=== PATIENT | female | born 1990 | race African-American/Black ===

== ENCOUNTER 2021-06-25 17:37 | Emergency (ER) | payer SELFPAY ==
[2021-06-25 17:58] VITALS: BP 95/64; PULSE 79; RESP 18; TEMP 36.8; O2SAT 100; BMI 24.7
[2021-06-25 19:24] LABS: Basophils # 0.1 10^3/uL (0.0-0.1); Basophils % 0.5 %; Eosinophils # 0.4 10^3/uL (0.0-0.8); Eosinophils % 3.4 %; Hematocrit 43.4 % (37.0-47.0); Hemoglobin 15.2 g/dL (11.5-15.3); Lymphocytes # 1.6 10^3/uL (0.8-4.8); Lymphocytes % 13.2 %; Mean Corpuscular Hemoglobin 30.2 pg (28.0-34.0); Mean Corpuscular Volume 86.3 fl (81-99); Mean Platelet Volume 10.8 fL (7.4-10.4); Monocytes # 0.5 10^3/uL (0.2-0.9); Monocytes % 4.4 %; Neutrophils # 9.16 10^3/uL (1.8-7.7); Neutrophils % 78.2 %; Nucleated Red Blood Cells % 0 %; Platelet Count 274 10^3/cmm (130-400); Red Blood Count 5.03 10^6/uL (4.1-5.3); Red Cell Distribution Width 11.8 % (12.1-15.1); White Blood Count 11.7 10^3/uL (4.0-10.0)
[2021-06-25 19:38] LABS: HCG, Serum Qual Positive (Negative)
[2021-06-25 19:43] LABS: Alanine Aminotransferase 35 U/L (0-33); Albumin Level 4.3 g/dL (3.5-5.2); Alkaline Phosphatase 67 IU/L (35-105); Anion Gap 14.8 (5-19); Aspartate Amino Transferase 18 U/L (0-32); Blood Urea Nitrogen 6 mg/dL (6-20); Calcium 8.9 mg/dL (8.5-10.5); Carbon Dioxide 25 mmol/L (22-29); Chloride 96 mmol/L (98-107); Globulin 3.1 g/dL (1.3-4.6); Glomerular Filtration Rate 177.8 mL/min (90-130); Glucose 79 mg/dL (65-115); Osmolality Calculated 269 mOsm/kg (285-295); Potassium 4.8 mmol/L (3.5-5.1); Sodium 131 mmol/L (136-145); Total Bilirubin 0.5 mg/dL (0.15-1.2); Total Protein 7.4 g/dL (6.6-8.7)
[2021-06-25 19:53] VITALS: BP 106/77; PULSE 81; RESP 18; O2SAT 100
[2021-06-25 20:23] LABS: Add Urine Microscopic? NO; Charge for UA Resulting for Rev
[2021-06-25 20:29] LABS: Bilirubin Urine Neg (Negative); Blood Urine Neg (Negative); Glucose Urine UA Norm (Normal); Ketones Urine 2+ (Negative); Leukocyte Esterase Urine Negative (Negative); Nitrate Urine Negative (Negative); Protein Urine Neg (Negative); Urine Appearance Clear (CLEAR); Urine Color Dark Yellow (Yellow); Urobilinogen Urine 1 mg/dL (Negative); pH Urine 6 (5-7)
[2021-06-25 20:37] LABS: Lipase 49 U/L (13-60)
--- NOTE | 2021-06-25 20:43 | W.ED.ABDPA2 ---
HPI - Abdominal Pain General: Chief Complaint: Abdominal Pain Stated Complaint: VOMITING BLOOD Time Seen by Provider: 06/25/21 20:30 Source: patient Mode of arrival: ambulatory Limitations: no limitations History of Present Illness: HPI narrative: 30-year-old female who is currently she states she is unsure when her last menstruation was but she believes it was just 8 weeks ago states that tonight she has been having nausea vomiting with epigastric pain states been on for 3 days been taking [id number] medicine with no improvement states she had slight vomiting of blood. States she is abdominal pain in the epigastric region that is cramping in nature she rates a 2 out of 10 denies any vaginal bleeding denies any worsening proving factors denies any fevers. Associated Symptoms: Reports nausea and vomiting; Denies chills, dysuria and fever(s) Review of Systems Const: Denies: fever(s), chills, body aches or change in appetite Eyes: Denies: blurry vision or eye discomfort ENMT: Denies: throat pain or dental pain Card: Denies: chest pain Resp: Denies: dyspnea GI: Reports: abdominal pain, nausea and vomiting : Denies: dysuria Musc: Denies: neck pain or back pain Skin/Breast: Denies: rash Neuro: Denies: headache(s) Psych: Denies: depression Kartik/Lymph: Denies: easy bruising All/Imm: Denies: urticaria Physical Exam Const: COMMON NORMALS: no acute distress, patient oriented x3 and healthy appearing HENMT: COMMON NORMALS: normocephalic and atraumatic HEAD & SCALP: normocephalic and atraumatic Eye: COMMON NORMALS: Equal, round and reactive pupils present and EOMs intact bilaterally PUPIL: Yes Equal, round and reactive pupils present Neck/C-Spine: COMMON NORMALS: full ROM and supple Chest: COMMONS NORMALS: normal inspection of the chest and normal palpation of entire chest wall Resp: COMMON NORMALS: normal respiratory effort, No retractions, No use of accessory muscles and clear to auscultation bilaterally AUSCULTATION: clear to auscultation bilaterally Cardio: COMMON NORMALS: regular rate, regular rhythm and No murmurs present (Cardio) RATE: regular rate RHYTHM: regular rhythm GI: COMMON NORMALS: Normal to inspection, nondistended, normoactive bowel sounds present, Soft to palpation, non-tender and no masses PALPATION: Yes Soft to palpation Extremity: COMMON NORMALS: normal to inspection and full ROM Neuro: COMMON NORMALS: patient oriented x3, moves all extremities and no focal motor deficits Psych: COMMON NORMALS: mental status grossly normal, Normal thought process present and cooperative THOUGHT PROCESS: Normal thought process present Skin: COMMON NORMALS: no rashes or lesions noted and no wounds GENERAL SKIN EXAM: no rashes or lesions noted Course Vital Signs: Vital signs: Vital Signs Temperature 98.2 F 06/25/21 17:58 Pulse Rate 81 06/25/21 19:53 Respiratory Rate 18 06/25/21 19:53 Blood Pressure 106/77 06/25/21 19:53 Pulse Oximetry 100 06/25/21 19:53 MDM - Abdominal Pain MDM Narrative: Medical decision making narrative: Patient presents here with vomiting in she feels much improved here after Reglan abdominal exam at discharge benign she has no tenderness on exam no signs of cholecystitis I did a bedside ultrasound showed IUP roughly 7 to 8 weeks heart rate 146. Will prescribe her Reglan get her follow-up with OB she is return if worsening her and her understand agree to plan. Lab Data: Labs: Lab Results 06/25/21 06/25/21 06/25/21 18:07 19:14 19:14 WBC 11.7 10^3/uL H 10 ^3/uL (4.0-10.0) RBC 5.03 10^6/uL 10^6 /uL (4.1-5.3) Hgb 15.2 g/dL g/dL (11.5-15.3) Hct 43.4 % % (37.0-47.0) MCV 86.3 fl fl (81-99) MCH 30.2 pg pg (28.0-34.0) MCHC 35.0 g/dL g/dL (30.0-36.0) RDW 11.8 % L % (12.1-15.1) Plt Count 274 10^3/cmm 10^3 /cmm (130-400) MPV 10.8 fL H fL (7.4-10.4) Neut % (Auto) 78.2 % % Lymph % (Auto) 13.2 % % [place] % (Auto) 4.4 % % Eos % (Auto) 3.4 % % Baso % (Auto) 0.5 % % Neut # (Auto) 9.16 10^3/uL H 10 ^3/uL (1.8-7.7) Lymph # (Auto) 1.6 10^3/uL 10^3/ uL (0.8-4.8) [place] # (Auto) 0.5 10^3/uL 10^3/ uL (0.2-0.9) Eos # (Auto) 0.4 10^3/uL 10^3/ uL (0.0-0.8) Baso # (Auto) 0.1 10^3/uL 10^3/ uL (0.0-0.1) Nucleated RBC % (a uto) 0 % % Nucleated RBCs # 0.0 /100WBC /100W BC Sodium 131 mmol/L L mmol /L (136-145) Potassium 4.8 mmol/L mmol/L (3.5-5.1) Chloride 96 mmol/L L mmol/ L (98-107) Carbon Dioxide 25 mmol/L mmol/L (22-29) Anion Gap 14.8 (5-19) BUN 6 mg/dL mg/dL (6-20) Creatinine 0.5 mg/dL mg/dL (0.5-0.9) GFR Calculation 177.8 mL/min H mL /min (90-130) Glucose 79 mg/dL mg/dL (65-115) Calculated Osmolal ity 269 mOsm/kg L mOs m/kg (285-295) Calcium 8.9 mg/dL mg/dL (8.5-10.5) Total Bilirubin 0.5 mg/dL mg/dL (0.15-1.2) AST 18 U/L U/L (0-32) ALT 35 U/L H U/L (0-33) Alkaline Phosphata se 67 IU/L IU/L (35-105) Total Protein 7.4 g/dL g/dL (6.6-8.7) Albumin 4.3 g/dL g/dL (3.5-5.2) Globulin 3.1 g/dL g/dL (1.3-4.6) Lipase 49 U/L U/L (13-60) HCG, Qual Urine Color Dark yellow (Yellow) Urine Appearance Clear (CLEAR) Urine pH 6 (5-7) Ur Specific Gravit y 1.020 (1.005-1.030) Urine Protein Neg (Negative) Urine Glucose (UA) Norm (Normal) Urine Ketones 2+ H (Negative) Urine Blood Neg (Negative) Urine Nitrate Negative (Negative) Urine Bilirubin Neg (Negative) Urine Urobilinogen 1 mg/dL H mg/dL (Negative) Ur Leukocyte Daisha ase Negative (Negative) Blood Type Rho(D) Type 06/25/21 06/25/21 19:14 21:08 WBC RBC Hgb Hct MCV MCH MCHC RDW Plt Count MPV Neut % (Auto) Lymph % (Auto) [place] % (Auto) Eos % (Auto) Baso % (Auto) Neut # (Auto) Lymph # (Auto) [place] # (Auto) Eos # (Auto) Baso # (Auto) Nucleated RBC % (a uto) Nucleated RBCs # Sodium Potassium Chloride Carbon Dioxide Anion Gap BUN Creatinine GFR Calculation Glucose Calculated Osmolal ity Calcium Total Bilirubin AST ALT Alkaline Phosphata se Total Protein Albumin Globulin Lipase HCG, Qual Positive H (Negative) Urine Color Urine Appearance Urine pH Ur Specific Gravit y Urine Protein Urine Glucose (UA) Urine Ketones Urine Blood Urine Nitrate Urine Bilirubin Urine Urobilinogen Ur Leukocyte Daisha ase Blood Type B Positive Rho(D) Type Positive Discharge Plan Discharge Patient Disposition: Home Clinical Impression: Vomiting affecting Condition: Stable Prescriptions: New Reglan 10 mg tablet 10 mg PO Q6H PRN (Reason: nausea and vomiting) Qty: 20 RF: 0 Discharge Orders: Discharge ED (Routine); Ordered 06/25/21 Ordered By: Sandra Li Referrals: Yony Delarosa MD [Physician] - 1-3 days Discharge Diet: Advance as tolerated Discharge Activity: Resume usual activity Patient Instructions: Hyperemesis Gravidarum (ED) Coding Level of Care Code ED Knitting Demonstrator for Chg Fwd Exam Comprehensive
[2021-06-25] MEDS: diphenhydrAMINE 50 mg/mL SDV 1mL IVP (20:57)
[2021-06-25] MEDS: metoclopramide 5 mg/mL SDV 2 mL 10 MG IVP (20:57)
[2021-06-25] MEDS: sodium chloride 0.9% 1,000 ML 999 ML IV (21:11)
[2021-06-25 22:05] VITALS: BP 111/72; PULSE 80; RESP 16; O2SAT 94
--- NOTE | 2021-06-26 08:34 | DCPLANNER ---
Addendum entered by Rachael Zheng 07/27/21 06:05: hair salon manager called [facility], spoke with Eran to confirm that an appointment had been scheduled for patient. hair salon manager was told that clinic has tried multiple times to reach patient, and has not been able to speak with patient about an appointment. Clinic will send patient a letter asking patient to call clinic to schedule an appointment. Original Note: hair salon manager had message to schedule a follow up appointment for patient with [facility]. hair salon manager called [facility], spoke with Eran, gave clinic patients information. hair salon manager was told that patients information will be printed and reviewed. Clinic will call patient with appointment information.
--- NOTE | 2021-07-10 12:40 | DCPLANNER ---
business affairs manager called [facility] to confirm that a follow up appointment had been scheduled. business affairs manager was told that clinic has tried to call patient, does not have a voicemail set up. business affairs manager was told that a letter was sent to patient, to call clinic to schedule a follow up appointment.
== END 2021-06-25 22:06 | disposition home or self-care (01) ==
PROVIDERS: Nurse Practitioner Family; Emergency Provider Emergency Medicine
DX: O21.9 Vomiting of pregnancy, unspecified (principal); Z3A.08 8 weeks gestation of pregnancy
CPT/HCPCS: 80053; 81003; 83690; 84703; 85025; 86850; 86900; 96361; 96374; 96375; 99283; J1200; J2765; J7030

== ENCOUNTER 2021-06-27 22:47 | Emergency (ER) | payer SELFPAY ==
[2021-06-27 22:50] VITALS: BP 134/85; PULSE 111; RESP 18; TEMP 37.3; O2SAT 100; BMI 23.3
[2021-06-27 23:01] LABS: Basophils # 0.1 10^3/uL (0.0-0.1); Basophils % 0.4 %; Eosinophils # 0.3 10^3/uL (0.0-0.8); Eosinophils % 2.2 %; Hematocrit 42.7 % (37.0-47.0); Hemoglobin 15.5 g/dL (11.5-15.3); Lymphocytes # 2.8 10^3/uL (0.8-4.8); Lymphocytes % 20.3 %; Mean Corpuscular HGB Conc 36.3 g/dL (30.0-36.0); Mean Corpuscular Volume 82.8 fl (81-99); Mean Platelet Volume 10.8 fL (7.4-10.4); Monocytes # 0.7 10^3/uL (0.2-0.9); Monocytes % 5.3 %; Neutrophils # 9.87 10^3/uL (1.8-7.7); Neutrophils % 71.4 %; Nucleated Red Blood Cells % 0 %; Platelet Count 301 10^3/cmm (130-400); Red Blood Count 5.16 10^6/uL (4.1-5.3); Red Cell Distribution Width 11.6 % (12.1-15.1); White Blood Count 13.8 10^3/uL (4.0-10.0)
[2021-06-27] MEDS: benztropine 1 mg/mL SDV 2 mL IM (23:05)
[2021-06-27] MEDS: sodium chloride 0.9% 1,000 ML 999 ML IV (23:05)
[2021-06-27] MEDS: diphenhydrAMINE 50 mg/mL SDV 1mL IVP (23:06)
[2021-06-27 23:26] LABS: Alanine Aminotransferase 28 U/L (0-33); Albumin Level 4.6 g/dL (3.5-5.2); Alkaline Phosphatase 69 IU/L (35-105); Aspartate Amino Transferase 19 U/L (0-32); Blood Urea Nitrogen 6 mg/dL (6-20); Calcium 9.7 mg/dL (8.5-10.5); Carbon Dioxide 17 mmol/L (22-29); Chloride 95 mmol/L (98-107); Globulin 3.1 g/dL (1.3-4.6); Glomerular Filtration Rate 177.8 mL/min (90-130); Glucose 92 mg/dL (65-115); Osmolality Calculated 273 mOsm/kg (285-295); Sodium 133 mmol/L (136-145); Total Bilirubin 0.6 mg/dL (0.15-1.2); Total Protein 7.7 g/dL (6.6-8.7)
[2021-06-27 23:39] VITALS: BP 112/73; PULSE 85; RESP 16; O2SAT 97
--- NOTE | 2021-06-28 00:18 | W.ED.HA ---
HPI - Headache General: Chief Complaint: Headache Stated Complaint: PAIN BEHIND THE EYES Time Seen by Provider: 06/27/21 22:49 Source: patient and EMS Mode of arrival: EMS History of Present Illness: HPI Narrative: 30-year-old female who is here from home by EMS. Patient's currently 8 weeks seen by me yesterday for vomiting in . Patient was given IV Reglan states she took a pill at home to states that today she is just felt very off. She states she has abnormal movements feels like she is just shaking of her body having neck twitches. She denies any actual headache to me. Denies any fever denies any vomiting today denies abdominal pain or vaginal bleeding. Associated symptoms: Deny chest pain, fever(s), nausea, rash or vomiting Review of Systems Const: Denies: fever(s), chills, body aches or change in appetite Eyes: Denies: blurry vision or eye discomfort ENMT: Denies: throat pain or dental pain Card: Denies: chest pain Resp: Denies: dyspnea GI: Denies: abdominal pain, nausea, vomiting or diarrhea : Denies: dysuria Musc: Denies: neck pain or back pain Skin/Breast: Denies: rash Neuro: Denies: headache(s) Psych: Reports: anxiety Kartik/Lymph: Denies: easy bruising All/Imm: Denies: urticaria Physical Exam Const: COMMON NORMALS: patient oriented x3 and healthy appearing GENERAL APPEARANCE: anxious HENMT: COMMON NORMALS: normocephalic and atraumatic HEAD & SCALP: normocephalic and atraumatic Eye: COMMON NORMALS: Equal, round and reactive pupils present and EOMs intact bilaterally PUPIL: Yes Equal, round and reactive pupils present Neck/C-Spine: COMMON NORMALS: full ROM and supple Chest: COMMONS NORMALS: normal inspection of the chest and normal palpation of entire chest wall Resp: COMMON NORMALS: normal respiratory effort, No retractions, No use of accessory muscles and clear to auscultation bilaterally AUSCULTATION: clear to auscultation bilaterally Cardio: COMMON NORMALS: regular rate, regular rhythm and No murmurs present (Cardio) RATE: regular rate RHYTHM: regular rhythm GI: COMMON NORMALS: Normal to inspection, nondistended, normoactive bowel sounds present, Soft to palpation, non-tender and no masses PALPATION: Yes Soft to palpation Extremity: COMMON NORMALS: normal to inspection and full ROM Neuro: COMMON NORMALS: patient oriented x3, moves all extremities and no focal motor deficits Psych: COMMON NORMALS: mental status grossly normal, Normal thought process present and cooperative THOUGHT PROCESS: Normal thought process present Skin: COMMON NORMALS: no rashes or lesions noted and no wounds GENERAL SKIN EXAM: no rashes or lesions noted Course Vital Signs: Vital signs: Vital Signs Temperature 99.2 F 06/27/21 22:50 Pulse Rate 85 06/27/21 23:39 Respiratory Rate 16 06/27/21 23:39 Blood Pressure 112/73 06/27/21 23:39 Pulse Oximetry 97 06/27/21 23:39 MDM - Headache MDM Narrative: Medical decision making narrative: Patient presents here with I believe likely extrapyrimidial symptoms with akathisia is here from IV Reglan and p.o. Reglan. Patient here had symptoms consistent with EPS and felt much improved after Benadryl and Cogentin will have her stop the Reglan flipped over to Zofran. She has no headache here and had no headache at home no more vomiting no abdominal pain or vaginal bleeding she is to follow-up with OB and return if worsening. Lab Data: Labs: Lab Results 06/27/21 06/27/21 22:40 22:40 WBC 13.8 10^3/uL H 10 ^3/uL (4.0-10.0) RBC 5.16 10^6/uL 10^6 /uL (4.1-5.3) Hgb 15.5 g/dL H g/dL (11.5-15.3) Hct 42.7 % % (37.0-47.0) MCV 82.8 fl fl (81-99) MCH 30.0 pg pg (28.0-34.0) MCHC 36.3 g/dL H g/dL (30.0-36.0) RDW 11.6 % L % (12.1-15.1) Plt Count 301 10^3/cmm 10^3 /cmm (130-400) MPV 10.8 fL H fL (7.4-10.4) Neut % (Auto) 71.4 % % Lymph % (Auto) 20.3 % % [place] % (Auto) 5.3 % % Eos % (Auto) 2.2 % % Baso % (Auto) 0.4 % % Neut # (Auto) 9.87 10^3/uL H 10 ^3/uL (1.8-7.7) Lymph # (Auto) 2.8 10^3/uL 10^3/ uL (0.8-4.8) [place] # (Auto) 0.7 10^3/uL 10^3/ uL (0.2-0.9) Eos # (Auto) 0.3 10^3/uL 10^3/ uL (0.0-0.8) Baso # (Auto) 0.1 10^3/uL 10^3/ uL (0.0-0.1) Nucleated RBC % (a uto) 0 % % Nucleated RBCs # 0.0 /100WBC /100W BC Sodium 133 mmol/L L mmol /L (136-145) Potassium 3.0 mmol/L L mmol /L (3.5-5.1) Chloride 95 mmol/L L mmol/ L (98-107) Carbon Dioxide 17 mmol/L L mmol/ L (22-29) Anion Gap 24.0 H (5-19) BUN 6 mg/dL mg/dL (6-20) Creatinine 0.5 mg/dL mg/dL (0.5-0.9) GFR Calculation 177.8 mL/min H mL /min (90-130) Glucose 92 mg/dL mg/dL (65-115) Calculated Osmolal ity 273 mOsm/kg L mOs m/kg (285-295) Calcium 9.7 mg/dL mg/dL (8.5-10.5) Total Bilirubin 0.6 mg/dL mg/dL (0.15-1.2) AST 19 U/L U/L (0-32) ALT 28 U/L U/L (0-33) Alkaline Phosphata se 69 IU/L IU/L (35-105) Total Protein 7.7 g/dL g/dL (6.6-8.7) Albumin 4.6 g/dL g/dL (3.5-5.2) Globulin 3.1 g/dL g/dL (1.3-4.6) Discharge Plan Discharge Patient Disposition: Home Clinical Impression: Acathisia Condition: Stable Prescriptions: New ondansetron 4 mg tablet,disintegrating 4 mg PO Q6H PRN (Reason: nausea and vomiting) Qty: 14 RF: 0 Discontinued metoclopramide HCl [Reglan] 10 mg tablet 10 mg PO Q6H PRN (Reason: nausea and vomiting) Qty: 20 RF: 0 Discharge Orders: Discharge ED (Routine); Ordered 06/28/21 Ordered By: Sandra Li Discharge Diet: Advance as tolerated Discharge Activity: Resume usual activity Patient Instructions: Extrapyramidal Symptoms (ED) Coding Level of Care Code ED Master Scheduler for Nelson Dave
[2021-06-28 00:41] VITALS: BP 112/73; PULSE 85; RESP 16; O2SAT 97
== END 2021-06-28 00:51 | disposition home or self-care (01) ==
PROVIDERS: Emergency Provider Emergency Medicine
DX: O26.891 Other specified pregnancy related conditions, first trimester (principal); Z3A.08 8 weeks gestation of pregnancy; G25.71 Drug induced akathisia; T45.0X5A Adverse effect of antiallergic and antiemetic drugs, initial encounter
CPT/HCPCS: 80053; 85025; 96361; 96372; 96374; 99283; J0515; J1200; J7030

== ENCOUNTER 2021-07-12 15:06 | Observation (INO) | payer SELFPAY ==
[2021-07-12 16:10] VITALS: BP 115/74; PULSE 101; RESP 16; TEMP 36.9; O2SAT 98
--- NOTE | 2021-07-12 16:13 | ED_ITS ---
Documented by User: Katrin Choi PA-C 07/12/21 16:15 HPI - Nausea/Vomiting/Diarrhea General: Chief complaint: Nausea/Vomiting/Diarrhea Stated complaint: THROWING UP/FATIGUE Time Seen by Provider: 07/12/21 20:19 Source: family Mode of arrival: ambulatory Limitations: language barrier History of Present Illness: HPI Narrative: 30-year-old female presents to the ER today with her significant other for nausea and vomiting in . Significant other does most of the speaking due to a language barrier. He reports patient is approximately 9 weeks . She has had nausea and vomiting throughout so far. Patient did see her LABOR AND DELIVERY REGISTERED NURSE about 4 days ago. At that time she was given a shot and 2 pills for vomiting. Significant other reports that helped but when she ran out of the pills the nausea and vomiting started again. Patient reports she has unable to eat or drink due to throwing it right back up. Denies any vaginal bleeding or abdominal cramping. Denies any urinary symptoms. Patient denies headache, fever, chills, chest pain, shortness of breath. Denies any recent sick contacts. MD elicited complaint: nausea and vomiting Pertinent past history: other () Course Vital Signs: Vital signs: Vital Signs Temperature 98.4 F 07/12/21 16:10 Pulse Rate 101 H 07/12/21 16:10 Respiratory Rate 21 H 07/12/21 23:37 Blood Pressure 136/85 07/12/21 23:37 Pulse Oximetry 98 07/12/21 16:10 MDM - Nausea/Vomiting/Diarrhea Lab Data: Labs: Lab Results 07/12/21 07/12/21 07/12/21 18:46 18:46 18:46 WBC 13.0 10^3/uL H 10 ^3/uL (4.0-10.0) RBC 5.10 10^6/uL 10^6 /uL (4.1-5.3) Hgb 15.2 g/dL g/dL (11.5-15.3) Hct 43.1 % % (37.0-47.0) MCV 84.5 fl fl (81-99) MCH 29.8 pg pg (28.0-34.0) MCHC 35.3 g/dL g/dL (30.0-36.0) RDW 11.6 % L % (12.1-15.1) Plt Count 346 10^3/cmm 10^3 /cmm (130-400) MPV 10.2 fL fL (7.4-10.4) Neut % (Auto) 77.1 % % Lymph % (Auto) 12.9 % % [place] % (Auto) 4.9 % % Eos % (Auto) 4.2 % % Baso % (Auto) 0.5 % % Neut # (Auto) 10.01 10^3/uL H 1 0^3/uL (1.8-7.7) Lymph # (Auto) 1.7 10^3/uL 10^3/ uL (0.8-4.8) [place] # (Auto) 0.6 10^3/uL 10^3/ uL (0.2-0.9) Eos # (Auto) 0.5 10^3/uL 10^3/ uL (0.0-0.8) Baso # (Auto) 0.1 10^3/uL 10^3/ uL (0.0-0.1) Nucleated RBC % (a uto) 0 % % Nucleated RBCs # 0.0 /100WBC /100W BC Sodium 133 mmol/L L mmol /L (136-145) Potassium 4.0 mmol/L mmol/L (3.5-5.1) Chloride 95 mmol/L L mmol/ L (98-107) Carbon Dioxide 22 mmol/L mmol/L (22-29) Anion Gap 20.0 H (5-19) BUN 7 mg/dL mg/dL (6-20) Creatinine 0.4 mg/dL L mg/dL (0.5-0.9) GFR Calculation 230.0 mL/min H mL /min (90-130) Glucose 83 mg/dL mg/dL (65-115) Calculated Osmolal ity 273 mOsm/kg L mOs m/kg (285-295) Calcium 9.3 mg/dL mg/dL (8.5-10.5) Magnesium Total Bilirubin 0.6 mg/dL mg/dL (0.15-1.2) AST 54 U/L H U/L (0-32) ALT 129 U/L H U/L (0-33) Alkaline Phosphata se 116 IU/L H IU/L (35-105) Total Protein 7.6 g/dL g/dL (6.6-8.7) Albumin 4.3 g/dL g/dL (3.5-5.2) Globulin 3.3 g/dL g/dL (1.3-4.6) Lipase 57 U/L U/L (13-60) HCG, Qual Positive H (Negative) Ser , Vonnie i-Qnt Urine Color Urine Appearance Urine pH Ur Specific Gravit y Urine Protein Urine Glucose (UA) Urine Ketones Urine Blood Urine Nitrate Urine Bilirubin Urine Urobilinogen Ur Leukocyte Daisha ase Urine RBC Urine WBC Ur Squamous Epith Cells Amorphous Sediment Urine Bacteria Coronavirus 229E ( PCR) SARS-CoV-2 (PCR) 07/12/21 07/12/21 07/12/21 18:46 21:05 23:06 WBC RBC Hgb Hct MCV MCH MCHC RDW Plt Count MPV Neut % (Auto) Lymph % (Auto) [place] % (Auto) Eos % (Auto) Baso % (Auto) Neut # (Auto) Lymph # (Auto) [place] # (Auto) Eos # (Auto) Baso # (Auto) Nucleated RBC % (a uto) Nucleated RBCs # Sodium Potassium Chloride Carbon Dioxide Anion Gap BUN Creatinine GFR Calculation Glucose Calculated Osmolal ity Calcium Magnesium 1.9 mg/dL mg/dL (1.7-2.3) Total Bilirubin AST ALT Alkaline Phosphata se Total Protein Albumin Globulin Lipase HCG, Qual Ser , Vonnie i-Qnt 043498.00 mIU/mL mIU/mL Urine Color Yellow (Yellow) Urine Appearance Clear (CLEAR) Urine pH 6 (5-7) Ur Specific Gravit y 1.015 (1.005-1.030) Urine Protein Neg (Negative) Urine Glucose (UA) Norm (Normal) Urine Ketones 2+ H (Negative) Urine Blood Neg (Negative) Urine Nitrate Negative (Negative) Urine Bilirubin Neg (Negative) Urine Urobilinogen Neg mg/dL mg/dL (Negative) Ur Leukocyte Daisha ase 2+ H (Negative) Urine RBC 0-4 /hpf H /hpf (0-2) Urine WBC 10-15 /hpf H /hpf (0-5) Ur Squamous Epith Cells 10-15 /hpf H /hpf (0-5) Amorphous Sediment Not Reportable Urine Bacteria Trace /hpf /hpf (NONE) Coronavirus 229E ( PCR) Not detected (NOT DETECT) SARS-CoV-2 (PCR) Not detected (NOT DETECT) Discharge Plan Discharge Patient Disposition: Admitted As Inpatient Clinical Impression: Nausea and vomiting, , Cholecystitis Condition: Stable Discharge Diet: Advance as tolerated Discharge Activity: Resume usual activity Coding Level of Care Code ED Contract Law Specialist for Chg Fwd Exam Comprehensive Documented by User: Sandra Li MD 07/13/21 00:35 HPI - Nausea/Vomiting/Diarrhea General: Chief complaint: Nausea/Vomiting/Diarrhea Stated complaint: THROWING UP/FATIGUE Time Seen by Provider: 07/12/21 20:19 Physical Exam Const: COMMON NORMALS: no acute distress, patient oriented x3 and healthy appearing HENMT: COMMON NORMALS: normocephalic and atraumatic HEAD & SCALP: normocephalic and atraumatic Eye: COMMON NORMALS: Equal, round and reactive pupils present and EOMs intact bilaterally PUPIL: Yes Equal, round and reactive pupils present Neck/C-Spine: COMMON NORMALS: full ROM and supple Chest: COMMONS NORMALS: normal inspection of the chest and normal palpation of entire chest wall Resp: COMMON NORMALS: normal respiratory effort, No retractions, No use of accessory muscles and clear to auscultation bilaterally AUSCULTATION: clear to auscultation bilaterally Cardio: COMMON NORMALS: regular rate, regular rhythm and No murmurs present (Cardio) RATE: regular rate RHYTHM: regular rhythm GI: COMMON NORMALS: Normal to inspection, nondistended, normoactive bowel sounds present, Soft to palpation, non-tender and no masses PALPATION: Yes Soft to palpation and Yes Tenderness to palpation present (GI) Details: RUQ Extremity: COMMON NORMALS: normal to inspection and full ROM Neuro: COMMON NORMALS: patient oriented x3, moves all extremities and no focal motor deficits Psych: COMMON NORMALS: mental status grossly normal, Normal thought process present and cooperative THOUGHT PROCESS: Normal thought process present Skin: COMMON NORMALS: no rashes or lesions noted and no wounds GENERAL SKIN EXAM: no rashes or lesions noted Course Vital Signs: Vital signs: Vital Signs Temperature 98.4 F 07/12/21 16:10 Pulse Rate 101 H 07/12/21 16:10 Respiratory Rate 21 H 07/12/21 23:37 Blood Pressure 136/85 07/12/21 23:37 Pulse Oximetry 98 07/12/21 16:10 MDM - Nausea/Vomiting/Diarrhea MDM Narrative: Medical decision making narrative: Patient presents with a bdominal pain and ultrasound did show possible cholecystitis her white count here is mildly elevated as well she continues to have pain I did speak to surgery along with LABOR AND DELIVERY REGISTERED NURSE will admit patient for cholecystitis start her on antibiotics ultrasound of lower abdomen did show an IUP no related complaints no bleeding Lab Data: Labs: Lab Results 07/12/21 07/12/21 07/12/21 18:46 18:46 18:46 WBC 13.0 10^3/uL H 10 ^3/uL (4.0-10.0) RBC 5.10 10^6/uL 10^6 /uL (4.1-5.3) Hgb 15.2 g/dL g/dL (11.5-15.3) Hct 43.1 % % (37.0-47.0) MCV 84.5 fl fl (81-99) MCH 29.8 pg pg (28.0-34.0) MCHC 35.3 g/dL g/dL (30.0-36.0) RDW 11.6 % L % (12.1-15.1) Plt Count 346 10^3/cmm 10^3 /cmm (130-400) MPV 10.2 fL fL (7.4-10.4) Neut % (Auto) 77.1 % % Lymph % (Auto) 12.9 % % [place] % (Auto) 4.9 % % Eos % (Auto) 4.2 % % Baso % (Auto) 0.5 % % Neut # (Auto) 10.01 10^3/uL H 1 0^3/uL (1.8-7.7) Lymph # (Auto) 1.7 10^3/uL 10^3/ uL (0.8-4.8) [place] # (Auto) 0.6 10^3/uL 10^3/ uL (0.2-0.9) Eos # (Auto) 0.5 10^3/uL 10^3/ uL (0.0-0.8) Baso # (Auto) 0.1 10^3/uL 10^3/ uL (0.0-0.1) Nucleated RBC % (a uto) 0 % % Nucleated RBCs # 0.0 /100WBC /100W BC Sodium 133 mmol/L L mmol /L (136-145) Potassium 4.0 mmol/L mmol/L (3.5-5.1) Chloride 95 mmol/L L mmol/ L (98-107) Carbon Dioxide 22 mmol/L mmol/L (22-29) Anion Gap 20.0 H (5-19) BUN 7 mg/dL mg/dL (6-20) Creatinine 0.4 mg/dL L mg/dL (0.5-0.9) GFR Calculation 230.0 mL/min H mL /min (90-130) Glucose 83 mg/dL mg/dL (65-115) Calculated Osmolal ity 273 mOsm/kg L mOs m/kg (285-295) Calcium 9.3 mg/dL mg/dL (8.5-10.5) Magnesium Total Bilirubin 0.6 mg/dL mg/dL (0.15-1.2) AST 54 U/L H U/L (0-32) ALT 129 U/L H U/L (0-33) Alkaline Phosphata se 116 IU/L H IU/L (35-105) Total Protein 7.6 g/dL g/dL (6.6-8.7) Albumin 4.3 g/dL g/dL (3.5-5.2) Globulin 3.3 g/dL g/dL (1.3-4.6) Lipase 57 U/L U/L (13-60) HCG, Qual Positive H (Negative) Ser , Vonnie i-Qnt Urine Color Urine Appearance Urine pH Ur Specific Gravit y Urine Protein Urine Glucose (UA) Urine Ketones Urine Blood Urine Nitrate Urine Bilirubin Urine Urobilinogen Ur Leukocyte Daisha ase Urine RBC Urine WBC Ur Squamous Epith Cells Amorphous Sediment Urine Bacteria Coronavirus 229E ( PCR) SARS-CoV-2 (PCR) 07/12/21 07/12/21 07/12/21 18:46 21:05 23:06 WBC RBC Hgb Hct MCV MCH MCHC RDW Plt Count MPV Neut % (Auto) Lymph % (Auto) [place] % (Auto) Eos % (Auto) Baso % (Auto) Neut # (Auto) Lymph # (Auto) [place] # (Auto) Eos # (Auto) Baso # (Auto) Nucleated RBC % (a uto) Nucleated RBCs # Sodium Potassium Chloride Carbon Dioxide Anion Gap BUN Creatinine GFR Calculation Glucose Calculated Osmolal ity Calcium Magnesium 1.9 mg/dL mg/dL (1.7-2.3) Total Bilirubin AST ALT Alkaline Phosphata se Total Protein Albumin Globulin Lipase HCG, Qual Ser , Vonnie i-Qnt 425133.00 mIU/mL mIU/mL Urine Color Yellow (Yellow) Urine Appearance Clear (CLEAR) Urine pH 6 (5-7) Ur Specific Gravit y 1.015 (1.005-1.030) Urine Protein Neg (Negative) Urine Glucose (UA) Norm (Normal) Urine Ketones 2+ H (Negative) Urine Blood Neg (Negative) Urine Nitrate Negative (Negative) Urine Bilirubin Neg (Negative) Urine Urobilinogen Neg mg/dL mg/dL (Negative) Ur Leukocyte Daisha ase 2+ H (Negative) Urine RBC 0-4 /hpf H /hpf (0-2) Urine WBC 10-15 /hpf H /hpf (0-5) Ur Squamous Epith Cells 10-15 /hpf H /hpf (0-5) Amorphous Sediment Not Reportable Urine Bacteria Trace /hpf /hpf (NONE) Coronavirus 229E ( PCR) Not detected (NOT DETECT) SARS-CoV-2 (PCR) Not detected (NOT DETECT) Imaging Data^: US: Attestation: I personally reviewed and interpreted this imaging study as follows: Radiologist's impression: [address] [address] Ultrasound Report Signed Patient: Laura Thomas Unit #: [id number] : 1990 Age/Sex: 30 / F ADM Date: 07/12/21 Loc: ER Room/Bed: Attending Dr: Ordering Provider/Ordering MD: Corinna Tillman MD Date of Service: 07/12/21 Procedure(s): US gall bladder [id number] Accession Number(s): [id number] Report Number: [id number] PROCEDURE INFORMATION: Exam: US Abdomen; Limited Exam date and time: 07/12/2021 9:02 PM Age: 30 years old Clinical indication: Nausea and vomiting and other: 9w5d ; Other: Epigastric pain which radiates to the back x 20 days; Patient HX: Was seen in this er on the 22 of June for the same symptoms. Nausea and vomiting with epigastric pain while in early 1st trimester. ; Additional info: Ruq abd pain TECHNIQUE: Imaging protocol: US abdomen. Real time ultrasound with image documentation. Limited exam focused on the region of clinical interest. COMPARISON: US OB <=14 wk fetus w transvag 07/12/2021 9:24 PM FINDINGS: Liver: The liver is unremarkable. Gallbladder: Sonographic Rees sign is positive. There is echogenic debris without shadowing in the gallbladder lumen. The gallbladder wall is mildly diffusely thickened. There is no pericholecystic fluid. Gallbladder lumen is mildly distended. Common bile duct: The common bile duct is nondilated measuring 5 mm Pancreas: The visible portion of the pancreas is unremarkable. The distal body and tail is obscured. Right kidney: The right kidney is unremarkable. Appendix: The key ringer reports the presence of a normal appendix. 2 images are provided which suggest but do not confirm this finding. Aorta: The abdominal aorta is unremarkable. Portal venous: Portal vein is patent. Hepatopetal flow is demonstrated. Inferior vena cava: The IVC is unremarkable. Intraperitoneal space: No pelvic free fluid. Uterus: Intrauterine noted. US/US gall bladder [id number] IMPRESSION: Suggestive findings of acute cholecystitis including gallbladder sludge, wall thickening, and positive sonographic Rees sign. Dictated By: Remi Alvarenga MD Signed By: Remi Alvarenga MD Signed Date/Time: 07/12/212312 DD/ 01 Discharge Plan Discharge Patient Disposition: Admitted As Inpatient Clinical Impression: Nausea and vomiting, , Cholecystitis Condition: Stable Discharge Diet: Advance as tolerated Discharge Activity: Resume usual activity Coding Level of Care Code ED Contract Law Specialist for Chg Fwd Exam Comprehensive
[2021-07-12 19:06] LABS: Basophils # 0.1 10^3/uL (0.0-0.1); Basophils % 0.5 %; Eosinophils # 0.5 10^3/uL (0.0-0.8); Eosinophils % 4.2 %; Hematocrit 43.1 % (37.0-47.0); Hemoglobin 15.2 g/dL (11.5-15.3); Lymphocytes # 1.7 10^3/uL (0.8-4.8); Lymphocytes % 12.9 %; Mean Corpuscular HGB Conc 35.3 g/dL (30.0-36.0); Mean Corpuscular Hemoglobin 29.8 pg (28.0-34.0); Mean Corpuscular Volume 84.5 fl (81-99); Mean Platelet Volume 10.2 fL (7.4-10.4); Monocytes # 0.6 10^3/uL (0.2-0.9); Monocytes % 4.9 %; Neutrophils # 10.01 10^3/uL (1.8-7.7); Neutrophils % 77.1 %; Nucleated Red Blood Cells % 0 %; Platelet Count 346 10^3/cmm (130-400); Red Cell Distribution Width 11.6 % (12.1-15.1)
[2021-07-12 19:16] LABS: HCG, Serum Qual Positive (Negative)
[2021-07-12 19:24] LABS: Alanine Aminotransferase 129 U/L (0-33); Albumin Level 4.3 g/dL (3.5-5.2); Alkaline Phosphatase 116 IU/L (35-105); Aspartate Amino Transferase 54 U/L (0-32); Blood Urea Nitrogen 7 mg/dL (6-20); Calcium 9.3 mg/dL (8.5-10.5); Carbon Dioxide 22 mmol/L (22-29); Chloride 95 mmol/L (98-107); Globulin 3.3 g/dL (1.3-4.6); Glucose 83 mg/dL (65-115); Lipase 57 U/L (13-60); Osmolality Calculated 273 mOsm/kg (285-295); Sodium 133 mmol/L (136-145); Total Bilirubin 0.6 mg/dL (0.15-1.2); Total Protein 7.6 g/dL (6.6-8.7)
--- NOTE | 2021-07-12 20:19 | USR_ITS ---
PROCEDURE INFORMATION: Exam: US First Trimester, Transabdominal and US Duplex Artery or Vein, Ovaries, Limited Exam date and time: 07/12/2021 8:19 PM Age: 30 years old Clinical indication: Lmp or gestational age (in weeks): Nausea and vomiting x 20 days with epigastric pain, radiating to the back. No vaginal bleeding. ; complicated by abdominal or pelvic pain; Gestational age or lmp: 9w 4d by lmp; ; Additional info: Eval preg TECHNIQUE: Imaging protocol: Real-time transabdominal obstetrical ultrasound of the maternal pelvis and a first trimester , less than 14 weeks 0 days, with image documentation. Real-time duplex ultrasound scan of the arterial or venous flow of the ovaries with B-mode, color Doppler flow and spectral waveform analysis, limited Duplex. COMPARISON: US OB <= 14 weeks fetus [id number] 06/27/2021 11:24 AM FINDINGS: Gestation: Single live intrauterine gestation. Morphologically normal gestational sac. presentation: Variable presentation. Embryonic/ heart rate: 160 bpm Extra-embryonic membranes/Placenta: No subchorionic hematoma. Amniotic fluid: Amniotic fluid/chorionic fluid is normal for gestational age. BIOMETRY: Gestational age (AUA): 9 weeks 5 days by crown-rump length Estimated due date (AUA): 02/09/2022 by ultrasound (compares with 02/10/2022 by LMP) MATERNAL: Uterus: Uterine contours are normal. Cervix: The cervix is unremarkable. Right ovary/adnexa: The right ovary is morphologically normal. There is normal blood flow in the right ovary. The right ovary measures 4.2 x 4.0 x 1.8 cm. Left ovary/adnexa: Left ovarian corpus luteum noted. The left ovary is morphologically normal. There is normal blood flow in the left ovary. The left ovary measures 3.9 x 2.9 x 2.4 cm. Intraperitoneal space: No intraperitoneal free fluid. US/US OB <=14 wk fetus w transvag IMPRESSION: Single live intrauterine . No apparent complications.
[2021-07-12 20:52] LABS: Magnesium 1.9 mg/dL (1.7-2.3)
[2021-07-12] MEDS: sodium chloride 0.9% 1,000 ML 999 ML IV (21:02)
--- NOTE | 2021-07-12 21:02 | USR_ITS ---
PROCEDURE INFORMATION: Exam: US Abdomen; Limited Exam date and time: 07/12/2021 9:02 PM Age: 30 years old Clinical indication: Nausea and vomiting and other: 9w5d ; Other: Epigastric pain which radiates to the back x 20 days; Patient HX: Was seen in this er on the 22 of June for the same symptoms. Nausea and vomiting with epigastric pain while in early 1st trimester. ; Additional info: Ruq abd pain TECHNIQUE: Imaging protocol: US abdomen. Real time ultrasound with image documentation. Limited exam focused on the region of clinical interest. COMPARISON: US OB <=14 wk fetus w transvag 07/12/2021 9:24 PM FINDINGS: Liver: The liver is unremarkable. Gallbladder: Sonographic Rees sign is positive. There is echogenic debris without shadowing in the gallbladder lumen. The gallbladder wall is mildly diffusely thickened. There is no pericholecystic fluid. Gallbladder lumen is mildly distended. Common bile duct: The common bile duct is nondilated measuring 5 mm Pancreas: The visible portion of the pancreas is unremarkable. The distal body and tail is obscured. Right kidney: The right kidney is unremarkable. Appendix: The yarding supervisor reports the presence of a normal appendix. 2 images are provided which suggest but do not confirm this finding. Aorta: The abdominal aorta is unremarkable. Portal venous: Portal vein is patent. Hepatopetal flow is demonstrated. Inferior vena cava: The IVC is unremarkable. Intraperitoneal space: No pelvic free fluid. Uterus: Intrauterine noted. US/US gall bladder [id number] IMPRESSION: Suggestive findings of acute cholecystitis including gallbladder sludge, wall thickening, and positive sonographic Rees sign.
[2021-07-12] MEDS: famotidine 20 mg/2 mL INJ IVP (21:11)
--- NOTE | 2021-07-12 21:17 | ED_ITS ---
HPI - General Adult General: Chief complaint: Nausea/Vomiting/Diarrhea Stated complaint: THROWING UP/FATIGUE Time Seen by Provider: 07/12/21 20:19 Source: family Mode of arrival: ambulatory Limitations: language barrier History of Present Illness: HPI narrative: Patient is a G2, P1 at 9 weeks 4 days presenting to the emergency room for complaints of diffuse abdominal pain, decreased p.o. intake, nausea and vomiting x 3 weeks. Patient tells me that she was seen on 06/27/2021. Patient was prescribed Zofran for similar symptoms nausea and vomiting. Since then, patient continues to persist decreased p.o. intake of nausea and vomiting. In additoin, patient has complaints of upper abdominal pain. Patient has any cough, runny nose, sore throat, diarrhea, melena hematochezia. Patient has no urinary symptoms. Onset: 3 weeks ago Duration:3 weeks Location:home Severity:moderate Review of Systems Narrative: Constitutional: No fever, no chills. HEENT: No vision changes CV: No chest pain, no palpitations PULM: no cough, no dyspnea. GI: +Upper abdominal pain, +N/+V/-D. : No dysuria MSKEL: No muscle pain SKIN: No new rashes, no lesions. NEURO: No headache, no focal weakness. HEME: No visible bruises PSYCH: Normal mood PFSH ED PFSH: Surgical History (Updated 07/13/21 @ 09:10 by Pedro Luis Fierro MD) Status post laparoscopic cholecystectomy (07/13/21) Physical Exam Narrative: EXAM NARRATIVE: Head: Atraumatic Eyes: PERRL, conjunctiva without injection ENT: Mucous membrane moist NECK: Supple, ROM intact LUNGS: LCTAB, no crackles/rhonchi CV: RRR ABDOMEN: Soft, +mild epigastric and upper abdominal TTP. NO guarding rebound, guarding, rigidity. No CVA tenderness to percussion. Neg Rees/Neg McBurney's point tenderness, no suprabupic tenderness to palpation. EXTREMITY: Normal ROM SKIN: No rash or erythema NEURO: Awake and alert, no focal motor deficits PSYCH: Normal mood and affect Course Vital Signs: Vital signs: Vital Signs Temperature 98.5 F 07/14/21 15:29 Pulse Rate 95 07/14/21 15:29 Respiratory Rate 24 H 07/14/21 15:29 Blood Pressure 103/69 07/14/21 15:29 Pulse Oximetry 96 07/14/21 15:29 MDM - General Adult MDM Narrative: Medical decision making narrative: Patient is a 30-year-old female at 9 weeks and 4 days presenting to emergency room for evaluation of persistent nausea/vomiting and right upper quadrant abdominal pain x3 weeks. On exam, patient is afebrile with mild tenderness palpation the abdomen. No Rees sign. Patient is noted to have white count of 13.0 similar to prior presentation on 06/27. Patient sodium of 133, potassium of 4. Present time, for ultrasound confirmed IUP. Right upper quadrant ultrasound did not show any signs of gallbladder pathology. Patient received Zofran in the emergency room has been to tolerate p.o. without any difficulty. At the present time, given symptoms x3 weeks and similar leukocytosis, this is unlikely to be acute intra-abdominal pathology. No suspicion for other acute intra-abdominal pathology including SBO, biliary pathology, diverticulitis, or other emergent condition requiring surgery. Considered appendicitis however unlikely at this time given lack of signs and sx's to suggest appendicitis as etiology. Pt counseled that appendicitis may later develop and given appendicitis precautions and instructed to return if any development of RLQ tenderness, worsening or continued abdominal pain, or any fevers, chills, nausea, vomiting, or any other concerning signs or symptoms. Rx yeni, Diclegis, Zofran, as needed nausea & vomiting, tylenol PRN pain I have given patient follow up with our supervisor case loading to be seen by our outpatient OB for close followup for nausea/vomiting. Patient aware of a call from our supervisor case loading to schedule for appointment(s) and verbalizes und erstanding of the importance of following up. Disposition: Discharge. Patient counseled regarding diagnostic impression, treatment plan. Patient given ED strict return precautions to return for cont inuation, worsening, or development of new symptoms. Instructed to f/u w/ OB provider regarding symptoms today. Patient verbalized understanding. Lab Data: Labs: Lab Results 07/12/21 07/12/21 07/12/21 18:46 18:46 18:46 WBC 13.0 10^3/uL H 10 ^3/uL (4.0-10.0) RBC 5.10 10^6/uL 10^6 /uL (4.1-5.3) Hgb 15.2 g/dL g/dL (11.5-15.3) Hct 43.1 % % (37.0-47.0) MCV 84.5 fl fl (81-99) MCH 29.8 pg pg (28.0-34.0) MCHC 35.3 g/dL g/dL (30.0-36.0) RDW 11.6 % L % (12.1-15.1) Plt Count 346 10^3/cmm 10^3 /cmm (130-400) MPV 10.2 fL fL (7.4-10.4) Neut % (Auto) 77.1 % % Lymph % (Auto) 12.9 % % [place] % (Auto) 4.9 % % Eos % (Auto) 4.2 % % Baso % (Auto) 0.5 % % Neut # (Auto) 10.01 10^3/uL H 1 0^3/uL (1.8-7.7) Lymph # (Auto) 1.7 10^3/uL 10^3/ uL (0.8-4.8) [place] # (Auto) 0.6 10^3/uL 10^3/ uL (0.2-0.9) Eos # (Auto) 0.5 10^3/uL 10^3/ uL (0.0-0.8) Baso # (Auto) 0.1 10^3/uL 10^3/ uL (0.0-0.1) Nucleated RBC % (a uto) 0 % % Nucleated RBCs # 0.0 /100WBC /100W BC Sodium 133 mmol/L L mmol /L (136-145) Potassium 4.0 mmol/L mmol/L (3.5-5.1) Chloride 95 mmol/L L mmol/ L (98-107) Carbon Dioxide 22 mmol/L mmol/L (22-29) Anion Gap 20.0 H (5-19) BUN 7 mg/dL mg/dL (6-20) Creatinine 0.4 mg/dL L mg/dL (0.5-0.9) GFR Calculation 230.0 mL/min H mL /min (90-130) Glucose 83 mg/dL mg/dL (65-115) Calculated Osmolal ity 273 mOsm/kg L mOs m/kg (285-295) Calcium 9.3 mg/dL mg/dL (8.5-10.5) Magnesium Total Bilirubin 0.6 mg/dL mg/dL (0.15-1.2) AST 54 U/L H U/L (0-32) ALT 129 U/L H U/L (0-33) Alkaline Phosphata se 116 IU/L H IU/L (35-105) Total Protein 7.6 g/dL g/dL (6.6-8.7) Albumin 4.3 g/dL g/dL (3.5-5.2) Globulin 3.3 g/dL g/dL (1.3-4.6) Lipase 57 U/L U/L (13-60) HCG, Qual Positive H (Negative) Ser , Vonnie i-Qnt Urine Color Urine Appearance Urine pH Ur Specific Gravit y Urine Protein Urine Glucose (UA) Urine Ketones Urine Blood Urine Nitrate Urine Bilirubin Urine Urobilinogen Ur Leukocyte Daisha ase Urine RBC Urine WBC Ur Squamous Epith Cells Amorphous Sediment Urine Bacteria Coronavirus 229E ( PCR) SARS-CoV-2 (PCR) 07/12/21 07/12/21 07/12/21 18:46 21:05 23:06 WBC RBC Hgb Hct MCV MCH MCHC RDW Plt Count MPV Neut % (Auto) Lymph % (Auto) [place] % (Auto) Eos % (Auto) Baso % (Auto) Neut # (Auto) Lymph # (Auto) [place] # (Auto) Eos # (Auto) Baso # (Auto) Nucleated RBC % (a uto) Nucleated RBCs # Sodium Potassium Chloride Carbon Dioxide Anion Gap BUN Creatinine GFR Calculation Glucose Calculated Osmolal ity Calcium Magnesium 1.9 mg/dL mg/dL (1.7-2.3) Total Bilirubin AST ALT Alkaline Phosphata se Total Protein Albumin Globulin Lipase HCG, Qual Ser , Vonnie i-Qnt 572245.00 mIU/mL mIU/mL Urine Color Yellow (Yellow) Urine Appearance Clear (CLEAR) Urine pH 6 (5-7) Ur Specific Gravit y 1.015 (1.005-1.030) Urine Protein Neg (Negative) Urine Glucose (UA) Norm (Normal) Urine Ketones 2+ H (Negative) Urine Blood Neg (Negative) Urine Nitrate Negative (Negative) Urine Bilirubin Neg (Negative) Urine Urobilinogen Neg mg/dL mg/dL (Negative) Ur Leukocyte Daisha ase 2+ H (Negative) Urine RBC 0-4 /hpf H /hpf (0-2) Urine WBC 10-15 /hpf H /hpf (0-5) Ur Squamous Epith Cells 10-15 /hpf H /hpf (0-5) Amorphous Sediment Not Reportable Urine Bacteria Trace /hpf /hpf (NONE) Coronavirus 229E ( PCR) Not detected (NOT DETECT) SARS-CoV-2 (PCR) Not detected (NOT DETECT) Discharge Plan Discharge Patient Disposition: Admitted As Inpatient Admit Provider: Pedro Luis Fierro Clinical Impression: Nausea and vomiting, , Cholecystitis Condition: Stable Discharge Diet: Advance as tolerated Discharge Activity: Resume usual activity Coding Level of Care Code ED Manager Hospitality for Nelson Dave
[2021-07-12 22:46] VITALS: BP 113/71
[2021-07-12] MEDS: acetaminophen 500 mg Tablet PO (22:50)
[2021-07-12 22:54] LABS: Adenovirus Not Detected (NOT DETECT); Chlamydia Pneumoniae Not Detected (NOT DETECT); Coronavirus 229E,HKU1,NL63,OC4 Not Detected (NOT DETECT); Human Metapneumovirus Not Detected (NOT DETECT); Human Rhinovirus/Enterovirus Not Detected (NOT DETECT); Influenza A Not Detected (NOT DETECT); Influenza A H1 Not Detected (NOT DETECT); Influenza A H1-2009 Not Detected (NOT DETECT); Influenza A H3 Not Detected (NOT DETECT); Influenza B Not Detected (NOT DETECT); Mycoplasma Pneumoniae Not Detected (NOT DETECT); Parainfluenza Virus Type 1 Not Detected (NOT DETECT); Parainfluenza Virus Type 2 Not Detected (NOT DETECT); Parainfluenza Virus Type 3 Not Detected (NOT DETECT); Parainfluenza Virus Type 4 Not Detected (NOT DETECT); Respiratory Syncytial Virus A Not Detected (NOT DETECT); Respiratory Syncytial Virus B Not Detected (NOT DETECT); SARS-COV-2 Not Detected (NOT DETECT)
[2021-07-12 23:33] LABS: Urine Appearance Clear (CLEAR); Urine Color Yellow (Yellow); pH Urine 6 (5-7)
[2021-07-12 23:34] LABS: Add Urine Culture? No; Add Urine Microscopic? YES; Bacteria Urine TRACE /hpf; Bilirubin Urine Neg (Negative); Blood Urine Neg (Negative); Glucose Urine UA Norm (Normal); Ketones Urine 2+ (Negative); Leukocyte Esterase Urine 2+ (Negative); Nitrate Urine Negative (Negative); Protein Urine Neg (Negative); RBC Urine 0-4 /hpf (0-2); Specific Gravity, Urine 1.015 (1.005-1.030); Urobilinogen Urine Neg (Negative)
[2021-07-12 23:37] VITALS: BP 136/85; RESP 21
[2021-07-13] VITALS (25 sets, daily range): BP systolic 92–129; BP diastolic 61–89; PULSE 80–105; RESP 16–25; TEMP 36.3–37.5; O2SAT 93–100; BMI 23.3
[2021-07-13] MEDS: morphine 4 mg/mL SDV 1 mL IVP (00:44)
[2021-07-13] MEDS: ampicillin-sulbactam 3 GM in sodium chloride 0.9% (plus) 50 ML IV ×2 (00:50→08:07)
[2021-07-13] MEDS: sodium chloride 0.9% 1,000 ML 100 ML IV ×3 (02:08→20:32)
--- NOTE | 2021-07-13 04:16 | PC.NURSE ---
0200Pt to unit from ER via stretcher. Spouse at bedside. Pt speaks very little Romansh. Spouse translates well. [place] are [place]. Pt reports upper abd pain under control. Oriented to room and POC. voices understanding. Warm blanket given to pt. Spouse given sleep chair and blanket. advised NPO status.
--- NOTE | 2021-07-13 04:18 | PC.NURSE ---
0235 Pt vomits small amount green bile, then dry heaves. Called to [facility] for med order. Note new order.
--- NOTE | 2021-07-13 04:19 | PC.NURSE ---
0250 Pt sleeping. Did not wake her to give zofran order.
--- NOTE | 2021-07-13 04:21 | PC.NURSE ---
0400 pt sleeping in bed. no additional vomiting episodes since the 1x after unit arrival. Spouse sleeping at bedside.
[2021-07-13 06:30] LABS: Basophils # 0.1 10^3/uL (0.0-0.1); Basophils % 0.5 %; Eosinophils # 0.6 10^3/uL (0.0-0.8); Eosinophils % 5.5 %; Hemoglobin 12.7 g/dL (11.5-15.3); Lymphocytes % 17.3 %; Mean Corpuscular HGB Conc 35.3 g/dL (30.0-36.0); Mean Corpuscular Hemoglobin 30.4 pg (28.0-34.0); Mean Corpuscular Volume 86.1 fl (81-99); Mean Platelet Volume 10.4 fL (7.4-10.4); Monocytes # 0.6 10^3/uL (0.2-0.9); Monocytes % 5.5 %; Neutrophils # 7.99 10^3/uL (1.8-7.7); Neutrophils % 70.9 %; Nucleated Red Blood Cells % 0 %; Platelet Count 258 10^3/cmm (130-400); Red Blood Count 4.18 10^6/uL (4.1-5.3); Red Cell Distribution Width 11.8 % (12.1-15.1); White Blood Count 11.3 10^3/uL (4.0-10.0)
[2021-07-13 06:44] LABS: Alanine Aminotransferase 89 U/L (0-33); Albumin Level 3.5 g/dL (3.5-5.2); Alkaline Phosphatase 86 IU/L (35-105); Anion Gap 14.7 (5-19); Aspartate Amino Transferase 31 U/L (0-32); Blood Urea Nitrogen 6 mg/dL (6-20); Calcium 8.1 mg/dL (8.5-10.5); Carbon Dioxide 22 mmol/L (22-29); Chloride 103 mmol/L (98-107); Globulin 2.7 g/dL (1.3-4.6); Glomerular Filtration Rate 320.5 mL/min (90-130); Glucose 71 mg/dL (65-115); Osmolality Calculated 278 mOsm/kg (285-295); Potassium 3.7 mmol/L (3.5-5.1); Sodium 136 mmol/L (136-145); Total Bilirubin 0.6 mg/dL (0.15-1.2); Total Protein 6.2 g/dL (6.6-8.7)
--- NOTE | 2021-07-13 07:11 | PM.CONSULT ---
Providers/Reason For Consult Consulting Physician/Specialty*: Obstetric care Reason for Consult*: First trimester Attending Physician: Pedro Luis Fierro MD History of Present Illness History of Present Illness Laura Thomas is a 30 year old female who is 9 weeks 5 days estimated gestational age based on LMP and ultrasound who presented to the emergency room with complaints of abdominal pain, diarrhea, nausea and vomiting. She denies any headache, fever, chills, chest pain or shortness of breath. She has not had any previous surgeries. At the part of her evaluation an ultrasound was performed which demonstrated a gallbladder with thickened barber with some gallbladder sludge and other findings consistent with cholecystitis. Because of her acute symptoms, as well as the findings on the ultrasound, the patient was admitted to the hospital for further evaluation by Dr. Fierro, and to consider potential cholecystectomy. Review of Systems General: Reports: 10 or more systems reviewed and unremarkable except in HPI and below Const: Reports: fatigue; Denies: fever(s) Eyes: Denies: change in vision Card: Denies: chest pain Musc: Reports: back pain Kartik/Lymph: Denies: easy bruising Meds/Allergies Home Medications and Allergies Home Medications Medication Instructions Recorded Confirmed Last Taken Type ondansetron 4 mg PO Q6H PRN #14 tab 06/28/21 Unknown Rx doxylamine-pyridoxine (vit B6) 1 tab PO DAILY PRN 20 Days #20 tab 07/12/21 Unknown Rx [Diclegis] famotidine [Pepcid] 20 mg PO BID PRN 10 Days #20 tab 07/12/21 Unknown Rx yeni (Zingiber officinalis) 250 mg PO QID PRN 5 Days #20 cap 07/12/21 Unknown Rx [yeni extract] ondansetron HCl [Zofran] 4 mg PO TID PRN 4 Days #12 tab 07/12/21 Unknown Rx Allergies Allergy/AdvReac Type Severity Reaction Status Date / Time metoclopramide Allergy ALGY-Rash Verified 07/13/21 00:55 Current Medications Current Medications Generic Name Dose Route Start Last Admin Trade Name Freq PRN Reason Stop Dose Admin Sodium Chloride 1,000 mls @ 100 mls/hr 07/13/21 01:56 07/13/21 02:08 Sodium Chloride 0.9% IV 100 mls/hr .Q10H MIGUEL Administration PFSH Acute Female Reproductive History: Date of last menstrual period: 04/13/21 Vitals/I&O/Wt Last Vital Signs Temp 98.6 F 07/13/21 04:00 Pulse 85 07/13/21 04:00 Resp 18 07/13/21 04:00 BP 92/64 07/13/21 04:00 Pulse Ox 97 07/13/21 04:00 07/12/21 07/13/21 07/13/21 22:59 06:59 14:59 Intake Total 1000 / 1000 50 / 1050 Balance 1000 / 1000 50 / 1050 Weight last 48 hrs Weight 145 lb Weight 145 lb Physical Exam Const: COMMON NORMALS: patient oriented x3 and alert HENMT: COMMON NORMALS: moist oral mucous membranes HEAD & SCALP: normal to inspection Chest: COMMONS NORMALS: normal inspection of the chest Resp: COMMON NORMALS: clear to auscultation bilaterally AUSCULTATION: clear to auscultation bilaterally Cardio: COMMON NORMALS: regular rate and regular rhythm RATE: regular rate RHYTHM: regular rhythm GI: COMMON NORMALS: Soft to palpation INSPECTION: Yes normal to inspection PALPATION: Yes Soft to palpation and Yes Tenderness to palpation present (GI) Extremity: COMMON NORMALS: normal to inspection GENERAL: Yes edema (Trace) Neuro: COMMON NORMALS: patient oriented x3, moves all extremities and no sensory deficits noted SENSORIUM/ORIENTATION: Yes alert Psych: COMMON NORMALS: mental status grossly normal Skin: COMMON NORMALS: no rashes or lesions noted GENERAL SKIN EXAM: no rashes or lesions noted A&P Assessment and plan (1) Cholecystitis: Status: Acute (2) First trimester : At this time the patient needs to be treated as appropriate for cholecystitis. I have discussed the case with Dr. Fierro and I am comfortable with proceeding with surgery if he feels it appropriate. Status: Acute (3) Nausea and vomiting: Status: Acute Consult Attestations Medical Necessity Statement: The patient will be discharged home when Dr. Fierro feels it is appropriate Coding Level of Care Code Acute [facility] Fwd Diagnoses Cholecystitis K81.9 First trimester Z34.91 Nausea and vomiting R11.2
--- NOTE | 2021-07-13 07:42 | PM.HP ---
Providers/Chief Complaint Admitting Physician: Pedro Luis Fierro MD Chief Complaint: THROWING UP/FATIGUE History of Present Illness Laura Thomas is a 30 year old female who is 9 weeks and presented to the ER with persistent nausea and vomiting. Patient had been dealing with mild nausea and vomiting since the start of her but yesterday her symptoms worsened and she also had abdominal pain. Abdominal pain was localized to the upper abdomen, did not radiate, no aggravating relieving factors. Denies any hematemesis or melena. She has had 1 prior which she miscarried. She had ultrasound which showed gallbladder wall thickening, gallstones and gallbladder distention and was admitted to the hospital for IV antibiotics. Review of Systems General: Reports: 10 or more systems reviewed and unremarkable except in HPI and below Medications/Allergies Home Medications Medication Instructions Recorded Confirmed Last Taken Type ondansetron 4 mg PO Q6H PRN #14 tab 06/28/21 Unknown Rx doxylamine-pyridoxine (vit B6) 1 tab PO DAILY PRN 20 Days #20 tab 07/12/21 Unknown Rx [Diclegis] famotidine [Pepcid] 20 mg PO BID PRN 10 Days #20 tab 07/12/21 Unknown Rx yeni (Zingiber officinalis) 250 mg PO QID PRN 5 Days #20 cap 07/12/21 Unknown Rx [yeni extract] ondansetron HCl [Zofran] 4 mg PO TID PRN 4 Days #12 tab 07/12/21 Unknown Rx Allergies Allergy/AdvReac Type Severity Reaction Status Date / Time metoclopramide Allergy ALGY-Rash Verified 07/13/21 00:55 PFSH Acute Female Reproductive History: Date of last menstrual period: 04/13/21 Vitals/I&O/Wt Last Vital Signs Temp 98 F 07/13/21 07:24 Pulse 93 07/13/21 07:24 Resp 16 07/13/21 07:24 BP 115/81 07/13/21 07:24 Pulse Ox 93 07/13/21 07:24 07/12/21 07/13/21 07/13/21 22:59 06:59 14:59 Intake Total 1000 / 1050 50 / 1050 Balance 1000 / 1050 50 / 1050 Weight last 48 hrs Weight 145 lb Weight 145 lb Physical Exam Narrative: EXAM NARRATIVE: HEENT: Normocephalic Eye: Sclera /conjunctiva normal Respiratory and chest: Bilateral clear breath sounds on auscultation Cardiovascular: Normal S1 and S2 heart sounds Abdomen: Soft to palpation, tender right upper quadrant, no guarding or rigidity Neurological: Oriented to place person and time Skin: Intact, no lesions appreciated on gross exam Data : 07/13/21 05:40 07/13/21 05:40 A&P Assessment and plan (1) Cholecystitis: 30-year-old female who is 8 weeks and presents with abdominal pain, nausea and vomiting with ultrasound showing acute calculus cholecystitis. She also is noted to have mild leukocytosis and normal LFTs. Discussed the findings with the patient and her . Discussed the risk of miscarriage as well as the possibility of recurrent attacks during her and therefore they have decided to proceed with surgery. Plan follow-up laparoscopic possible open cholecystectomy Procedure, risks, benefits and alternatives have been discussed with the patient who wishes to proceed with surgery. Status: Acute Attestations Medical Necessity Statement*: Acute calculus cholecystitis Coding Level of Care Code Acute [employer] [facility] Diagnoses Cholecystitis K81.9
--- NOTE | 2021-07-13 07:52 | ANES.PREANE2 ---
Pre-Anesthetic Assessment Pre-Anesthetic Assessment: Height/Weight: Height 1.68 m Weight 65.771 kg Temp Pulse Resp BP Pulse Ox 98 F 93 16 115/81 93 07/13/21 07:24 07/13/21 07:24 07/13/21 07:24 07/13/21 07:24 07/13/21 07:24 Preop Diagnosis: acute cholecystitis Proposed Procedure: Operation Date: 07/13/21 08:00 Proposed Procedures p Laparoscopic Cholecystectomy(Not Applicable) - Pedro Luis Fierro MD Was Beta Rohini taken within 24 hours: N/A Was Clonidine taken within 24 hours: N/A Social: Social History: No alcohol and No tobacco Exam: Pre-Anes Outpt Exam: alert, oriented x 3, clear to auscultation bilaterally and regular rate & rhythm Airway: Submandibular: WNL Cervical ROM: WNL MP: 2 Dentition: Full GI: GI: GERD Comments: Acute willi Anesthetic Plan: ASA status: 2 Anesthesia: General (Mod RSI) Other: 9 weeks Risk of > 500 ml blood loss (7ml/kg in children): No Meds/Allergies Current Medications: Current Medications Generic Name Dose Route Start Last Admin Trade Name Freq PRN Reason Stop Dose Admin Sodium Chloride 1,000 mls @ 100 m ls/hr 07/13/21 01:56 07/13/21 02:08 Sodium Chloride 0.9% IV 100 mls/hr .Q10H MIGUEL Administration PFSH Anesthesia Female Reproductive History: Date of last menstrual period: 04/13/21 Data Anesthesia CBC & Chem 7: 07/13/21 05:40 07/13/21 05:40 Other Labs: Laboratory Results - last 48 hr 07/12/21 07/12/21 07/12/21 18:46 18:46 18:46 WBC 13.0 H RBC 5.10 Hgb 15.2 Hct 43.1 MCV 84.5 MCH 29.8 MCHC 35.3 RDW 11.6 L Plt Count 346 MPV 10.2 Neut % (Auto) 77.1 Lymph % (Auto) 12.9 [place] % (Auto) 4.9 Eos % (Auto) 4.2 Baso % (Auto) 0.5 Neut # (Auto) 10.01 H Lymph # (Auto) 1.7 [place] # (Auto) 0.6 Eos # (Auto) 0.5 Baso # (Auto) 0.1 Nucleated RBC % (auto) 0 Nucleated RBCs # 0.0 Sodium 133 L Potassium 4.0 Chloride 95 L Carbon Dioxide 22 Anion Gap 20.0 H BUN 7 Creatinine 0.4 L GFR Calculation 230.0 H Glucose 83 Calculated Osmolality 273 L Calcium 9.3 Magnesium Total Bilirubin 0.6 AST 54 H ALT 129 H Alkaline Phosphatase 116 H Total Protein 7.6 Albumin 4.3 Globulin 3.3 Lipase 57 HCG, Qual Positive H Ser , Semi-Qnt Urine Color Urine Appearance Urine pH Ur Specific [place] Urine Protein Urine Glucose (UA) Urine Ketones Urine Blood Urine Nitrate Urine Bilirubin Urine Urobilinogen Ur Leukocyte Esterase Urine RBC Urine WBC Ur Squamous Epith Cells Amorphous Sediment Urine Bacteria Coronavirus 229E (PCR) SARS-CoV-2 (PCR) 07/12/21 07/12/21 07/12/21 18:46 21:05 23:06 WBC RBC Hgb Hct MCV MCH MCHC RDW Plt Count MPV Neut % (Auto) Lymph % (Auto) [place] % (Auto) Eos % (Auto) Baso % (Auto) Neut # (Auto) Lymph # (Auto) [place] # (Auto) Eos # (Auto) Baso # (Auto) Nucleated RBC % (auto) Nucleated RBCs # Sodium Potassium Chloride Carbon Dioxide Anion Gap BUN Creatinine GFR Calculation Glucose Calculated Osmolality Calcium Magnesium 1.9 Total Bilirubin AST ALT Alkaline Phosphatase Total Protein Albumin Globulin Lipase HCG, Qual Ser , Semi-Qnt [id number] Urine Color Yellow Urine Appearance Clear Urine pH 6 Ur Specific [place] 1.015 Urine Protein Neg Urine Glucose (UA) Norm Urine Ketones 2+ H Urine Blood Neg Urine Nitrate Negative Urine Bilirubin Neg Urine Urobilinogen Neg Ur Leukocyte Esterase 2+ H Urine RBC 0-4 H Urine WBC 10-15 H Ur Squamous Epith Cells 10-15 H Amorphous Sediment Not Reportable Urine Bacteria Trace Coronavirus 229E (PCR) Not detected SARS-CoV-2 (PCR) Not detected 07/13/21 07/13/21 05:40 05:40 WBC 11.3 H RBC 4.18 Hgb 12.7 Hct 36.0 L MCV 86.1 MCH 30.4 MCHC 35.3 RDW 11.8 L Plt Count 258 MPV 10.4 Neut % (Auto) 70.9 Lymph % (Auto) 17.3 [place] % (Auto) 5.5 Eos % (Auto) 5.5 Baso % (Auto) 0.5 Neut # (Auto) 7.99 H Lymph # (Auto) 2.0 [place] # (Auto) 0.6 Eos # (Auto) 0.6 Baso # (Auto) 0.1 Nucleated RBC % (auto) 0 Nucleated RBCs # 0.0 Sodium 136 Potassium 3.7 Chloride 103 Carbon Dioxide 22 Anion Gap 14.7 BUN 6 Creatinine 0.3 L GFR Calculation 320.5 H Glucose 71 Calculated Osmolality 278 L Calcium 8.1 L Magnesium Total Bilirubin 0.6 AST 31 ALT 89 H Alkaline Phosphatase 86 Total Protein 6.2 L Albumin 3.5 Globulin 2.7 Lipase HCG, Qual Ser , Semi-Qnt Urine Color Urine Appearance Urine pH Ur Specific [place] Urine Protein Urine Glucose (UA) Urine Ketones Urine Blood Urine Nitrate Urine Bilirubin Urine Urobilinogen Ur Leukocyte Esterase Urine RBC Urine WBC Ur Squamous Epith Cells Amorphous Sediment Urine Bacteria Coronavirus 229E (PCR) SARS-CoV-2 (PCR) Cardiac Studies: No Data to Display
[2021-07-13] MEDS: sodium chloride 0.9% 1,000 ML 30 ML IV (08:00)
--- NOTE | 2021-07-13 08:02 | SUR.PREOP ---
OB nurse here to listen to heart tones, unable to heart tones due to stage in .
--- NOTE | 2021-07-13 09:10 | PM.OP ---
Operative Report Date of procedure: July 13, 2021 Pre-op Diagnosis: Acute calculus cholecystitis Post-op diagnosis: same Procedure Done: Laparoscopic cholecystectomy Specimens removed/disposition: Gallbladder Surgeon: Pedro Luis Fierro Anesthesia: General Condition: stable Disposition: PACU Procedure: The patient was taken to the operating room and was intubated under general anesthesia. After the antibiotic had been administered, the abdomen was prepped and draped in a sterile manner. Using a #15 blade, a 1 centimeter infraumbilical curvilinear incision was made and using an open Priti technique the peritoneal cavity was entered. A 10 millimeter port was placed and 15 millimeters of pneumoperitoneum was created. A 10 millimeter, 30 degrees scope was then introduced. Three 5 millimeter ports were placed in the epigastric, midclavicular and the anterior axillary line two fingerbreadths below the costal margin on the right side under the direct visualization. Ratcheted forceps were introduced into the lateral most port and was used to retract the fundus of the gallbladder cephalad and using forceps the infundibulum of the gallbladder was retracted laterally. Using L-hook cautery the peritoneum overlying the Calot's triangle was opened medially and laterally until the cystic duct and the cystic artery were skeletonized. Dissection was carried along the body of the gallbladder and after ensuring critical view of safety, 4 clips applied on the cystic duct and 3 clips applied on the cystic artery and cut leaving, 3 clips on the remaining portion of the duct and 2 clips on the remaining portion of the artery. The rest of the gallbladder was dissected off the liver using L-hook cautery. There was no bleeding or bile leaking noted from the gallbladder fossa and the clips appeared to be in place. An EndoCatch bag was introduced to remove the gallbladder. All the ports were removed under direct visualization and there was no bleeding noted from the port sites. The fascia of the umbilicus was closed using [id number] Vicryl sutures and the subcutaneous tissue was approximated using 3-0 Vicryl sutures. The skin at all four ports were closed using 4-0 Monocryl and Dermabond. A total of 10 millimeters of 0.5% Marcaine was infiltrated around the port sites. The patient was stable throughout the procedure.
--- NOTE | 2021-07-13 09:12 | PM.DCS ---
Discharge Providers Date of Admission: 07/13/21 00:04 Date of Discharge: 07/14/2021 Attending Provider at Admission: Pedro Luis Fierro MD Attending Provider at Discharge: Pedro Luis Fierro MD Reason for Visit Reason for Visit: THROWING UP/FATIGUE Hospital Course Hospital Course This is a 30-year-old female who is 9 weeks who presented to the ER last night with complaints of abdominal pain, nausea and vomiting. She has been dealing with some nausea and vomiting throughout her but yesterday her symptoms got progressively worse and she also complained of generalized weakness. An ultrasound in the ER showed acute calculus cholecystitis. Patient was admitted for IV antibiotics overnight and underwent laparoscopic cholecystectomy. An ultrasound in the ER showed viable . Patient stayed for 1 more night for pain control and management of nausea. At the time of discharge patient was tolerating a clear liquid diet ambulating and pain controlled with oral pain medications. Her vital signs are stable. Discharge Data Data Completed and Pending: Completed Studies During Hospitalization Category Date Time Status US OB <=14 wk fet us w transvag Urge nt Ultrasound 07/12/21 20:19 Completed US gall bladder 7 [id number] Urgent Ultrasound 07/12/21 21:02 Completed Pending at discharge Category Date Time Status ES surgery / GI i mages Routine Exams 07/13/21 07:21 Taken Labs from last 24 hours 07/13/21 07/13/21 07/12/21 05:40 05:40 23:06 WBC 11.3 H RBC 4.18 Hgb 12.7 Hct 36.0 L MCV 86.1 MCH 30.4 MCHC 35.3 RDW 11.8 L Plt Count 258 MPV 10.4 Neut % (Auto) 70.9 Lymph % (Auto) 17.3 [place] % (Auto) 5.5 Eos % (Auto) 5.5 Baso % (Auto) 0.5 Neut # (Auto) 7.99 H Lymph # (Auto) 2.0 [place] # (Auto) 0.6 Eos # (Auto) 0.6 Baso # (Auto) 0.1 Nucleated RBC % (a uto) 0 Nucleated RBCs # 0.0 Sodium 136 Potassium 3.7 Chloride 103 Carbon Dioxide 22 Anion Gap 14.7 BUN 6 Creatinine 0.3 L GFR Calculation 320.5 H Glucose 71 Calculated Osmolal ity 278 L Calcium 8.1 L Magnesium Total Bilirubin 0.6 AST 31 ALT 89 H Alkaline Phosphata se 86 Total Protein 6.2 L Albumin 3.5 Globulin 2.7 Lipase HCG, Qual Ser , Vonnie i-Qnt Urine Color Yellow Urine Appearance Clear Urine pH 6 Ur Specific Gravit y 1.015 Urine Protein Neg Urine Glucose (UA) Norm Urine Ketones 2+ H Urine Blood Neg Urine Nitrate Negative Urine Bilirubin Neg Urine Urobilinogen Neg Ur Leukocyte Daisha ase 2+ H Urine RBC 0-4 H Urine WBC 10-15 H Ur Squamous Epith Cells 10-15 H Amorphous Sediment Not Reportable Urine Bacteria Trace Coronavirus 229E ( PCR) SARS-CoV-2 (PCR) 07/12/21 07/12/21 07/12/21 21:05 18:46 18:46 WBC RBC Hgb Hct MCV MCH MCHC RDW Plt Count MPV Neut % (Auto) Lymph % (Auto) [place] % (Auto) Eos % (Auto) Baso % (Auto) Neut # (Auto) Lymph # (Auto) [place] # (Auto) Eos # (Auto) Baso # (Auto) Nucleated RBC % (a uto) Nucleated RBCs # Sodium Potassium Chloride Carbon Dioxide Anion Gap BUN Creatinine GFR Calculation Glucose Calculated Osmolal ity Calcium Magnesium 1.9 Total Bilirubin AST ALT Alkaline Phosphata se Total Protein Albumin Globulin Lipase HCG, Qual Positive H Ser , Vonnie i-Qnt 362620.00 Urine Color Urine Appearance Urine pH Ur Specific Gravit y Urine Protein Urine Glucose (UA) Urine Ketones Urine Blood Urine Nitrate Urine Bilirubin Urine Urobilinogen Ur Leukocyte Daisha ase Urine RBC Urine WBC Ur Squamous Epith Cells Amorphous Sediment Urine Bacteria Coronavirus 229E ( PCR) Not detected SARS-CoV-2 (PCR) Not detected 07/12/21 07/12/21 18:46 18:46 WBC 13.0 H RBC 5.10 Hgb 15.2 Hct 43.1 MCV 84.5 MCH 29.8 MCHC 35.3 RDW 11.6 L Plt Count 346 MPV 10.2 Neut % (Auto) 77.1 Lymph % (Auto) 12.9 [place] % (Auto) 4.9 Eos % (Auto) 4.2 Baso % (Auto) 0.5 Neut # (Auto) 10.01 H Lymph # (Auto) 1.7 [place] # (Auto) 0.6 Eos # (Auto) 0.5 Baso # (Auto) 0.1 Nucleated RBC % (a uto) 0 Nucleated RBCs # 0.0 Sodium 133 L Potassium 4.0 Chloride 95 L Carbon Dioxide 22 Anion Gap 20.0 H BUN 7 Creatinine 0.4 L GFR Calculation 230.0 H Glucose 83 Calculated Osmolal ity 273 L Calcium 9.3 Magnesium Total Bilirubin 0.6 AST 54 H ALT 129 H Alkaline Phosphata se 116 H Total Protein 7.6 Albumin 4.3 Globulin 3.3 Lipase 57 HCG, Qual Ser , Vonnie i-Qnt Urine Color Urine Appearance Urine pH Ur Specific Gravit y Urine Protein Urine Glucose (UA) Urine Ketones Urine Blood Urine Nitrate Urine Bilirubin Urine Urobilinogen Ur Leukocyte Daisha ase Urine RBC Urine WBC Ur Squamous Epith Cells Amorphous Sediment Urine Bacteria Coronavirus 229E ( PCR) SARS-CoV-2 (PCR) Vitals: Last Vital Signs Temp 99.5 F 07/13/21 07:54 Pulse 92 07/13/21 07:54 Resp 18 07/13/21 07:54 BP 108/80 07/13/21 07:54 Pulse Ox 96 07/13/21 07:54 Discharge Plan Discharge Patient Disposition: Home Condition: Stable Prescriptions: New Pepcid 20 mg tablet 20 mg PO BID PRN (Reason: abdominal pain) 10 Days Qty: 20 RF: 0 Diclegis 10-10 mg tablet,delayed release (DR/EC) 1 tab PO DAILY PRN (Reason: nausea and vomiting) 20 Days Qty: 20 RF: 0 yeni extract 250 mg capsule 250 mg PO QID PRN (Reason: nausea and vomiting) 5 Days Qty: 20 RF: 0 hydrocodone-acetaminophen 5-325 mg tablet 1 tab PO Q6H PRN (Reason: pain) Qty: 20 RF: 0 Colace 100 mg capsule 100 mg PO BID Qty: 30 RF: 0 promethazine 12.5 mg tablet 12.5 mg PO TID PRN (Reason: nausea and vomiting) Qty: 20 RF: 0 Discontinued ondansetron 4 mg tablet,disintegrating 4 mg PO Q6H PRN (Reason: nausea and vomiting) Qty: 14 RF: 0 Discharge Orders: Discharge Order (Routine); Ordered 07/13/21 Ordered By: Pedro Luis Fierro Referrals: Pedro Luis Fierro MD [Physician] - 2 weeks ([facility] will call you Friday and schedule an appointment for you to see Dr. Fierro.) Discharge Diet: Advance as tolerated Discharge Activity: Resume usual activity Patient Instructions: Famotidine (By mouth) (Acid Controller, Acid Analytical Engineer, Pepcid AC, Pepcid), Hydrocodone/Acetaminophen (By mouth) (Vicodin, Taft, Lortab), Promethazine (By mouth) (Phenergan, Promacot), Laxative, Stool Softeners (By mouth) (Doculax, Colace, Colace Clear, DSS), Doxylamine/Pyridoxine (By mouth) (Diclegis), Nausea and Vomiting in (ED), Acute Nausea and Vomiting (ED), Abdominal Pain (ED), Laparoscopic Cholecystectomy (DC), Opioid Safety Activity Restrictions/Additional Instructions: Dr. Bowers's office: Our director of casework department will have you follow-up with block feeder in the next few days. You would be expected to have a phone call with our director of casework department who will put you on the schedule. Take your medicine as instructed. Come back to the emergency room if any more nausea vomiting, fevers distress, worsening abdominal pain, or any new concerning complaints. Dr. Fierro Diet Advance to normal diet as tolerated, increase fluid intake as much as possible. Activity Avoid strenuous activity for 2 weeks but continue with daily activities including walking as tolerated. Do not lift more than 10 pounds for 2 weeks Return to work/school You can return to work/ school whenever you feel ready as long as you don?t have to lift more than 10 pounds at work. If you have paperwork that needs to be completed for time off from work, please contact my office Driving You can resume driving once you stop using narcotic pain medications, and transition to non-opioid pain medications like Tylenol, Motrin, Aleve, etc. Medications Pain Take opioid pain medications as prescribed and transition to non-opioid pain medications like Tylenol, Motrin, Aleve etc. over the next few days. The goal of the pain medications is to make the pain bearable and not to be pain free since you recently had surgery. Resume all home medications after surgery as per the medication reconciliation list Nausea Nausea is common after surgery, take nausea medications as needed and stay on a liquid bland diet until nausea resolves. Constipation The combination of surgery, anesthesia and pain medications can result in constipation. Take stool softeners as prescribed. If you do not have a bowel movement in 3 days, please take an [id number] laxative like MiraLAX to address the constipation. Shower It is ok to shower but avoid getting the wound wet for 48 hours after surgery. Do not soak in bathtub, swimming pool or hot tub for 2 weeks. Wound care If glue has been used on your incisions after surgery, the glue on the incision will peel slowly over the next two weeks. The stitches used are dissolvable and will not need to be removed. Do not apply antibiotics or other medications on the incision Problems with the wound: you can develop some redness around the incision from bruising after surgery. If there is increasing pain, redness, tenderness around the incision with or without drainage, please contact my office to rule out an infection. Sometimes the skin at the incisions can separate, resulting in reopening of the wound. Cover the wound with antibiotic cream and sterile dressings and contact my office. Contact physician Call the office at [phone] during office hours or go the Emergency Room ?Fever to 100.4 or greater ?Shaking chills ?Pain that increases over time ?Redness, warmth, or pus draining from incision sites ?Persistent nausea or inability to take in liquids Discharge Attestations Time Spent in Discharge Care*: less than 30 min Quality Metrics Clinical Quality Measures During this hospital stay, did patient experience: None Coding Level of Care Code Acute Nelson MORIN DC note
[2021-07-13] MEDS: fentaNYL 50 mcg/mL INJ 2mL IVP (09:16)
--- NOTE | 2021-07-13 09:18 | SUR.PHASEI ---
patient into pacu at 0906 on room air with sats at 96%. patient wakes to name. patient abd is soft, dermabond in place on 4 sites. brought to bedside.
--- NOTE | 2021-07-13 09:22 | SUR.PHASEI ---
pt reported pain in upper abd, medicated per orders.
--- NOTE | 2021-07-13 09:33 | SUR.PHASEI ---
report given to gurdeep OROZCO. patient resting, still states some pain. abd soft. room air sats at 97%.
--- NOTE | 2021-07-13 09:57 | SUR.PHASEI ---
patient transported back to room on floor, report given to gurdeep gonsalves. patient abd soft, scd in place, dermabond to 4 sites on abd. patient on room air with sats at 98%. present on transport. pt moved to floor bed via slide board, tolerated well. pt positioned in floor bed for comfort with by side. floor rn and tracing lathe set up operator present on transfer to bed.
--- NOTE | 2021-07-13 10:02 | ANE.PACU2 ---
Inpatient post-anesthesia follow up: Airway intact: Yes Vital signs: Temperature 97.3 F Pulse Rate 80 Respiratory Rate 20 Blood Pressure 121/76 Pulse Oximetry 98 Oxygen Delivery Me thod Room Air Oxygen Flow Rate Fraction of Inspir ed Oxygen Hydration adequate: Yes Nausea and vomiting: No Pain level: 2 Mental status: Baseline
[2021-07-13] MEDS: HYDROcodone-acetaminophen 5-325 mg Tablet 1 TAB PO ×3 (10:44→23:45)
--- NOTE | 2021-07-13 13:26 | PC.CHAP ---
Pastoral Care Encounter/Spiritual Assessment Type of Contact [] Declined call or contact centre coach visit [] Patient/Family/Request visit [] Outpatient visit [] Follow-up visit [] Physician referral [] Code/Alert [] Routine visit [] Staff referral [] Actively dying [] Patient sleeping [] Family support [] [] Out of room [] Palliative care [] [] Receiving care in room [] Pre-surgical visit [] Trauma [] Long length of stay [] ICU visit [xx] Other: restricted access Relational/Emotional Strength [] Patient feels connected with others/family/visitors/staff [] Distress [] Loneliness/isolation [] Abandonment Spirituality of Patient [] Person of Charlene [] Attends Catholic of their Charlene [] Believes in Prayer [] Reads Bible or Sikhism materials [] There are Spiritual issues to be addressed Unemployment Insurance Director Interventions [] Prayer [] Active listening [] Non-anxious presence [] Spiritual/emotional support [] Crisis/trauma care [] Spiritual counseling [] Bereavement support [] Provided bereavement packet [] Provided Bible/devotional materials [] Provided toy/stuffed animal, coloring book to patient or family member [] Provided Communion [] Anointing/[place] [] Salvation [] Completed spiritual assessment [] Other: Impact on Illness or Injury [] Angry [] Fearful [] Anxious [] Often cries [] Exhaustion [] Unable to work [] Unable to attend restorationism [] Unable to walk/stand [] Unable to read [] Unable to drive [] Unable to eat/drink [] Unable to sleep [] Unable to be with family [] Patient intubated [] Other: Summary Time spent with patient
[2021-07-13] MEDS: morphine 4 mg/mL SDV 1 mL 2 MG IVP ×2 (13:57→20:02)
[2021-07-14] VITALS: BP 103/67; PULSE 88; RESP 17; TEMP 37.2; O2SAT 98
[2021-07-14 04:00] VITALS: BP 107/67; PULSE 92; RESP 20; TEMP 36.6; O2SAT 98
[2021-07-14 04:03] VITALS: RESP 16
[2021-07-14] MEDS: morphine 4 mg/mL SDV 1 mL 2 MG IVP (04:03)
[2021-07-14 06:00] VITALS: PULSE 90
[2021-07-14] MEDS: sodium chloride 0.9% 1,000 ML 100 ML IV (06:26)
[2021-07-14] MEDS: HYDROcodone-acetaminophen 5-325 mg Tablet 1 TAB PO ×2 (07:56→14:22)
[2021-07-14 08:00] VITALS: BP 103/69; PULSE 95; RESP 24; TEMP 36.9; O2SAT 96
--- NOTE | 2021-07-14 13:54 | PM.PN ---
Subjective Subjective: Interval history: Patient doing well, pain is reasonably well controlled, no nausea or vomiting, getting ready to go home today Vitals/I&O/Wt Last Vital Signs Temp 98.5 F 07/14/21 08:00 Pulse 95 07/14/21 08:00 Resp 24 H 07/14/21 08:00 BP 103/69 07/14/21 08:00 Pulse Ox 96 07/14/21 08:00 07/13/21 07/14/21 07/14/21 22:59 06:59 14:59 Intake Total 1496.667 / 4036.667 1190 / 4036.667 Output Total 600 / 600 Balance 896.667 / 3436.667 1190 / 3436.667 Weight last 48 hrs Weight 151 lb 4.8 oz Weight 145 lb Weight 145 lb Physical Exam Narrative: EXAM NARRATIVE: Abdomen: Soft, slightly distended, minimally tender, incision clean dry and intact Data : 07/13/21 05:40 07/13/21 05:40 A&P Assessment and plan (1) Status post laparoscopic cholecystectomy: 30-year-old female status post laparoscopic cholecystectomy who stayed 1 more night postop for pain control and management of nausea. She is ready to go home today Discharge instructions given Follow-up 2 weeks Status: Acute Attestations Medical Necessity Statement*: DC home today Coding Level of Care Code Acute Winding Department Supervisor for Nelson Dave Diagnoses Status post laparoscopic cholecystectomy Z90.49
--- NOTE | 2021-07-14 15:13 | PC.NURSE ---
patients significant other verbalizes understanding of discharge instructions, home medications, and follow up appointments, and translated for patient.
[2021-07-14 15:29] VITALS: BP 103/69; PULSE 95; RESP 24; TEMP 36.9; O2SAT 96
--- NOTE | 2021-07-16 16:11 | DCPLANNER ---
state manager had message to schedule a follow up appointment for patient with [facility]. state manager called [facility], spoke with Eran, gave clinic patients information. state manager was told that patients information would be printed and reviewed. Clinic will call patient with appointment information.
== END 2021-07-14 15:33 | disposition home or self-care (01) ==
LOC: ER 07-13 00:34 → MEDSURG 07-13 04:12
PROVIDERS: Emergency Medicine; Admitting Provider Surgery; Emergency Provider Emergency Medicine; Visit Provider Surgery
PROC: 0FT44ZZ Resection of Gallbladder, Percutaneous Endoscopic Approach (ICD-10-PCS; CPT 47562; principal; 2021-07-13 08:00)
DX: O99.611 Diseases of the digestive system complicating pregnancy, first trimester (principal); K81.0 Acute cholecystitis; Z3A.09 9 weeks gestation of pregnancy
CPT/HCPCS: 47562; 12345; 36415; 76705; 76801; 76817; 80053; 81001; 83690; 83735; 84702; 84703; 85025; 87635; 88304; 96365; 96366; 96367; 96375; 99285; G0378; J0295; J1200; J2270; J2704; J2710; J3010; J3490; J7030

== ENCOUNTER 2021-07-24 12:52 | Emergency (ER) | payer OTHER, SELFPAY ==
[2021-07-24 13:28] VITALS: BP 101/70; PULSE 89; RESP 15; TEMP 36.4; O2SAT 98; BMI 24.0
[2021-07-24 15:41] LABS: Basophils % 0.3 %; Eosinophils # 0.4 10^3/uL (0.0-0.8); Eosinophils % 4.1 %; Hematocrit 39.6 % (37.0-47.0); Hemoglobin 13.7 g/dL (11.5-15.3); Lymphocytes # 1.1 10^3/uL (0.8-4.8); Lymphocytes % 12.4 %; Mean Corpuscular HGB Conc 34.6 g/dL (30.0-36.0); Mean Corpuscular Hemoglobin 29.7 pg (28.0-34.0); Mean Corpuscular Volume 85.7 fl (81-99); Mean Platelet Volume 10.1 fL (7.4-10.4); Monocytes # 0.5 10^3/uL (0.2-0.9); Monocytes % 5.3 %; Neutrophils # 6.97 10^3/uL (1.8-7.7); Neutrophils % 77.6 %; Nucleated Red Blood Cells % 0 %; Platelet Count 288 10^3/cmm (130-400); Red Blood Count 4.62 10^6/uL (4.1-5.3); Red Cell Distribution Width 11.9 % (12.1-15.1)
[2021-07-24 15:59] LABS: Anion Gap 13.1 (5-19); Blood Urea Nitrogen 6 mg/dL (6-20); Calcium 8.9 mg/dL (8.5-10.5); Carbon Dioxide 27 mmol/L (22-29); Chloride 96 mmol/L (98-107); Glucose 82 mg/dL (65-115); Osmolality Calculated 271 mOsm/kg (285-295); Potassium 4.1 mmol/L (3.5-5.1); Sodium 132 mmol/L (136-145)
--- NOTE | 2021-07-24 16:49 | ED_ITS ---
Documented by User: FER Ahn 07/24/21 16:51 HPI - Headache General: Chief Complaint: Headache Stated Complaint: MARTINEZ/ dizziness/ 11 wks preg Time Seen by Provider: 07/24/21 16:33 History of Present Illness: HPI Narrative: Patient complains about headache last 2 to 3 days. Has some dizziness. Patient is 11 weeks . Denies any vomiting. Has been drinking water. No history of migraines. MD elicited complaint: headache Onset (ago): day(s) Onset description: gradually Location: frontal and retro-orbital Severity: mild Quality & Timing: aching and squeezing Exacerbating factors: none Relieving factors: nothing Associated symptoms: Reports no associated symptoms; Deny chest pain, fever(s), nausea, rash or vomiting Review of Systems Const: Denies: fever(s), chills or body aches Eyes: Denies: change in vision or blurry vision ENMT: Denies: throat pain or nasal congestion Card: Denies: chest pain or dyspnea on exertion Resp: Denies: dyspnea, productive cough or non-productive cough GI: Denies: abdominal pain, nausea or vomiting Musc: Denies: extremity pain Skin/Breast: Denies: rash Neuro: Reports: headache(s) Psych: Denies: anxiety or depression Kartik/Lymph: Denies: easy bruising PFSH ED PFSH: Surgical History Status post laparoscopic cholecystectomy (07/13/21) Social History Smoking and tobacco status: never smoked Female Reproductive History: Date of last menstrual period: 04/13/21 Physical Exam Const: COMMON NORMALS: no acute distress, average body habitus and patient oriented x3 HENMT: COMMON NORMALS: normocephalic, EAC's normal and Normal external nose present HEAD & SCALP: normal to inspection and normocephalic FACE & SINUS: sinus tenderness frontal NOSE: Normal external nose present EXTERNAL AUDITORY CANAL: EAC's normal Eye: COMMON NORMALS: Equal, round and reactive pupils present, EOMs intact bilaterally and conjunctivae normal GENERAL EYE: appearance normal, both eyes and all related structures CONJUNCTIVA: Yes conjunctivae normal PUPIL: Yes Equal, round and reactive pupils present Neck/C-Spine: COMMON NORMALS: full ROM and no JVD CERVICAL SPINE: Yes Paracervical muscle tenderness Chest: COMMONS NORMALS: normal inspection of the chest Resp: COMMON NORMALS: normal respiratory effort and clear to auscultation bilaterally AUSCULTATION: clear to auscultation bilaterally Cardio: COMMON NORMALS: no JVD, regular rate and regular rhythm RATE: regular rate RHYTHM: regular rhythm GI: COMMON NORMALS: Normal to inspection, nondistended, normoactive bowel sounds present Extremity: COMMON NORMALS: normal to inspection and full ROM Neuro: COMMON NORMALS: patient oriented x3 Course Vital Signs: Vital signs: Vital Signs Temperature 97.6 F 07/24/21 13:28 Pulse Rate 85 07/24/21 17:02 Respiratory Rate 16 07/24/21 17:02 Blood Pressure 96/65 07/24/21 17:02 Pulse Oximetry 98 07/24/21 17:02 MDM - Headache Lab Data: Labs: Lab Results 07/24/21 07/24/21 07/24/21 15:32 15:32 17:20 WBC 9.0 10^3/uL 10^3/ uL (4.0-10.0) RBC 4.62 10^6/uL 10^6 /uL (4.1-5.3) Hgb 13.7 g/dL g/dL (11.5-15.3) Hct 39.6 % % (37.0-47.0) MCV 85.7 fl fl (81-99) MCH 29.7 pg pg (28.0-34.0) MCHC 34.6 g/dL g/dL (30.0-36.0) RDW 11.9 % L % (12.1-15.1) Plt Count 288 10^3/cmm 10^3 /cmm (130-400) MPV 10.1 fL fL (7.4-10.4) Neut % (Auto) 77.6 % % Lymph % (Auto) 12.4 % % [place] % (Auto) 5.3 % % Eos % (Auto) 4.1 % % Baso % (Auto) 0.3 % % Neut # (Auto) 6.97 10^3/uL 10^3 /uL (1.8-7.7) Lymph # (Auto) 1.1 10^3/uL 10^3/ uL (0.8-4.8) [place] # (Auto) 0.5 10^3/uL 10^3/ uL (0.2-0.9) Eos # (Auto) 0.4 10^3/uL 10^3/ uL (0.0-0.8) Baso # (Auto) 0.0 10^3/uL 10^3/ uL (0.0-0.1) Nucleated RBC % (a uto) 0 % % Nucleated RBCs # 0.0 /100WBC /100W BC Sodium 132 mmol/L L mmol /L (136-145) Potassium 4.1 mmol/L mmol/L (3.5-5.1) Chloride 96 mmol/L L mmol/ L (98-107) Carbon Dioxide 27 mmol/L mmol/L (22-29) Anion Gap 13.1 (5-19) BUN 6 mg/dL mg/dL (6-20) Creatinine 0.4 mg/dL L mg/dL (0.5-0.9) GFR Calculation 230.0 mL/min H mL /min (90-130) Glucose 82 mg/dL mg/dL (65-115) Calculated Osmolal ity 271 mOsm/kg L mOs m/kg (285-295) Calcium 8.9 mg/dL mg/dL (8.5-10.5) Urine Color Yellow (Yellow) Urine Appearance Clear (CLEAR) Urine pH 7 (5-7) Ur Specific Gravit y 1.015 (1.005-1.030) Urine Protein Neg (Negative) Urine Glucose (UA) Norm (Normal) Urine Ketones Negative (Negative) Urine Blood Neg (Negative) Urine Nitrate Negative (Negative) Urine Bilirubin Neg (Negative) Urine Urobilinogen 1 mg/dL H mg/dL (Negative) Ur Leukocyte Daisha ase 2+ H (Negative) Urine RBC 0-4 /hpf H /hpf (0-2) Urine WBC 5-10 /hpf H /hpf (0-5) Ur Squamous Epith Cells 15-25 /hpf H /hpf (0-5) Amorphous Sediment Not Reportable Urine Bacteria 1+ /hpf H /hpf (NONE) Discharge Plan Discharge Patient Disposition: Home Clinical Impression: Headache due to anesthesia Condition: Stable Prescriptions: No Action Diclegis 10-10 mg tablet,delayed release (DR/EC) 1 tab PO DAILY PRN (Reason: nausea and vomiting) 20 Days Qty: 20 RF: 0 hydrocodone-acetaminophen 5-325 mg tablet 1 tab PO Q6H PRN (Reason: pain) Qty: 20 RF: 0 Colace 100 mg capsule 100 mg PO BID Qty: 30 RF: 0 promethazine 12.5 mg tablet 12.5 mg PO TID PRN (Reason: nausea and vomiting) Qty: 20 RF: 0 Discharge Orders: Discharge ED (Routine); Ordered 07/24/21 Ordered By: Jerad Fonseca Discharge Diet: Usual diet Discharge Activity: Increase activity as tolerated Patient Instructions: General Headache (ED), Opioid Safety Activity Restrictions/Additional Instructions: Drink plenty of water. Use medications as directed. Healthy diet and exercise. Follow-up with primary care for further instruction. Return to the ER for new concerns. Sign Out Sign Out Data: Patient Sign Out occurred on 07/24/21 at 17:05. Patient's care was discussed, and care was transferred from to Jerad Fonseca. Coding Level of Care Code ED Chief Librarian Extension Department for Chg Fwd Exam Comprehensive Documented by User: FER Bernal 07/24/21 18:06 HPI - Headache General: Chief Complaint: Headache Stated Complaint: MARTINEZ/ dizziness/ 11 wks preg Time Seen by Provider: 07/24/21 16:33 [facility] ED PFSH: Surgical History Status post laparoscopic cholecystectomy (07/13/21) Social History Smoking and tobacco status: never smoked Course ED course: 1746, nursing reports that they are unable to establish IV due to the frailty of the veins. Patient has not had any vomiting. Patient appears mildly unwell but not toxic. We will give oral Zofran and encourage oral fluids to monitor for nausea and vomiting before further attempts with IV. Vital Signs: Vital signs: Vital Signs Temperature 97.6 F 07/24/21 13:28 Pulse Rate 85 07/24/21 17:02 Respiratory Rate 16 07/24/21 17:02 Blood Pressure 96/65 07/24/21 17:02 Pulse Oximetry 98 07/24/21 17:02 MDM - Headache MDM Narrative: Medical decision making narrative: Patient came in today for complaints of headache. Patient has also been having some nausea and vomiting due to . Patient reports headache since having her cholecystectomy at the first of the month. Since then patient has been doing well with her and denies any abnormal bleeding or vaginal discharge. Patient came in today due to increased headache. On exam respirations are even lungs are clear to auscultation. Patient appears mildly unwell. Differential diagnosis includes hyperemesis gravidarum, anesthesia related headache, dehydration. CBC was unremarkable, CMP did have some mild decrease in sodium at 132, patient was able to tolerate water in the ER. Patient's headache was treated with 25 of Phenergan IM and 4 mg of morphine, ketorolac was cautioned in first trimester so morphine was used for pain control. Recommended continuing with routine care and follow-up with primary care tomorrow for further instruction. No signs of serious illness was noted. Lab Data: Labs: Lab Results 07/24/21 07/24/21 07/24/21 15:32 15:32 17:20 WBC 9.0 10^3/uL 10^3/ uL (4.0-10.0) RBC 4.62 10^6/uL 10^6 /uL (4.1-5.3) Hgb 13.7 g/dL g/dL (11.5-15.3) Hct 39.6 % % (37.0-47.0) MCV 85.7 fl fl (81-99) MCH 29.7 pg pg (28.0-34.0) MCHC 34.6 g/dL g/dL (30.0-36.0) RDW 11.9 % L % (12.1-15.1) Plt Count 288 10^3/cmm 10^3 /cmm (130-400) MPV 10.1 fL fL (7.4-10.4) Neut % (Auto) 77.6 % % Lymph % (Auto) 12.4 % % [place] % (Auto) 5.3 % % Eos % (Auto) 4.1 % % Baso % (Auto) 0.3 % % Neut # (Auto) 6.97 10^3/uL 10^3 /uL (1.8-7.7) Lymph # (Auto) 1.1 10^3/uL 10^3/ uL (0.8-4.8) [place] # (Auto) 0.5 10^3/uL 10^3/ uL (0.2-0.9) Eos # (Auto) 0.4 10^3/uL 10^3/ uL (0.0-0.8) Baso # (Auto) 0.0 10^3/uL 10^3/ uL (0.0-0.1) Nucleated RBC % (a uto) 0 % % Nucleated RBCs # 0.0 /100WBC /100W BC Sodium 132 mmol/L L mmol /L (136-145) Potassium 4.1 mmol/L mmol/L (3.5-5.1) Chloride 96 mmol/L L mmol/ L (98-107) Carbon Dioxide 27 mmol/L mmol/L (22-29) Anion Gap 13.1 (5-19) BUN 6 mg/dL mg/dL (6-20) Creatinine 0.4 mg/dL L mg/dL (0.5-0.9) GFR Calculation 230.0 mL/min H mL /min (90-130) Glucose 82 mg/dL mg/dL (65-115) Calculated Osmolal ity 271 mOsm/kg L mOs m/kg (285-295) Calcium 8.9 mg/dL mg/dL (8.5-10.5) Urine Color Yellow (Yellow) Urine Appearance Clear (CLEAR) Urine pH 7 (5-7) Ur Specific Gravit y 1.015 (1.005-1.030) Urine Protein Neg (Negative) Urine Glucose (UA) Norm (Normal) Urine Ketones Negative (Negative) Urine Blood Neg (Negative) Urine Nitrate Negative (Negative) Urine Bilirubin Neg (Negative) Urine Urobilinogen 1 mg/dL H mg/dL (Negative) Ur Leukocyte Daisha ase 2+ H (Negative) Urine RBC 0-4 /hpf H /hpf (0-2) Urine WBC 5-10 /hpf H /hpf (0-5) Ur Squamous Epith Cells 15-25 /hpf H /hpf (0-5) Amorphous Sediment Not Reportable Urine Bacteria 1+ /hpf H /hpf (NONE) Discharge Plan Discharge Patient Disposition: Home Clinical Impression: Headache due to anesthesia Condition: Stable Prescriptions: No Action Diclegis 10-10 mg tablet,delayed release (DR/EC) 1 tab PO DAILY PRN (Reason: nausea and vomiting) 20 Days Qty: 20 RF: 0 hydrocodone-acetaminophen 5-325 mg tablet 1 tab PO Q6H PRN (Reason: pain) Qty: 20 RF: 0 Colace 100 mg capsule 100 mg PO BID Qty: 30 RF: 0 promethazine 12.5 mg tablet 12.5 mg PO TID PRN (Reason: nausea and vomiting) Qty: 20 RF: 0 Discharge Orders: Discharge ED (Routine); Ordered 07/24/21 Ordered By: Jerad Fonseca Discharge Diet: Usual diet Discharge Activity: Increase activity as tolerated Patient Instructions: General Headache (ED), Opioid Safety Activity Restrictions/Additional Instructions: Drink plenty of water. Use medications as directed. Healthy diet and exercise. Follow-up with primary care for further instruction. Return to the ER for new concerns. Sign Out Sign Out Data: Patient Sign Out occurred on 07/24/21 at 17:05. Patient's care was discussed, and care was transferred from to Jerad Fonseca. Coding Level of Care Code ED Chief Librarian Extension Department for Chg Fwd Exam Comprehensive
[2021-07-24 17:02] VITALS: BP 96/65; PULSE 85; RESP 16; O2SAT 98
[2021-07-24 17:49] LABS: Add Urine Microscopic? YES; Bilirubin Urine Neg (Negative); Blood Urine Neg (Negative); Glucose Urine UA Norm (Normal); Ketones Urine Negative (Negative); Leukocyte Esterase Urine 2+ (Negative); Nitrate Urine Negative (Negative); Protein Urine Neg (Negative); Specific Gravity, Urine 1.015 (1.005-1.030); Urine Appearance Clear (CLEAR); Urine Color Yellow (Yellow); Urobilinogen Urine 1 mg/dL (Negative); pH Urine 7 (5-7)
[2021-07-24 17:50] LABS: RBC Urine 0-4 /hpf (0-2); Squamous Epithelial Cell Urine 15-25 /hpf (0-5)
[2021-07-24 17:51] LABS: Add Urine Culture? No; Bacteria Urine 1+ /hpf
[2021-07-24] MEDS: promethazine 25 mg/mL SDV 1 mL IM (18:14)
[2021-07-24] MEDS: ondansetron 4 MG Tablet PO (18:14)
== END 2021-07-24 18:21 | disposition home or self-care (01) ==
PROVIDERS: Nurse Practitioner Family; Emergency Provider Nurse Practitioner Family
DX: G44.40 Drug-induced headache, not elsewhere classified, not intractable (principal); T41.45XA Adverse effect of unspecified anesthetic, initial encounter
CPT/HCPCS: 36415; 80048; 80053; 81001; 83690; 85025; 96372; 99283; J2550; Q0162

== ENCOUNTER 2021-08-08 00:03 | Emergency (ER) | payer OTHER, SELFPAY ==
[2021-08-08 00:11] VITALS: BP 102/71; PULSE 100; RESP 16; TEMP 36.6; O2SAT 97; BMI 24.7
--- NOTE | 2021-08-08 00:33 | ED_ITS ---
HPI - Nausea/Vomiting/Diarrhea General: Chief complaint: Nausea/Vomiting/Diarrhea Stated complaint: N\V [place] Under 3 months Time Seen by Provider: 08/08/21 00:29 History of Present Illness: 30-year-old female comes in today with complaints of nausea and vomiting. Patient is over 12 weeks . Reports over the last 2 days she was unable to hold anything down. Patient does have a language barrier and her male significant other is answering most of the questions. They report movement. They deny any vaginal discharge or bleeding. Patient is alert and oriented. Patient appears mildly unwell but not toxic. Patient appears in no pain. Associated nausea: Yes Associated symtoms: Reports nausea Review of Systems GI: Reports: nausea and vomiting [facility] ED PFSH: Surgical History Status post laparoscopic cholecystectomy (07/13/21) Social History Smoking and tobacco status: never smoked Female Reproductive History: Date of last menstrual period: 04/13/21 Physical Exam Const: EXAM LIMITATIONS: language barrier GENERAL APPEARANCE: cooperative HENMT: COMMON NORMALS: normocephalic HEAD & SCALP: normocephalic MOUTH: Normal oral and palatal mucosa present (Dry) Neck/C-Spine: COMMON NORMALS: no meningeal signs Resp: COMMON NORMALS: normal respiratory effort and clear to auscultation bilaterally AUSCULTATION: clear to auscultation bilaterally Cardio: COMMON NORMALS: regular rate and regular rhythm RATE: regular rate RHYTHM: regular rhythm GI: COMMON NORMALS: Soft to palpation and non-tender PALPATION: Yes Soft to palpation : COMMON NORMALS: Yes no CVA tenderness BLADDER/KIDNEY EXAM: Yes no CVA tenderness Back/Pelvis: COMMON NORMALS: no CVA tenderness and thoraco-lumbar ROM normal Extremity: COMMON NORMALS: normal to inspection and no pedal edema Neuro: COMMON NORMALS: moves all extremities MENINGEAL SIGNS: Yes no meningeal signs Psych: COMMON NORMALS: cooperative and normal affect Skin: COMMON NORMALS: no rashes or lesions noted GENERAL SKIN EXAM: no rashes or lesions noted Course ED course: 0230, patient reports improvement in symptoms. Patient is resting well. 1 L of normal saline has been infused. I recommend patient to have a second liter due to her signs of dehydration on laboratory values. Patient and spouse both report understanding. Vital Signs: Vital signs: Vital Signs Temperature 97.9 F 08/08/21 00:11 Pulse Rate 80 08/08/21 01:16 Respiratory Rate 18 08/08/21 01:16 Blood Pressure 110/71 08/08/21 01:16 Pulse Oximetry 97 08/08/21 01:16 MDM - Nausea/Vomiting/Diarrhea Medical Decision Making Patient came in today with increased nausea and vomiting over the last 24 hours. Patient was unable to hold down fluids today. Patient is in her first trimester of . On exam abdomen was soft with normal bowel sounds. Vital signs were normal. Differential diagnosis includes hyperemesis gravidarum, dehydration, viral illness. Laboratory values noted a sodium of 134 and potassium of 3.4. White blood cell count was 10.2. Vital signs were unremarkable. Patient was infused with 2 L of IV normal saline. Patient was given 25 mg of promethazine IM. Patient had improvement of symptoms and was able to tolerate oral fluids. Patient was recommended to follow-up with RELATIONSH[facility] B[facility]ER for further instructions. Lab Data : 08/08/21 00:53 08/08/21 00:53 Laboratory Results WBC 10.2 10^3/uL (4.0-10.0) H 08/08/21 00:53 RBC 4.45 10^6/uL (4.1-5.3) 08/08/21 00:53 Hgb 13.5 g/dL (11.5-15.3) 08/08/21 00:53 Hct 36.6 % (37.0-47.0) L 08/08/21 00:53 MCV 82.2 fl (81-99) 08/08/21 00:53 MCH 30.3 pg (28.0-34.0) 08/08/21 00:53 MCHC 36.9 g/dL (30.0-36.0) H 08/08/21 00:53 RDW 12.3 % (12.1-15.1) 08/08/21 00:53 Plt Count 250 10^3/cmm (130-400) 08/08/21 00:53 MPV 10.1 fL (7.4-10.4) 08/08/21 00:53 Neut % (Auto) 72.8 % 08/08/21 00:53 Lymph % (Auto) 15.3 % 08/08/21 00:53 [place] % (Auto) 5.9 % 08/08/21 00:53 Eos % (Auto) 5.1 % 08/08/21 00:53 Baso % (Auto) 0.5 % 08/08/21 00:53 Neut # (Auto) 7.40 10^3/uL (1.8-7.7) 08/08/21 00:53 Lymph # (Auto) 1.6 10^3/uL (0.8-4.8) 08/08/21 00:53 [place] # (Auto) 0.6 10^3/uL (0.2-0.9) 08/08/21 00:53 Eos # (Auto) 0.5 10^3/uL (0.0-0.8) 08/08/21 00:53 Baso # (Auto) 0.1 10^3/uL (0.0-0.1) 08/08/21 00:53 Nucleated RBC % (auto) 0 % 08/08/21 00:53 Nucleated RBCs # 0.0 /100WBC 08/08/21 00:53 Sodium 134 mmol/L (136-145) L 08/08/21 00:53 Potassium 3.4 mmol/L (3.5-5.1) L 08/08/21 00:53 Chloride 98 mmol/L (98-107) 08/08/21 00:53 Carbon Dioxide 21 mmol/L (22-29) L 08/08/21 00:53 Anion Gap 18.4 (5-19) 08/08/21 00:53 BUN 4 mg/dL (6-20) L 08/08/21 00:53 Creatinine 0.3 mg/dL (0.5-0.9) L 08/08/21 00:53 GFR Calculation 320.5 mL/min (90-130) H 08/08/21 00:53 Glucose 71 mg/dL (65-115) 08/08/21 00:53 Calculated Osmolality 273 mOsm/kg (285-295) L 08/08/21 00:53 Calcium 9.8 mg/dL (8.5-10.5) 08/08/21 00:53 Total Bilirubin 0.6 mg/dL (0.15-1.2) 08/08/21 00:53 AST 22 U/L (0-32) 08/08/21 00:53 ALT 48 U/L (0-33) H 08/08/21 00:53 Alkaline Phosphatase 105 IU/L (35-105) 08/08/21 00:53 Total Protein 7.0 g/dL (6.6-8.7) 08/08/21 00:53 Albumin 4.0 g/dL (3.5-5.2) 08/08/21 00:53 Globulin 3.0 g/dL (1.3-4.6) 08/08/21 00:53 HCG, Qual Positive (Negative) H 08/08/21 00:53 Other Data Reviewed old old labs noting changes in electrolytes. Noting recent history of gallbladder removal. And confirmed blood typing of B+ positive. Discharge Plan Discharge Patient Disposition: Home Clinical Impression: , Nausea and vomiting, Dehydration Condition: Stable Prescriptions: Continued promethazine 12.5 mg tablet 12.5 mg PO TID PRN (Reason: nausea and vomiting) Qty: 20 0RF Rx Instructions: 3 doses during day; last dose no later than 4 hr before bedtime No Action hydrocodone-acetaminophen 5-325 mg tablet 1 tab PO Q6H PRN (Reason: pain) Qty: 20 0RF Colace 100 mg capsule 100 mg PO BID Qty: 30 0RF Discharge Orders: Discharge ED (Routine); Ordered 08/08/21 Ordered By: Jerad Fonseca Discharge Diet: Advance as tolerated Discharge Activity: Increase activity as tolerated Activity Restrictions/Additional Instructions: Drink frequent sips of water to maintain hydration. Eat small frequent meals. Sometimes foods like saltine crackers can be helpful. Follow-up with [facility] for further instructions. Return to ER for worsening symptoms or new concerns. Coding Level of Care Code ED Recorder Helper Seismograph for Chg Fwd History Problem Focused Exam Expanded Problem Focused Medical Decision Making Moderate Complexity Time Spent (min) 30
[2021-08-08 01:00] LABS: Basophils # 0.1 10^3/uL (0.0-0.1); Basophils % 0.5 %; Eosinophils # 0.5 10^3/uL (0.0-0.8); Eosinophils % 5.1 %; Hematocrit 36.6 % (37.0-47.0); Hemoglobin 13.5 g/dL (11.5-15.3); Lymphocytes # 1.6 10^3/uL (0.8-4.8); Lymphocytes % 15.3 %; Mean Corpuscular HGB Conc 36.9 g/dL (30.0-36.0); Mean Corpuscular Hemoglobin 30.3 pg (28.0-34.0); Mean Corpuscular Volume 82.2 fl (81-99); Mean Platelet Volume 10.1 fL (7.4-10.4); Monocytes # 0.6 10^3/uL (0.2-0.9); Monocytes % 5.9 %; Neutrophils % 72.8 %; Nucleated Red Blood Cells % 0 %; Platelet Count 250 10^3/cmm (130-400); Red Blood Count 4.45 10^6/uL (4.1-5.3); Red Cell Distribution Width 12.3 % (12.1-15.1); White Blood Count 10.2 10^3/uL (4.0-10.0)
[2021-08-08] MEDS: promethazine 25 mg/mL SDV 1 mL IM (01:09)
[2021-08-08] MEDS: sodium chloride 0.9% 1,000 ML 999 ML IV ×2 (01:11→03:50)
[2021-08-08 01:12] LABS: HCG, Serum Qual Positive (Negative)
[2021-08-08 01:16] VITALS: BP 110/71; PULSE 80; RESP 18; O2SAT 97
[2021-08-08 01:25] LABS: Alanine Aminotransferase 48 U/L (0-33); Alkaline Phosphatase 105 IU/L (35-105); Anion Gap 18.4 (5-19); Aspartate Amino Transferase 22 U/L (0-32); Blood Urea Nitrogen 4 mg/dL (6-20); Calcium 9.8 mg/dL (8.5-10.5); Carbon Dioxide 21 mmol/L (22-29); Chloride 98 mmol/L (98-107); Glomerular Filtration Rate 320.5 mL/min (90-130); Glucose 71 mg/dL (65-115); Osmolality Calculated 273 mOsm/kg (285-295); Potassium 3.4 mmol/L (3.5-5.1); Sodium 134 mmol/L (136-145); Total Bilirubin 0.6 mg/dL (0.15-1.2)
[2021-08-08 04:42] VITALS: BP 100/64; PULSE 93; RESP 16; O2SAT 96
== END 2021-08-08 04:35 | disposition home or self-care (01) ==
PROVIDERS: Emergency Provider Nurse Practitioner Family
DX: O26.891 Other specified pregnancy related conditions, first trimester (principal); R11.2 Nausea with vomiting, unspecified; E86.0 Dehydration; Z3A.12 12 weeks gestation of pregnancy
CPT/HCPCS: 80053; 84703; 85025; 96360; 96372; 99283; J2550; J7030

== ENCOUNTER 2021-10-21 21:37 | Emergency (ER) | payer OTHER, SELFPAY ==
[2021-10-21 22:59] VITALS: BP 110/74; PULSE 88; RESP 18; TEMP 36.9; O2SAT 99; BMI 21.6
--- NOTE | 2021-10-21 23:12 | W.ED.DENTAL ---
HPI - Dental/Oral General: Chief complaint: Dental/Oral Stated complaint: tooth pain Time Seen by Provider: 10/21/21 23:07 Source: patient Mode of arrival: ambulatory Limitations: no limitations History of Present Illness: 30-year-old female is roughly 24 weeks she states she has been having left lower molar pain. States she does have poor dentition she has a scheduled dentist appointment next week but it is having worsening pain tonight states pain is a 6 out of 10 denies any difficulty swallowing denies difficulty opening her mouth. She denies any worsening improving factors. No vomiting or diarrhea no complaints Associated symptoms: Denies fever(s) Review of Systems Const: Denies: fever(s), chills, body aches or change in appetite Eyes: Denies: blurry vision or eye discomfort ENMT: Reports: dental pain Card: Denies: chest pain Resp: Denies: dyspnea GI: Denies: abdominal pain, nausea, vomiting or diarrhea : Denies: dysuria Musc: Denies: neck pain or back pain Skin/Breast: Denies: rash Neuro: Denies: headache(s) Psych: Denies: depression Kartik/Lymph: Denies: easy bruising All/Imm: Denies: urticaria PFSH ED PFSH: Surgical History Status post laparoscopic cholecystectomy (07/13/21) Social History Smoking and tobacco status: never smoked Female Reproductive History: Date of last menstrual period: 04/13/21 Physical Exam Const: COMMON NORMALS: no acute distress, patient oriented x3 and healthy appearing HENMT: COMMON NORMALS: normocephalic and atraumatic HEAD & SCALP: normocephalic and atraumatic OTHER: Dental caries with tenderness to left lower molar no trismus or abscess. Eye: COMMON NORMALS: Equal, round and reactive pupils present and EOMs intact bilaterally PUPIL: Yes Equal, round and reactive pupils present Neck/C-Spine: COMMON NORMALS: full ROM and supple Chest: COMMONS NORMALS: normal inspection of the chest and normal palpation of entire chest wall Resp: COMMON NORMALS: normal respiratory effort, No retractions, No use of accessory muscles and clear to auscultation bilaterally AUSCULTATION: clear to auscultation bilaterally Cardio: COMMON NORMALS: regular rate, regular rhythm and No murmurs present (Cardio) RATE: regular rate RHYTHM: regular rhythm GI: COMMON NORMALS: Normal to inspection, nondistended, normoactive bowel sounds present, Soft to palpation, non-tender and no masses PALPATION: Yes Soft to palpation Extremity: COMMON NORMALS: normal to inspection and full ROM Neuro: COMMON NORMALS: patient oriented x3, moves all extremities and no focal motor deficits Psych: COMMON NORMALS: mental status grossly normal, Normal thought process present and cooperative THOUGHT PROCESS: Normal thought process present Skin: COMMON NORMALS: no rashes or lesions noted and no wounds GENERAL SKIN EXAM: no rashes or lesions noted Course Vital Signs: Vital signs: Vital Signs Temperature 98.4 F 10/21/21 22:59 Pulse Rate 88 10/21/21 22:59 Respiratory Rate 18 10/21/21 22:59 Blood Pressure 110/74 10/21/21 22:59 Pulse Oximetry 99 10/21/21 22:59 [facility] - Dental/Oral Medical Decision Making Patient presents with dental pain left lower molar does have poor dentition we will place her on antibiotic she is to follow-up with the dentist as scheduled next week return if worsening Discharge Plan Discharge Patient Disposition: Home Clinical Impression: Toothache Condition: Stable Prescriptions: New cephalexin 500 mg capsule 500 mg PO TID 7 Days Qty: 21 0RF No Action promethazine 12.5 mg tablet 12.5 mg PO TID PRN (Reason: nausea and vomiting) Qty: 20 0RF Rx Instructions: 3 doses during day; last dose no later than 4 hr before bedtime hydrocodone-acetaminophen 5-325 mg tablet 1 tab PO Q6H PRN (Reason: pain) Qty: 20 0RF Colace 100 mg capsule 100 mg PO BID Qty: 30 0RF Discharge Orders: Discharge ED (Routine); Ordered 10/21/21 Ordered By: Sandra Li Discharge Diet: Advance as tolerated Discharge Activity: Resume usual activity Patient Instructions: Toothache (ED) Coding Level of Care Code ED Enterprise Business Architect for [facility] Dave
[2021-10-22] MEDS: cephALEXin 500 mg Capsule PO (00:17)
[2021-10-22] MEDS: HYDROcodone-acetaminophen 5-325 mg Tablet 1 TAB PO (00:17)
[2021-10-22 00:54] VITALS: BP 130/82; PULSE 90; RESP 18; O2SAT 98
== END 2021-10-22 00:55 | disposition home or self-care (01) ==
PROVIDERS: Emergency Provider Emergency Medicine
DX: O99.891 Other specified diseases and conditions complicating pregnancy (principal); K08.89 Other specified disorders of teeth and supporting structures; Z3A.24 24 weeks gestation of pregnancy
CPT/HCPCS: 99283

== ENCOUNTER 2022-02-11 00:59 | Inpatient (IN) | payer BC, MEDICAID, SELFPAY ==
[2022-02-11] VITALS (46 sets, daily range): BP systolic 91–152; BP diastolic 53–100; PULSE 82–129; RESP 16–18; TEMP 36.3–36.9; O2SAT 84–100; BMI 26.3
[2022-02-11 02:34] LABS: Basophils % 0.3 %; Eosinophils # 0.3 10^3/uL (0.0-0.8); Eosinophils % 2.3 %; Hematocrit 39.1 % (37.0-47.0); Hemoglobin 13.4 g/dL (11.5-15.3); Lymphocytes % 9.3 %; Mean Corpuscular HGB Conc 34.3 g/dL (30.0-36.0); Mean Corpuscular Hemoglobin 30.7 pg (28.0-34.0); Mean Corpuscular Volume 89.7 fl (81-99); Monocytes # 0.6 10^3/uL (0.2-0.9); Monocytes % 5.4 %; Neutrophils # 9.04 10^3/uL (1.8-7.7); Neutrophils % 81.7 %; Nucleated Red Blood Cells % 0 %; Platelet Count 176 10^3/cmm (130-400); Red Blood Count 4.36 10^6/uL (4.1-5.3); Red Cell Distribution Width 14.3 % (12.1-15.1); White Blood Count 11.1 10^3/uL (4.0-10.0)
[2022-02-11] MEDS: lactated ringers 1,000 ML 125 ML IV (09:34)
[2022-02-11] MEDS: oxytocin 30 UNIT/500 ML BAG IV (09:35)
[2022-02-11] MEDS: lactated ringers 1,000 ML 999 ML IV (13:55)
[2022-02-11] MEDS: lidocaine 2% INJ 20 mL INJECTION (14:18)
[2022-02-11] MEDS: acetaminophen 325 mg Tablet 650 MG PO (15:21)
--- NOTE | 2022-02-11 17:06 | PM.OPHPUD ---
Labor & Delivery H&P Update Date of Procedure: February 11, 2022 Date H&P Performed: 02/05/22 Admission Diagnosis: Planned procedure: expectant management of active labor
--- NOTE | 2022-02-11 17:09 | P.PCNOB_ITS ---
Delivery Note: Date of delivery: February 11, 2022 Pre-Delivery Course: The patient had routine care at [facility]. She is blood type B+ antibody negative, rubella immune, RPR nonreactive, hepatitis B surface antigen nonreactive, hepatitis C nonreactive, HIV nonreactive, GC chlamydia negative, UDS negative, glucose tolerance test 127, GBS negative. The patient had a laparoscopic cholecystectomy early in the otherwise there were no complications during the . Delivery: This is a 31-year-old at 40 weeks gestation who presented to labor and delivery in active labor. She was 3 to 4 cm dilated 80% effaced -3 station with regular contractions. Her labor seemed to stall out and it was augmented using Pitocin. She declined an epidural for pain management. When she was completely dilated and effaced artificial rupture of membranes was performed with meconium stained fluid. 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 She had a normal spontaneous vaginal delivery of a viable male infant weight 3400 g, 7 pounds 8 ounces, Apgars 7 and 9 over an intact perineum. The infant was suctioned at delivery and placed on mother's chest. The cord was clamped and cut. The placenta was delivered grossly intact and normal to inspection. There was a second-degree perineal laceration that was sutured using 3-0 chromic. The patient was anesthetized first using 2% lidocaine. Mother and were doing well after delivery. Estimated blood loss 300 mL. Coding Level of Care Code Acute Senior Maintenance Mechanic for Nelson Dave
[2022-02-11] MEDS: ibuprofen 800 mg tablet PO ×2 (18:12→21:40)
[2022-02-11] MEDS: docusate sodium 100 mg Capsule PO (18:12)
--- NOTE | 2022-02-11 19:08 | PC.NURSE ---
Patient has been encouraged multiple times to get out of bed and continues to refuse to urinate or ambulate to bathroom.
--- NOTE | 2022-02-11 19:09 | PC.NURSE ---
Pitocin turned off at 1312. Pitocin re-initiated at 1415 at delivery of placenta and infused until bag was complete.
[2022-02-12 00:12] VITALS: BP 107/61; PULSE 112; O2SAT 97
[2022-02-12 04:25] VITALS: BP 102/59; PULSE 93; TEMP 36.6; O2SAT 100
[2022-02-12 05:39] LABS: Hematocrit 33.9 % (37.0-47.0); Hemoglobin 11.6 g/dL (11.5-15.3); Mean Corpuscular HGB Conc 34.2 g/dL (30.0-36.0); Mean Corpuscular Volume 90.6 fl (81-99); Platelet Count 162 10^3/cmm (130-400); Red Blood Count 3.74 10^6/uL (4.1-5.3); Red Cell Distribution Width 14.4 % (12.1-15.1); White Blood Count 15.2 10^3/uL (4.0-10.0)
[2022-02-12] MEDS: prenatal vitamin Capsule 1 CAP PO (09:12)
[2022-02-12] MEDS: docusate sodium 100 mg Capsule PO (09:13)
[2022-02-12] MEDS: ibuprofen 800 mg tablet PO ×2 (09:13→15:27)
--- NOTE | 2022-02-12 15:47 | PC.NURSE ---
Patient up to ambulate hallways with standby assist. Patient tolerates activity fair. AR RN
--- NOTE | 2022-02-12 16:39 | P.DS_ITS ---
Discharge Providers Date of Admission: 02/11/22 00:59 Date of Discharge: February 12, 2022 Attending Provider at Admission: Loreto Bowers MD Attending Provider at Discharge: Loreto Bowers MD Primary Care Provider: Loreto Bowers MD Diagnoses at Discharge Discharge Diagnosis (1) Normal spontaneous vaginal delivery: Status: Acute Reason for Visit Reason for Visit: Abdominal pain Hospital Course Hospital Course This is a 31 y/o G1 now P1 who was admitted in active labor. She had an of a viable term male infant. Mother and have done well. She is ambulating, tolerating a regular diet, has average to light vaginal bleeding and is comfortable with discharge home. Physical Exam Narrative: alert and oriented, RRR, CTA bilaterally, soft NT/ND, fundus is firm and u-2, no calf tenderness. Discharge Data Studies Completed and Pending Laboratory Results WBC 15.2 10^3/uL (4.0-10.0) H 02/12/22 05:25 RBC 3.74 10^6/uL (4.1-5.3) L 02/12/22 05:25 Hgb 11.6 g/dL (11.5-15.3) 02/12/22 05:25 Hct 33.9 % (37.0-47.0) L 02/12/22 05:25 MCV 90.6 fl (81-99) 02/12/22 05:25 MCH 31.0 pg (28.0-34.0) 02/12/22 05:25 MCHC 34.2 g/dL (30.0-36.0) 02/12/22 05:25 RDW 14.4 % (12.1-15.1) 02/12/22 05:25 Plt Count 162 10^3/cmm (130-400) 02/12/22 05:25 MPV 11.0 fL (7.4-10.4) H 02/12/22 05:25 Neut % (Auto) 81.7 % 02/11/22 02:07 Lymph % (Auto) 9.3 % 02/11/22 02:07 [place] % (Auto) 5.4 % 02/11/22 02:07 Eos % (Auto) 2.3 % 02/11/22 02:07 Baso % (Auto) 0.3 % 02/11/22 02:07 Neut # (Auto) 9.04 10^3/uL (1.8-7.7) H 02/11/22 02:07 Lymph # (Auto) 1.0 10^3/uL (0.8-4.8) 02/11/22 02:07 [place] # (Auto) 0.6 10^3/uL (0.2-0.9) 02/11/22 02:07 Eos # (Auto) 0.3 10^3/uL (0.0-0.8) 02/11/22 02:07 Baso # (Auto) 0.0 10^3/uL (0.0-0.1) 02/11/22 02:07 Nucleated RBC % (auto) 0 % 02/11/22 02:07 Nucleated RBCs # 0.0 /100WBC 02/11/22 02:07 Vitals Last Vital Signs Temp 98.0 F 02/12/22 20:38 Pulse 89 02/12/22 20:38 Resp 16 02/12/22 20:38 BP 111/61 02/12/22 20:38 Pulse Ox 97 02/12/22 20:38 O2 Del Method 02/12/22 20:16 Discharge Plan Discharge Patient Disposition: Home Prescriptions: Continued prenat.vits,shauna,[id number] Tablet 1 tab PO DAILY Discharge Orders: Discharge Order (Routine); Ordered 02/12/22 Ordered By: Loreto Bowers Referrals: Loreto Bowers MD [Primary Care Provider] - 03/12/22 1:00 pm Discharge Diet: Usual diet Discharge Activity: Limit activity as instructed Patient Instructions: Preeclampsia and Eclampsia After Delivery (GEN), OB Discharge Report, OB Food/Drug Interaction Guide, OB Home Care Instructions, OB Care at Home, Opioid Safety, OB Vaginal Deliveries, Abnormal Bleeding Discharge Attestations Time Spent in Discharge Care*: less than 30 min Quality Metrics Clinical Quality Measures [ No reported AMI, CVA or VTE this stay] Coding Level of Care Code Acute Chg FW DC note Diagnoses Normal spontaneous vaginal delivery O80
[2022-02-12 17:31] VITALS: BP 100/63; PULSE 86; RESP 15; TEMP 36.8; O2SAT 95
[2022-02-12 20:16] VITALS: BP 111/61; PULSE 89; RESP 16; TEMP 36.7; O2SAT 97
[2022-02-12 20:38] VITALS: BP 111/61; PULSE 89; RESP 16; TEMP 36.7; O2SAT 97
== END 2022-02-12 20:38 | disposition home or self-care (01) | DRG 807 ==
LOC: OPOB 00:59 → OBGYN 00:59
PROVIDERS: Admitting Provider Family Medicine; PCP Family Medicine; Visit Provider Family Medicine
DX: O77.0 Labor and delivery complicated by meconium in amniotic fluid (principal); Z37.0 Single live birth; O70.1 Second degree perineal laceration during delivery; Z3A.40 40 weeks gestation of pregnancy
CPT/HCPCS: 36415; 59025; 59409; 85025; 85027; 99211

== ENCOUNTER 2023-02-22 18:01 | Emergency (ER) | payer BC, MEDICAID, SELFPAY ==
[2023-02-22 18:09] VITALS: BP 97/70; PULSE 97; RESP 16; TEMP 37.1; O2SAT 98; BMI 24.8
--- NOTE | 2023-02-22 19:19 | W.ED.NAVMDI ---
HPI - Nausea/Vomiting/Diarrhea General: Chief complaint: Nausea/Vomiting/Diarrhea Stated complaint: 8 wks , n/v Time Seen by Provider: 02/22/23 19:10 Source: patient Mode of arrival: ambulatory Limitations: no limitations History of Present Illness: 32-year-old female currently 18 weeks states she had vomiting over the last 2 days. She states she had issues with vomiting during her last . She had some slight abdominal cramping denies any bleeding denies any severe pain she has been afebrile denies any dysuria. Associated nausea: Yes Associated symtoms: Reports nausea; Denies chest pain, dysuria or headache(s) Review of Systems Const: Denies: fever(s) or chills ENMT: Denies: throat pain or dental pain Card: Denies: chest pain Resp: Denies: dyspnea GI: Reports: nausea and vomiting; Denies: abdominal pain or diarrhea : Denies: dysuria Musc: Reports: back pain; Denies: neck pain Skin/Breast: Denies: rash Neuro: Denies: headache(s) PFSH ED PFSH: Surgical History Status post laparoscopic cholecystectomy (07/13/21) Social History Smoking and tobacco status: never smoked Physical Exam Const: COMMON NORMALS: no acute distress, patient oriented x3 and healthy appearing HENMT: COMMON NORMALS: normocephalic and atraumatic HEAD & SCALP: normocephalic and atraumatic Eye: COMMON NORMALS: conjunctivae normal CONJUNCTIVA: Yes conjunctivae normal Neck/C-Spine: COMMON NORMALS: full ROM and supple Chest: COMMONS NORMALS: normal inspection of the chest Resp: COMMON NORMALS: normal respiratory effort Cardio: COMMON NORMALS: regular rate, regular rhythm and No murmurs present (Cardio) RATE: regular rate RHYTHM: regular rhythm GI: COMMON NORMALS: Normal to inspection, nondistended, normoactive bowel sounds present, Soft to palpation, non-tender and no masses PALPATION: Yes Soft to palpation Extremity: COMMON NORMALS: normal to inspection and full ROM Neuro: COMMON NORMALS: patient oriented x3, moves all extremities and no focal motor deficits Psych: COMMON NORMALS: mental status grossly normal, Normal thought process present and cooperative THOUGHT PROCESS: Normal thought process present Skin: COMMON NORMALS: no rashes or lesions noted and no wounds GENERAL SKIN EXAM: no rashes or lesions noted Course Vital Signs: Vital signs: Vital Signs Temperature 98.8 F 02/22/23 18:09 Pulse Rate 88 02/22/23 20:28 Respiratory Rate 16 02/22/23 20:28 Blood Pressure 120/75 02/22/23 20:28 Pulse Oximetry 99 02/22/23 20:28 Oxygen Delivery Me thod Room Air 02/22/23 20:28 MDM - Nausea/Vomiting/Diarrhea Medical Decision Making Patient presents here with vomiting in I did bedside ultrasound showed IUP heart rate was 152 she feels improved here blood works normal abdominal exam is benign she is stable for discharge we will prescribe her Zofran for home. Lab Data 02/22/23 19:27 02/22/23 19:27 Laboratory Results WBC 12.1 10^3/uL (4.0-10.0) H 02/22/23 19:27 RBC 4.94 10^6/uL (4.1-5.3) 02/22/23 19:27 Hgb 14.2 g/dL (11.5-15.3) 02/22/23 19:27 Hct 41.7 % (37.0-47.0) 02/22/23 19: MCV 84.4 fl (81-99) 02/22/23 19: MCH 28.7 pg (28.0-34.0) 02/22/23 19: MCHC 34.1 g/dL (30.0-36.0) 02/22/23 19:27 RDW 12.6 % (12.1-15.1) 02/22/23 19:27 Plt Count 262 10^3/cmm (130-400) 02/22/23 19: MPV 10.1 fL (7.4-10.4) 02/22/23 19:27 Neut % (Auto) 76.4 % 02/22/23 19: Lymph % (Auto) 13.0 % 02/22/23 19: [place] % (Auto) 5.1 % 02/22/23 19: Eos % (Auto) 4.7 % 02/22/23 19:27 Baso % (Auto) 0.4 % 02/22/23 19:27 Neut # (Auto) 9.26 10^3/uL (1.8-7.7) H 02/22/23 19:27 Lymph # (Auto) 1.6 10^3/uL (0.8-4.8) 02/22/23 19:27 [place] # (Auto) 0.6 10^3/uL (0.2-0.9) 02/22/23 19: Eos # (Auto) 0.6 10^3/uL (0.0-0.8) 02/22/23 19: Baso # (Auto) 0.1 10^3/uL (0.0-0.1) 02/22/23 19: Nucleated RBC % (auto) 0 % 02/22/23 19: Nucleated RBCs # 0.0 /100WBC 02/22/23 19:27 Sodium 135 mmol/L (136-145) L 02/22/23 19: Potassium 3.9 mmol/L (3.5-5.1) 02/22/23 19: Chloride 98 mmol/L (98-107) 02/22/23 19: Carbon Dioxide 28 mmol/L (22-29) 02/22/23 19: Anion Gap 12.9 (5-19) 02/22/23 19:27 BUN 8 mg/dL (6-20) 02/22/23 19:27 Creatinine 0.4 mg/dL (0.5-0.9) L 02/22/23 19:27 GFR Calculation 226.8 mL/min (90-130) H 02/22/23 19:27 Glucose 82 mg/dL (65-115) 02/22/23 19:27 Calculated Osmolality 277 mOsm/kg (285-295) L 02/22/23 19:27 Calcium 9.3 mg/dL (8.5-10.5) 02/22/23 19:27 Total Bilirubin 0.4 mg/dL (0.15-1.2) 02/22/23 19:27 AST 34 U/L (0-32) H 02/22/23 19:27 ALT 89 U/L (0-33) H 02/22/23 19:27 Alkaline Phosphatase 116 U/L (35-105) H 02/22/23 19:27 Total Protein 7.2 g/dL (6.6-8.7) 02/22/23 19:27 Albumin 3.8 g/dL (3.5-5.2) 02/22/23 19:27 Globulin 3.4 g/dL (1.3-4.6) 02/22/23 19:27 Urine Color Yellow (Yellow) 02/22/23 19:15 Urine Appearance Hazy (CLEAR) A 02/22/23 19:15 Urine pH 6 (5-7) 02/22/23 19:15 Ur Specific [place] 1.020 (1.005-1.030) 02/22/23 19:15 Urine Protein Trace (Negative) 02/22/23 19:15 Urine Glucose (UA) Norm (Normal) 02/22/23 19:15 Urine Ketones 1+ (Negative) H 02/22/23 19:15 Urine Blood Neg (Negative) 02/22/23 19:15 Urine Nitrate Negative (Negative) 02/22/23 19:15 Urine Bilirubin 1+ (Negative) H 02/22/23 19:15 Urine Urobilinogen 1 mg/dL (Negative) H 02/22/23 19:15 Ur Leukocyte Esterase 1+ (Negative) H 02/22/23 19:15 Urine RBC 0-4 /hpf (0-2) H 02/22/23 19:15 Urine WBC 5-10 /hpf (0-5) H 02/22/23 19:15 Ur Squamous Epith Cells 5-10 /hpf (0-5) H 02/22/23 19:15 Amorphous Sediment Not Reportable 02/22/23 19:15 Urine Bacteria 1+ /hpf (NONE) H 02/22/23 19:15 Urine Mucus 1+ /hpf 02/22/23 19:15 Discharge Plan Discharge Patient Disposition: Home Clinical Impression: Vomiting affecting Condition: Stable Prescriptions: New ondansetron 4 mg tablet,disintegrating 4 mg PO Q6H PRN (Reason: nausea and vomiting) Qty: 14 0RF No Action prenat.vits,shauna,[id number] Tablet 1 tab PO DAILY Discharge Orders: Discharge ED (Routine); Ordered 02/22/23 Ordered By: Sandra Li Referrals: Loreto Bowers MD [Primary Care Provider] - 1-3 days Discharge Diet: Advance as tolerated Discharge Activity: Resume usual activity Patient Instructions: Acute Nausea and Vomiting (ED) Coding Level of Care Code ED Charge Histotechnologist for Nelson Dave
[2023-02-22] MEDS: sodium chloride 0.9% 1,000 ML 999 ML IV (19:27)
[2023-02-22] MEDS: ondansetron 2 mg/ML SDV 2 mL 4 MG IVP (19:28)
[2023-02-22 19:31] LABS: Basophils # 0.1 10^3/uL (0.0-0.1); Basophils % 0.4 %; Eosinophils # 0.6 10^3/uL (0.0-0.8); Eosinophils % 4.7 %; Hematocrit 41.7 % (37.0-47.0); Hemoglobin 14.2 g/dL (11.5-15.3); Lymphocytes # 1.6 10^3/uL (0.8-4.8); Mean Corpuscular HGB Conc 34.1 g/dL (30.0-36.0); Mean Corpuscular Hemoglobin 28.7 pg (28.0-34.0); Mean Corpuscular Volume 84.4 fl (81-99); Mean Platelet Volume 10.1 fL (7.4-10.4); Monocytes # 0.6 10^3/uL (0.2-0.9); Monocytes % 5.1 %; Neutrophils # 9.26 10^3/uL (1.8-7.7); Neutrophils % 76.4 %; Nucleated Red Blood Cells % 0 %; Platelet Count 262 10^3/cmm (130-400); Red Blood Count 4.94 10^6/uL (4.1-5.3); Red Cell Distribution Width 12.6 % (12.1-15.1); White Blood Count 12.1 10^3/uL (4.0-10.0)
[2023-02-22 19:57] LABS: Alanine Aminotransferase 89 U/L (0-33); Albumin Level 3.8 g/dL (3.5-5.2); Alkaline Phosphatase 116 U/L (35-105); Anion Gap 12.9 (5-19); Aspartate Amino Transferase 34 U/L (0-32); Blood Urea Nitrogen 8 mg/dL (6-20); Calcium 9.3 mg/dL (8.5-10.5); Carbon Dioxide 28 mmol/L (22-29); Chloride 98 mmol/L (98-107); Globulin 3.4 g/dL (1.3-4.6); Glomerular Filtration Rate 226.8 mL/min (90-130); Glucose 82 mg/dL (65-115); Osmolality Calculated 277 mOsm/kg (285-295); Potassium 3.9 mmol/L (3.5-5.1); Sodium 135 mmol/L (136-145); Total Bilirubin 0.4 mg/dL (0.15-1.2); Total Protein 7.2 g/dL (6.6-8.7)
[2023-02-22 20:28] VITALS: BP 120/75; PULSE 88; RESP 16; O2SAT 99
[2023-02-22 20:36] LABS: Bilirubin Urine 1+ (Negative); Blood Urine Neg (Negative); Glucose Urine UA Norm (Normal); Ketones Urine 1+ (Negative); Nitrate Urine Negative (Negative); Protein Urine Trace (Negative); Urine Appearance Hazy (CLEAR); Urine Color Yellow (Yellow); pH Urine 6 (5-7)
[2023-02-22 20:37] LABS: Add Urine Microscopic? YES; Leukocyte Esterase Urine 1+ (Negative); Urobilinogen Urine 1 mg/dL (Negative)
[2023-02-22 20:38] LABS: Bacteria Urine 1+ /hpf; RBC Urine 0-4 /hpf (0-2)
[2023-02-22 20:39] LABS: Add Urine Culture? No; Mucus Urine 1+ /hpf
[2023-02-22 21:12] VITALS: BP 108/84; PULSE 89; RESP 16; O2SAT 98
[2023-02-22 21:13] VITALS: BP 108/84; PULSE 89; RESP 16; O2SAT 98
== END 2023-02-22 21:11 | disposition home or self-care (01) ==
PROVIDERS: Emergency Provider Emergency Medicine; PCP Family Medicine
DX: O21.9 Vomiting of pregnancy, unspecified (principal); Z3A.18 18 weeks gestation of pregnancy
CPT/HCPCS: 80053; 81001; 85025; 96374; 99284; J2405; J7030

== ENCOUNTER 2023-02-27 21:26 | Emergency (ER) | payer BC, MEDICAID, SELFPAY ==
[2023-02-27 21:31] VITALS: BP 105/75; PULSE 103; RESP 18; TEMP 36.6; O2SAT 97; BMI 26.4
[2023-02-27 23:29] LABS: Basophils # 0.1 10^3/uL (0.0-0.1); Basophils % 0.4 %; Eosinophils # 0.5 10^3/uL (0.0-0.8); Eosinophils % 3.2 %; Hematocrit 41.8 % (37.0-47.0); Hemoglobin 14.6 g/dL (11.5-15.3); Lymphocytes # 2.2 10^3/uL (0.8-4.8); Lymphocytes % 14.3 %; Mean Corpuscular HGB Conc 34.9 g/dL (30.0-36.0); Mean Corpuscular Hemoglobin 29.2 pg (28.0-34.0); Mean Corpuscular Volume 83.6 fl (81-99); Mean Platelet Volume 9.7 fL (7.4-10.4); Monocytes # 0.7 10^3/uL (0.2-0.9); Monocytes % 4.2 %; Neutrophils # 12.07 10^3/uL (1.8-7.7); Neutrophils % 77.6 %; Nucleated Red Blood Cells % 0 %; Platelet Count 287 10^3/cmm (130-400); Red Cell Distribution Width 12.6 % (12.1-15.1); White Blood Count 15.6 10^3/uL (4.0-10.0)
[2023-02-27] MEDS: ondansetron 2 mg/ML SDV 2 mL 4 MG IVP (23:38)
[2023-02-27] MEDS: sodium chloride 0.9% 1,000 ML 999 ML IV (23:38)
[2023-02-27] MEDS: famotidine 20 mg/2 mL INJ IVP (23:39)
[2023-02-27 23:53] LABS: Albumin Level 4.2 g/dL (3.5-5.2); Alkaline Phosphatase 126 U/L (35-105); Blood Urea Nitrogen 6 mg/dL (6-20); Calcium 9.4 mg/dL (8.5-10.5); Carbon Dioxide 26 mmol/L (22-29); Chloride 96 mmol/L (98-107); Globulin 3.7 g/dL (1.3-4.6); Glomerular Filtration Rate 316.1 mL/min (90-130); Glucose 82 mg/dL (65-115); Lipase 61 U/L (13-60); Osmolality Calculated 277 mOsm/kg (285-295); Sodium 135 mmol/L (136-145); Total Bilirubin 0.6 mg/dL (0.15-1.2); Total Protein 7.9 g/dL (6.6-8.7)
[2023-02-27 23:56] LABS: Alanine Aminotransferase 75 U/L (0-33); Anion Gap 16.9 (5-19); Aspartate Amino Transferase 37 U/L (0-32); Potassium 3.9 mmol/L (3.5-5.1)
[2023-02-28 00:10] LABS: Add Urine Microscopic? YES; Bilirubin Urine 1+ (Negative); Blood Urine Neg (Negative); Glucose Urine UA Norm (Normal); Ketones Urine Negative (Negative); Leukocyte Esterase Urine Negative (Negative); Nitrate Urine Negative (Negative); Protein Urine Neg (Negative); Urine Appearance Hazy (CLEAR); Urine Color Dark Yellow (Yellow); Urobilinogen Urine 4 mg/dL (Negative); pH Urine 5 (5-7)
[2023-02-28 00:11] LABS: Add Urine Culture? No; Amorphous Sediment Urine 1+ /hpf; Bacteria Urine TRACE /hpf; Mucus Urine 2+ /hpf; Squamous Epithelial Cell Urine 15-25 /hpf (0-5)
[2023-02-28 00:45] VITALS: BP 103/60; PULSE 91; RESP 16; O2SAT 98
--- NOTE | 2023-02-28 01:10 | ED_ITS ---
HPI - Nausea/Vomiting/Diarrhea General: Chief complaint: Nausea/Vomiting/Diarrhea Stated complaint: n/v 8 weeks Time Seen by Provider: 02/27/23 23:00 History of Present Illness: 32-year-old female who is G3, P2 with current intrauterine around 8 weeks presents emergency room with nausea, vomiting and epigastric pain that started within the past 24 hours. Patient described the pain as a burning sensation with severity of 5 out of 10. Reveals multiple episode of vomiting but denies vomiting blood or coughing up blood. Fever, chills, dysuria, hematuria urine frequency. No known sick contact or recent foreign travel. Patient had a care at the onset of her . Denies any vaginal bleeding, vaginal discharge, leakage of fluid flank pain Associated nausea: Yes Associated symtoms: Reports nausea; Denies fatigue, fecal incontinence or malaise Review of Systems General: Reports: 10 or more systems reviewed and unremarkable except in HPI and below Const: Denies: fever(s), chills, body aches, change in appetite, change in weight, fatigue or malaise GI: Reports: nausea and vomiting; Denies: abdominal pain, coffee ground emesis, early satiety, diarrhea, constipation, GI cramping, belching, excessive flatus, fecal incontinence, change in bowel habits, pain on defecation, rectal swelling, rectal itching or change in stool character PFSH ED PFSH: Surgical History Status post laparoscopic cholecystectomy (07/13/21) Social History Smoking and tobacco status: never smoked Physical Exam Const: COMMON NORMALS: no acute distress, average body habitus, patient o riented x3, no limitations, healthy appearing, alert and well nourished HENMT: COMMON NORMALS: normocephalic, atraumatic, hearing grossly normal b ilaterally, external ears normal, EAC's normal, TM's normal bilaterally, Normal external nose present, Normal nasal mucous membranes and turbinates present, moist oral mucous membranes, oropharynx normal, dentition normal and gingiva normal HEAD & SCALP: normocephalic and atraumatic NOSE: Normal external nose present and Normal nasal mucous membranes and turbinates present EXTERNAL EAR: Yes external ears normal EXTERNAL AUDITORY CANAL: EAC's normal TYMPANIC MEMBRANE: TM's normal bilaterally Chest: COMMONS NORMALS: normal inspection of the chest, normal palpation of entire chest wall, normal inspection of the breasts and normal palpation of the breasts Breast/axilla inspection: Yes normal inspection of the breasts BREAST/AXILLA PALPATION: Yes normal palpation of the breasts Resp: COMMON NORMALS: normal respiratory effort, No retractions, No use of accessory muscles, clear to auscultation bilaterally and percussion normal AUSCULTATION: clear to auscultation bilaterally PERCUSSION: percussion normal GI: COMMON NORMALS: Soft to palpation INSPECTION: Yes normal to inspection AUSCULTATION: Yes normoactive bowel sounds PALPATION: Yes Soft to palpation and Yes Tenderness to palpation present (GI) Details: other (epigastric) Extremity: COMMON NORMALS: normal to inspection, full ROM, capillary refill normal, no joint enlargement, no clubbing, cyanosis or edema, no calf tenderness and no pedal edema Neuro: COMMON NORMALS: patient oriented x3 SENSORIUM/ORIENTATION: Yes alert Course Reevaluation(s): Reevaluation #1: Upon reassessment patient main stable within acute distress. Patient reveals that she felt better. She was given oral challenge and was able to drink without vomiting. Be discharged home. Vital Signs: Vital signs: Vital Signs Temperature 97.8 F 02/27/23 21:31 Pulse Rate 91 02/28/23 00:45 Respiratory Rate 16 02/28/23 00:45 Blood Pressure 103/60 02/28/23 00:45 Pulse Oximetry 98 02/28/23 00:45 MDM - Nausea/Vomiting/Diarrhea Medical Decision Making Patient was made comfortable emergency room. Patient was given IV fluid, Pepcid and Zofran. Upon reassessment patient appears to be stable without vomiting. Discussed lab finding with patient. Differential Diagnosis Likely traveler's diarrhea, food poisoning, gastroenteritis, clostridium difficile infection, drug-induced nausea and vomiting and dehydration Lab Data 02/27/23 23:23 02/27/23 23:23 Laboratory Results WBC 15.6 10^3/uL (4.0-10.0) H 02/27/23 23:23 RBC 5.00 10^6/uL (4.1-5.3) 02/27/23 23:23 Hgb 14.6 g/dL (11.5-15.3) 02/27/23 23: Hct 41.8 % (37.0-47.0) 02/27/23 23: MCV 83.6 fl (81-99) 02/27/23 23: MCH 29.2 pg (28.0-34.0) 02/27/23 23: MCHC 34.9 g/dL (30.0-36.0) 02/27/23: RDW 12.6 % (12.1-15.1) 02/27/23: Plt Count 287 10^3/cmm (130-400) 02/27/23 23: MPV 9.7 fL (7.4-10.4) 02/27/23 23: Neut % (Auto) 77.6 % 02/27/23 23: Lymph % (Auto) 14.3 % 02/27/23 23: [place] % (Auto) 4.2 % 02/27/23 23: Eos % (Auto) 3.2 % 02/27/23 23: Baso % (Auto) 0.4 % 02/27/23 23: Neut # (Auto) 12.07 10^3/uL (1.8-7.7) H 02/27/23 23: Lymph # (Auto) 2.2 10^3/uL (0.8-4.8) 02/27/23 23: [place] # (Auto) 0.7 10^3/uL (0.2-0.9) 02/27/23 23: Eos # (Auto) 0.5 10^3/uL (0.0-0.8) 02/27/23 23: Baso # (Auto) 0.1 10^3/uL (0.0-0.1) 02/27/23: Nucleated RBC % (auto) 0 % 02/27/23: Nucleated RBCs # 0.0 /100WBC 02/27/23 23: Sodium 135 mmol/L (136-145) L 02/27/23 23: Potassium 3.9 mmol/L (3.5-5.1) 02/27/23 23: Chloride 96 mmol/L (98-107) L 02/27/23 23:23 Carbon Dioxide 26 mmol/L (22-29) 02/27/23 23:23 Anion Gap 16.9 (5-19) 02/27/23 23:23 BUN 6 mg/dL (6-20) 02/27/23 23:23 Creatinine 0.3 mg/dL (0.5-0.9) L 02/27/23 23:23 GFR Calculation 316.1 mL/min (90-130) H 02/27/23 23:23 Glucose 82 mg/dL (65-115) 02/27/23 23:23 Calculated Osmolality 277 mOsm/kg (285-295) L 02/27/23 23:23 Calcium 9.4 mg/dL (8.5-10.5) 02/27/23 23:23 Total Bilirubin 0.6 mg/dL (0.15-1.2) 02/27/23 23:23 AST 37 U/L (0-32) H 02/27/23 23:23 ALT 75 U/L (0-33) H 02/27/23 23:23 Alkaline Phosphatase 126 U/L (35-105) H 02/27/23 23:23 Total Protein 7.9 g/dL (6.6-8.7) 02/27/23 23:23 Albumin 4.2 g/dL (3.5-5.2) 02/27/23 23:23 Globulin 3.7 g/dL (1.3-4.6) 02/27/23 23:23 Lipase 61 U/L (13-60) H 02/27/23 23:23 Urine Color Dark yellow (Yellow) 02/27/23 23:13 Urine Appearance Hazy (CLEAR) A 02/27/23 23:13 Urine pH 5 (5-7) 02/27/23 23:13 Ur Specific [place] 1.020 (1.005-1.030) 02/27/23 23:13 Urine Protein Neg (Negative) 02/27/23 23:13 Urine Glucose (UA) Norm (Normal) 02/27/23 23:13 Urine Ketones Negative (Negative) 02/27/23 23:13 Urine Blood Neg (Negative) 02/27/23 23:13 Urine Nitrate Negative (Negative) 02/27/23 23:13 Urine Bilirubin 1+ (Negative) H 02/27/23 23:13 Urine Urobilinogen 4 mg/dL (Negative) H 02/27/23 23:13 Ur Leukocyte Esterase Negative (Negative) 02/27/23 23:13 Urine RBC None /hpf (0-2) 02/27/23 23:13 Urine WBC None /hpf (0-5) 02/27/23 23:13 Ur Squamous Epith Cells 15-25 /hpf (0-5) H 02/27/23 23:13 Amorphous Sediment 1+ /hpf 02/27/23 23:13 Urine Bacteria Trace /hpf (NONE) 02/27/23 23:13 Urine Mucus 2+ /hpf 02/27/23 23:13 Discharge Plan Discharge Patient Disposition: Home Clinical Impression: Vomiting affecting , Nausea and vomiting Condition: Stable Prescriptions: New Vitamin B-6 25 mg tablet 25 mg PO BID PRN (Reason: nausea and vomiting) Qty: 20 0RF promethazine 25 mg tablet 25 mg PO Q6H PRN (Reason: nausea and vomiting) Qty: 20 0RF No Action prenat.vits,shauna,[id number] Tablet 1 tab PO DAILY ondansetron 4 mg tablet,disintegrating 4 mg PO Q6H PRN (Reason: nausea and vomiting) Qty: 14 0RF Discharge Orders: Discharge ED (Routine); Ordered 02/28/23 Ordered By: Chung Brush Referrals: Loreto Bowers MD [Primary Care Provider] - Discharge Diet: Advance as tolerated Discharge Activity: Resume usual activity Patient Instructions: Opioid Safety, Pain Management Coding Level of Care Code ED Planogrammer for Chg Jolie
[2023-02-28 01:17] VITALS: BP 117/80; PULSE 83; RESP 16; O2SAT 98
== END 2023-02-28 01:18 | disposition home or self-care (01) ==
PROVIDERS: Emergency Provider Family Medicine; PCP Family Medicine
DX: O21.9 Vomiting of pregnancy, unspecified (principal); Z3A.08 8 weeks gestation of pregnancy
CPT/HCPCS: 80053; 81001; 81003; 83690; 85025; 96374; 96375; 99284; J2405; J3490; J7030

== ENCOUNTER 2023-03-05 17:58 | Emergency (ER) | payer BC, MEDICAID, SELFPAY ==
[2023-03-05 18:09] VITALS: BP 117/76; PULSE 102; RESP 16; TEMP 36.4; O2SAT 100
--- NOTE | 2023-03-05 21:03 | W.ED.NAVMDI ---
HPI - Nausea/Vomiting/Diarrhea General: Chief complaint: Nausea/Vomiting/Diarrhea Stated complaint: preg, abd pain, vomiting Time Seen by Provider: 03/05/23 21:03 History of Present Illness: 32-year-old female comes in today with persistent nausea and vomiting. Patient is in her ninth week of and has significant hyperemesis with pregnancies. This is patient's third . Patient appears nontoxic. Patient appears in mild pain. Patient denies any blood in the vomit or stool. Associated nausea: Yes Associated symtoms: Reports nausea Review of Systems General: Reports: 10 or more systems reviewed and unremarkable except in HPI and below GI: Reports: nausea and vomiting PFSH ED PFSH: Surgical History Status post laparoscopic cholecystectomy (07/13/21) Social History Smoking and tobacco status: never smoked Physical Exam Const: COMMON NORMALS: average body habitus and alert HENMT: COMMON NORMALS: atraumatic HEAD & SCALP: atraumatic Neck/C-Spine: COMMON NORMALS: full ROM Resp: COMMON NORMALS: normal respiratory effort Cardio: COMMON NORMALS: regular rate RATE: regular rate GI: COMMON NORMALS: non-tender Back/Pelvis: COMMON NORMALS: thoracic and lumbar spine normal to inspection Extremity: COMMON NORMALS: no pedal edema Neuro: SENSORIUM/ORIENTATION: Yes alert Skin: COMMON NORMALS: turgor normal GENERAL SKIN EXAM: turgor normal Course Vital Signs: Vital signs: Vital Signs Temperature 97.5 F L 03/05/23 18:09 Pulse Rate 76 03/05/23 23:30 Respiratory Rate 16 03/05/23 23:30 Blood Pressure 101/55 03/05/23 23:30 Pulse Oximetry 100 03/05/23 23:30 Oxygen Delivery Me thod Room Air 03/05/23 18:09 MDM - Nausea/Vomiting/Diarrhea Medical Decision Making 32-year-old female comes in today for complaints of persistent nausea and vomiting and . On exam patient appears mildly unwell but not toxic. Skin turgor is normal. Oral mucosa is moist. Respirations are even lungs are clear to auscultation. Vital signs are normal except for some mild elevation in pulse at 102. Differential diagnosis includes but not limited to dehydration, hyperemesis gravidarum, gastroenteritis, gallbladder disease. Laboratory values had some mild leukocytosis at 13,000, sodium was 134, creatinine 0.4, ALT's were 62 and alk phos was 131. Suspect patient probably has some mild dehydration. Patient was given 1 L of IV fluids along with antiemetic and acetaminophen for complaints of a headache. Patient reported improvement of symptoms and was stable and discharged home. Lab Data 03/05/23 20:53 03/05/23 20:53 Laboratory Results WBC 13.56 10^3/uL (3.29-11.43) H 03/05/23 20:53 RBC 5.33 10^6/uL (3.85-5.65) 03/05/23 20:53 Hgb 15.50 g/dL (11.27-16.99) 03/05/23 20:53 Hct 44.3 % (36-47) 03/05/23 20:53 MCV 83.1 fl (85-98) L 03/05/23 20:53 MCH 29.1 pg (27-33) 03/05/23 20:53 MCHC 35.0 g/dL (30-55) 03/05/23 20:53 RDW 12.6 % (12.1-15.1) 03/05/23 20:53 Plt Count 310 10^3/cmm (157-399) 03/05/23 20:53 MPV 10.1 fL (7.4-10.4) 03/05/23 20:53 Neut % (Auto) 74.9 % 03/05/23 20:53 Lymph % (Auto) 15.9 % 03/05/23 20:53 [place] % (Auto) 4.9 % 03/05/23 20:53 Eos % (Auto) 3.5 % 03/05/23 20:53 Baso % (Auto) 0.4 % 03/05/23 20:53 Neut # (Auto) 10.14 10^3/uL (1.8-7.7) H 03/05/23 20:53 Lymph # (Auto) 2.2 10^3/uL (0.8-4.8) 03/05/23 20:53 [place] # (Auto) 0.7 10^3/uL (0.2-0.9) 03/05/23 20:53 Eos # (Auto) 0.5 10^3/uL (0.0-0.8) 03/05/23 20:53 Baso # (Auto) 0.1 10^3/uL (0.0-0.1) 03/05/23 20:53 Nucleated RBC % (auto) 0 % 03/05/23 20:53 Nucleated RBCs # 0.0 /100WBC 03/05/23 20:53 Sodium 134 mmol/L (136-145) L 03/05/23 20:53 Potassium 3.7 mmol/L (3.5-5.1) 03/05/23 20:53 Chloride 96 mmol/L (98-107) L 03/05/23 20:53 Carbon Dioxide 27 mmol/L (22-29) 03/05/23 20:53 Anion Gap 14.7 (5-19) 03/05/23 20:53 BUN 5 mg/dL (6-20) L 03/05/23 20:53 Creatinine 0.4 mg/dL (0.5-0.9) L 03/05/23 20:53 GFR Calculation 226.8 mL/min (90-130) H 03/05/23 20:53 Glucose 79 mg/dL (65-115) 03/05/23 20:53 Calculated Osmolality 274 mOsm/kg (285-295) L 03/05/23 20:53 Calcium 9.6 mg/dL (8.5-10.5) 03/05/23 20:53 Total Bilirubin 0.4 mg/dL (0.15-1.2) 03/05/23 20:53 AST 22 U/L (0-32) 03/05/23 20:53 ALT 62 U/L (0-33) H 03/05/23 20:53 Alkaline Phosphatase 131 U/L (35-105) H 03/05/23 20:53 Total Protein 8.0 g/dL (6.6-8.7) 03/05/23 20:53 Albumin 4.6 g/dL (3.5-5.2) 03/05/23 20:53 Globulin 3.4 g/dL (1.3-4.6) 03/05/23 20:53 Lipase 23 U/L (13-60) 03/05/23 20:53 Urine Color Yellow (Yellow) 03/05/23 22:07 Urine Appearance Clear (CLEAR) 03/05/23 22:07 Urine pH 5 (5-7) 03/05/23 22:07 Ur Specific [place] 1.015 (1.005-1.030) 03/05/23 22:07 Urine Protein Neg (Negative) 03/05/23 22:07 Urine Glucose (UA) Norm (Normal) 03/05/23 22:07 Urine Ketones Negative (Negative) 03/05/23 22:07 Urine Blood Neg (Negative) 03/05/23 22:07 Urine Nitrate Negative (Negative) 03/05/23 22:07 Urine Bilirubin Neg (Negative) 03/05/23 22:07 Urine Urobilinogen Neg mg/dL (Negative) 03/05/23 22:07 Ur Leukocyte Esterase Trace (Negative) H 03/05/23 22:07 Urine RBC None /hpf (0-2) 03/05/23 22:07 Urine WBC 5-10 /hpf (0-5) H 03/05/23 22:07 Ur Squamous Epith Cells 10-15 /hpf (0-5) H 03/05/23 22:07 Amorphous Sediment 1+ /hpf 03/05/23 22:07 Urine Bacteria 1+ /hpf (NONE) H 03/05/23 22:07 Discharge Plan Discharge Patient Disposition: Home Clinical Impression: First trimester Nausea and vomiting Qualifiers: Vomiting type: unspecified Qualified Code(s): R11.2 - Nausea with vomiting, unspecified Condition: Stable Prescriptions: Continued Vitamin B-6 25 mg tablet 25 mg PO BID PRN (Reason: nausea and vomiting) Qty: 20 0RF promethazine 25 mg tablet 25 mg PO Q6H PRN (Reason: nausea and vomiting) Qty: 20 0RF No Action prenat.vits,shauna,hun-ahzm-nkzyh Tablet 1 tab PO DAILY ondansetron 4 mg tablet,disintegrating 4 mg PO Q6H PRN (Reason: nausea and vomiting) Qty: 14 0RF Discharge Orders: Discharge ED (Routine); Ordered 03/05/23 Ordered By: Jerad Fonseca Referrals: Loreto Bowers MD [Primary Care Provider] - Discharge Diet: Advance as tolerated Discharge Activity: Increase activity as tolerated Patient Instructions: Hyperemesis Gravidarum (ED) Activity Restrictions/Additional Instructions: Drink frequent sips of fluid such as water, or electrolyte solutions to maintain hydration. Eat small frequent meals to maintain energy. Use promethazine as needed for severe nausea and vomiting. Take B6 routinely to help with the prevention of nausea and vomiting. Follow-up with SCREW MACHINE SET UP OPERATOR for further instructions. Return to ER for persistent or worsening symptoms. Coding Level of Care Code ED Concrete Batcher for Nelson Dave
[2023-03-05 21:18] LABS: Basophils # 0.1 10^3/uL (0.0-0.1); Basophils % 0.4 %; Eosinophils # 0.5 10^3/uL (0.0-0.8); Eosinophils % 3.5 %; Hematocrit 44.3 % (36-47); Lymphocytes # 2.2 10^3/uL (0.8-4.8); Lymphocytes % 15.9 %; Mean Corpuscular Hemoglobin 29.1 pg (27-33); Mean Corpuscular Volume 83.1 fl (85-98); Mean Platelet Volume 10.1 fL (7.4-10.4); Monocytes # 0.7 10^3/uL (0.2-0.9); Monocytes % 4.9 %; Neutrophils # 10.14 10^3/uL (1.8-7.7); Neutrophils % 74.9 %; Nucleated Red Blood Cells % 0 %; Platelet Count 310 10^3/cmm (157-399); Red Blood Count 5.33 10^6/uL (3.85-5.65); Red Cell Distribution Width 12.6 % (12.1-15.1); White Blood Count 13.56 10^3/uL (3.29-11.43)
[2023-03-05 21:35] LABS: Alanine Aminotransferase 62 U/L (0-33); Albumin Level 4.6 g/dL (3.5-5.2); Alkaline Phosphatase 131 U/L (35-105); Anion Gap 14.7 (5-19); Aspartate Amino Transferase 22 U/L (0-32); Blood Urea Nitrogen 5 mg/dL (6-20); Calcium 9.6 mg/dL (8.5-10.5); Carbon Dioxide 27 mmol/L (22-29); Chloride 96 mmol/L (98-107); Globulin 3.4 g/dL (1.3-4.6); Glomerular Filtration Rate 226.8 mL/min (90-130); Glucose 79 mg/dL (65-115); Lipase 23 U/L (13-60); Osmolality Calculated 274 mOsm/kg (285-295); Potassium 3.7 mmol/L (3.5-5.1); Sodium 134 mmol/L (136-145); Total Bilirubin 0.4 mg/dL (0.15-1.2)
[2023-03-05] MEDS: ondansetron 2 mg/ML SDV 2 mL 4 MG IVP (22:14)
[2023-03-05] MEDS: diphenhydrAMINE 50 mg/mL SDV 1mL 12.5 MG IVP (22:14)
[2023-03-05] MEDS: lactated ringers 1,000 ML 999 ML IV (22:14)
[2023-03-05] MEDS: acetaminophen 1,000 MG/100 ML PIGGYBACK 400 MG IV (22:15)
[2023-03-05 22:29] LABS: Add Urine Microscopic? YES; Bilirubin Urine Neg (Negative); Blood Urine Neg (Negative); Glucose Urine UA Norm (Normal); Ketones Urine Negative (Negative); Leukocyte Esterase Urine Trace (Negative); Nitrate Urine Negative (Negative); Protein Urine Neg (Negative); Specific Gravity, Urine 1.015 (1.005-1.030); Urine Appearance Clear (CLEAR); Urine Color Yellow (Yellow); Urobilinogen Urine Neg (Negative); pH Urine 5 (5-7)
[2023-03-05 22:32] LABS: Add Urine Culture? No; Amorphous Sediment Urine 1+ /hpf; Bacteria Urine 1+ /hpf
[2023-03-05 23:30] VITALS: BP 101/55; PULSE 76; RESP 16; O2SAT 100
== END 2023-03-05 23:36 | disposition home or self-care (01) ==
PROVIDERS: Emergency Medicine; Emergency Provider Nurse Practitioner Family; PCP Family Medicine
DX: O21.8 Other vomiting complicating pregnancy (principal); Z3A.09 9 weeks gestation of pregnancy
CPT/HCPCS: 36415; 80053; 81001; 83690; 85025; 96374; 96375; 99284; J0131; J1200; J2405; J7120

== ENCOUNTER 2023-09-21 12:47 | Outpatient (CLI) | payer BC, MEDICAID, SELFPAY ==
[2023-09-21 12:47] VITALS: BMI 30.7
[2023-09-21 13:06] VITALS: BP 115/65; PULSE 100
[2023-09-21 13:21] VITALS: BP 111/71; PULSE 91
== END 2023-09-21 13:40 | disposition home or self-care (01) ==
LOC: OPOB 12:51 → OBGYN 12:52
PROVIDERS: PCP Family Medicine; Visit Provider Family Medicine
DX: O24.419 Gestational diabetes mellitus in pregnancy, unspecified control (principal); Z3A.00 Weeks of gestation of pregnancy not specified
CPT/HCPCS: 59025

== ENCOUNTER 2023-09-25 16:50 | Outpatient (CLI) | payer BC, MEDICAID, SELFPAY ==
[2023-09-25 16:50] VITALS: BMI 30.7
[2023-09-25 17:03] VITALS: BP 110/66; PULSE 97
[2023-09-25 17:24] VITALS: BP 117/78; PULSE 89
== END 2023-09-25 17:40 | disposition home or self-care (01) ==
LOC: OPOB 16:58 → OBGYN 16:59
PROVIDERS: PCP Family Medicine; Visit Provider Family Medicine
DX: O24.419 Gestational diabetes mellitus in pregnancy, unspecified control (principal); Z3A.00 Weeks of gestation of pregnancy not specified
CPT/HCPCS: 59025

== ENCOUNTER 2023-09-27 06:21 | Inpatient (IN) | payer BC, MEDICAID, SELFPAY ==
[2023-09-27] VITALS (109 sets, daily range): BP systolic 98–144; BP diastolic 53–88; PULSE 83–136; TEMP 36.2; O2SAT 92–100; BMI 30.7
[2023-09-27] MEDS: lactated ringers 1,000 ML 999 ML IV ×2 (05:35→06:35)
[2023-09-27 05:56] LABS: Basophils % 0.3 %; Eosinophils # 0.2 10^3/uL (0.0-0.8); Eosinophils % 1.9 %; Hematocrit 43.8 % (36-47); Lymphocytes # 2.1 10^3/uL (0.8-4.8); Lymphocytes % 22.6 %; Mean Corpuscular HGB Conc 34.7 g/dL (30-55); Mean Corpuscular Hemoglobin 31.1 pg (27-33); Mean Corpuscular Volume 89.6 fl (85-98); Mean Platelet Volume 11.4 fL (7.4-10.4); Monocytes # 0.5 10^3/uL (0.2-0.9); Monocytes % 5.3 %; Neutrophils % 69.6 %; Nucleated Red Blood Cells % 0 %; Platelet Count 164 10^3/cmm (157-399); Red Blood Count 4.89 10^6/uL (3.85-5.65); Red Cell Distribution Width 14.7 % (12.1-15.1); White Blood Count 9.06 10^3/uL (3.29-11.43)
--- NOTE | 2023-09-27 06:51 | P.HP_ITS ---
Providers/Chief Complaint 2 Admitting Physician: Alfredo Toledo MD Primary Care Provider: Loreto Bowers MD Chief Complaint: contractions, possible ROM History of Present Illness Laura Thomas is a 32 year old at 39.2 weeks gestation by LMP consistent with 20-week ultrasound. Her is complicated by gestational diabetes that is diet controlled. The patient has been managed by Dr. Bowers at [facility] and I am covering for her today. The patient began having increasing contractions last night and this morning she had gross rupture of membranes at home. For this reason she presented to labor and delivery for further evaluation. She was 6 cm upon arrival. She is kenneth every 3 minutes upon arrival and heart tones are in the mid 130s with moderate variability. Initial blood sugar was 98. Upon review of records, the patient is negative for chlamydia, gonorrhea, trichomonas, RPR. Rubella is immune, her HIV, hepatitis C, hepatitis B are all nonreactive. Her blood type is a positive and antibody screen is negative. Her GBS was negative. She denies any chest pains, shortness of breath, nausea, vomiting, diarrhea, constipation, fever. Medications/Allergies Home Medications Medication Instructions Recorded Confirmed Last Taken Type prenat.vits,shauna,hgm-wshv-wiben 1 tab PO DAILY 02/11/22 09/27/23 09/26/23 History Allergies Allergy/AdvReac Type Severity Reaction Status Date / Time metoclopramide Allergy ALGY-Rash Verified 09/27/23 06:48 PFSH Acute 2 PFSH: Surgical History Status post laparoscopic cholecystectomy (07/13/21) Social History Smoking and tobacco/nicotine status: never used tobacco/nicotine Female Reproductive History: : 3 Vitals/I&O/Wt Last Vital Signs Pulse 106 H 09/27/23 06:49 BP 120/68 09/27/23 06:49 Pulse Ox 98 09/27/23 06:49 O2 Del Method Room Air 09/27/23 06:10 Weight last 48 hrs Weight 190 lb Physical Exam 2 Narrative: General: Alert and oriented x3 Eyes: Pupils equal round and reactive to light and accommodation Mouth: Mucous membranes moist, pharynx non-erythematous Cardiac: Regular rate and rhythm without murmurs Lungs: Clear to auscultation bilaterally without wheezes, crackles or rhonchi Abdomen: Soft, non-tender, fundus consistent with gestational age Extremities: +1 edema in the bilateral lower extremities Data 09/27/23 05:40 A&P Assessment and plan (1) Supervision of high risk , unspecified, third trimester: The patient is in spontaneous labor and 6 cm dilated upon arrival. She is grossly ruptured. She will be set up for a laboring epidural. Initial blood sugar is 98. We will proceed with routine intrapartum management. If her contractions started spaced out, and she is not making sufficient change, we will consider adding IV Pitocin. All questions were answered. (2) Gestational diabetes: Attestations 2 Medical Necessity Statement*: The patient will be here for greater than 2 midnights due to routine intrapartum and management of labor and delivery. Coding Level of Care Code Acute Code for Chg Fwd Diagnoses Supervision of high risk , unspecified, third trimester O09.93 Gestational diabetes O24.419
[2023-09-27 06:56] LABS: Glucose Point of Care 97 mg/dL (70-110)
[2023-09-27] MEDS: ROPivacaine syringe 100 MG/50 ML SYRINGE 10 MG EPIDURAL (06:57)
--- NOTE | 2023-09-27 07:03 | P.ANESASSM_ITS ---
Pre-Anesthetic Assessment Height/Weight: Height 1.68 m Weight 86.183 kg Pulse BP Pulse Ox O2 Del Method 102 H 119/72 99 Room Air 09/27/23 06:59 09/27/23 06:59 09/27/23 06:59 09/27/23 06:10 Preop Diagnosis: IUP Labor epidural Familial anesthetic complications: None Was Beta Rohini taken within 24 hours: N/A Was Clonidine taken within 24 hours: N/A Last intake: 1800 Social No alcohol and No tobacco Exam alert, oriented x 3 and clear to auscultation bilaterally Airway Mallampati: Class III Dentition: full History/ROS No significant history except as noted Pulmonary None reported CV/HEM None reported None reported Hepatic None reported GI None reported Metabolic GDM Musc/skel None reported Neuropsych None reported Anesthetic Plan ASA status: 2 Anesthesia: Anesthesia Evaluation and Regional (specify below) (epidural) Risk of > 500 ml blood loss (7ml/kg in children): No Medications/Allergies Home Medications Medication Instructions Recorded Confirmed Last Taken Type prenat.vits,shauna,hkz-tbmt-nmojt 1 tab PO DAILY 02/11/22 09/27/23 09/26/23 History Allergies Allergy/AdvReac Type Severity Reaction Status Date / Time metoclopramide Allergy ALGY-Rash Verified 09/27/23 06:48 Current Medications Generic Name Dose Route Start Last Admin Trade Name Freq PRN Reason Stop Dose Admin Lactated Ringer's 1,000 mls @ 999 mls/hr 09/27/23 05:44 09/27/23 05:35 Lactated Ringers IV 999 mls/hr .Q1H1M PRN Administration See label comments [facility] Anesthesia Surgical History Status post laparoscopic cholecystectomy (07/13/21) Social History Smoking and tobacco/nicotine status: never used tobacco/nicotine Female Reproductive History : 3 Data Anesthesia 09/27/23 05:40 Short CBC 09/27/23 Range/Units 05:40 WBC 9.06 (3.29-11.43) 10^3/uL Hgb 15.20 (11.27-16.99) g/dL Hct 43.8 (36-47) % MCV 89.6 (85-98) fl Plt Count 164 (157-399) 10^3/cmm Neut % (Auto) 69.6 % Neut # (Auto) 6.30 (1.8-7.7) 10^3/uL Blood Bank 09/27/23 05:40 Blood Type B Positive Rho(D) Type Rh positive Antibody Screen Negative Cardiac Studies: 2 No Data to Display Anesthesia Procedures Epidural Time Out Performed: Yes Consents Signed: Procedure Consent Consent: requested by attending/covering physician, from patient, risks and benefits reviewed and patient agrees to proceed Lumbar Level: L4-L5 Epidural position: sitting Epidural procedure: sterile prep of area, 1% lidocaine to numb the area, 18 g needle, negative for paresthesia passed, neg for paresthesia, test dose given, 1.5% xylocaine 1:200k epi, 0.2% Ropivacaine bolus ml (5), placed PCEA, no systemic response, sterile dressing applied, L.U.D. no apparent complications and 0.2% Ropiavacaine @ mls/hr (10) Additional Comments: REHAN 6cm, catheter easily threaded to 5cm in the space. Pt educated on epidural and PATIENT SERVICE COORDINATOR with her at bedside to help translate.
--- NOTE | 2023-09-27 09:03 | PM.MISC ---
Miscellaneous Note Note: Called by OB due to epidural pump alarming high pressure. Pulled epidural catheter back 1cm, re-taped epidural, bolused 100mcg fenanyl via epidural, and increased pump infusion rate to 13mL/hr. Before leaving, patient was resting comfortably. Educated patient and on epidural bolus button and encouraged use if patient became uncomfortable.
[2023-09-27] MEDS: dextrose 5%-lactated ringers 1,000 ML 125 ML IV (09:12)
[2023-09-27] MEDS: ROPivacaine syringe 100 MG/50 ML SYRINGE 13 MG EPIDURAL (09:12)
[2023-09-27] MEDS: oxytocin 30 UNIT/500 ML BAG IV (10:38)
[2023-09-27] MEDS: lidocaine 2% INJ 20 mL INJECTION (12:14)
--- NOTE | 2023-09-27 12:43 | P.PCNOB_ITS ---
Delivery Note: Date of delivery: September 27, 2023 Pre-delivery diagnoses: 1. Intrauterine at 39.2 weeks gestation 2. Gestational diabetes - diet controll ed 3. Spontaneous rupture membranes at bryan e Post-delivery diagnoses: 1. Intrauterine status post s pontaneous vaginal delivery at 39.2 weeks gestation 2. Gestational diabetes - diet-controll ed 3. Spontaneous rupture membranes at bryan e 4. Delivery of healthy male rebecca lowryng 7 pounds 10 ounces with Apgars of 9 and 9 Procedure: Spontaneous vaginal delivery Second-degree perineal laceration with repair Delivering Physician: Alfredo Toledo MD Estimated blood loss (mL): 200 Findings: Intact placenta with central umbilical cord insertion site Healthy male weighing 7 pounds 10 ounces with Apgars of 9 and 9 Pre-Delivery Course: Laura Thomas is a 32 year old G3 now P2012 status post spontaneous vaginal livery at 39.2 weeks gestation by LMP consistent with 20-week ultrasound. Her was complicated by gestational diabetes that is diet controlled. The patient has been managed by Dr. Bowers at [facility] and I am covering for her today. The patient began having increasing contractions last night and this morning she had gross rupture of membranes at home. For this reason she presented to labor and delivery for further evaluation. She was 6 cm upon arrival. She was kenneth every 3 minutes upon arrival and heart tones are in the mid 130s with moderate variability. Initial blood sugar was 98. The patient received a laboring epidural and initially it did not help, however eventually they were able to get it to provide adequate anesthesia. The patient continued to make change however it was slow change. IV Pitocin was started at 2 units, and the patient quickly changed to anterior lip. Some variables were noted, so the Pitocin was stopped. The patient then changed to complete at 11:30 AM on 09/27/2023. Delivery: The patient began pushing at 11:40 AM on 09/27/2023. The patient pushed well and the infant delivered in the OA position at 12:04 PM on 09/27/2023. The right shoulder was the anterior shoulder and it delivered with downward pressure. Rest of the infant delivered without complication. The 's mouth and nose were bulb suctioned by myself. The infant was crying immediately upon delivery and was vigorous. The was placed on the mother's chest where the nurses were waiting to care for him. The umbilical cord was clamped after approximatel y 1 minute and cut by myself. Cord blood was obtained and the cord was then drained of blood. Traction was placed on the umbilical cord and uterine massage was carried out. The placenta delivered without complication at 12:08 PM on 09/27/2023. The placenta was noted to be intact with a central umbilical cord insertion site. IV Pitocin was bolused. The uterus was massaged and the cervix was inspected. No lacerations were noted of the cervix. The vaginal wall was inspected and a second-degree perineal laceration was noted. 2% lidocaine was placed for anesthesia. 3-0 Vicryl was placed in a running fashion to repair the laceration. The patient tolerated this well. A rectal exam was done and no sutures were noted in the rectal vault. Currently both the mother and infant are doing well. History History Past Pregnancies Del. Date GA/Weeks Outcome Route Wt Inf Gender Labor Lgth Comp. Anesth esia Location 09/27/23 39 live - full term Vaginal 7 lb 10 oz Male 8 regional [facility] - [facility] Delivery Date: 09/27/23 Last Updated by: Alfredo Toledo MD gDM diet controlled, SROM at home - came in spontaneous labor, from [facility] A&P Assessment and plan (1) Spontaneous vaginal delivery: (2) Gestational diabetes: Coding Level of Care Code Acute Code for Chg Fwd Diagnoses Spontaneous vaginal delivery O80 Gestational diabetes O24.419
[2023-09-27] MEDS: benzocaine-menthol 78 gm Canister 1 SPRAY TOPICAL (14:36)
[2023-09-27] MEDS: ibuprofen 800 mg tablet PO ×2 (14:36→20:32)
[2023-09-27] MEDS: lanolin oint 7 gm 1 APPLIC TOPICAL (14:37)
--- NOTE | 2023-09-27 14:45 | PC.NURSE ---
Pt ambulated to bathroom without difficulty. Pt voided moderate amount, not in hat. Xochitl care performed by pt. Pt then began feeling dizzy, like she was going to pass out. Pt assisted to wheelchair and back into bed. Vitals stable, bleeding scant to small, fundus firm. IV fluids running. Pt feeling better after laying in bed. Pt encouraged to rest/nap, baby to nursery for mom to sleep.
[2023-09-27] MEDS: docusate sodium 100 mg Capsule PO (17:24)
[2023-09-28 01:21] LABS: Hematocrit 38.4 % (36-47); Mean Corpuscular HGB Conc 34.6 g/dL (30-55); Mean Corpuscular Hemoglobin 31.1 pg (27-33); Mean Corpuscular Volume 89.9 fl (85-98); Mean Platelet Volume 11.3 fL (7.4-10.4); Platelet Count 174 10^3/cmm (157-399); Red Blood Count 4.27 10^6/uL (3.85-5.65); Red Cell Distribution Width 14.7 % (12.1-15.1); White Blood Count 11.18 10^3/uL (3.29-11.43)
[2023-09-28] MEDS: HYDROcodone-acetaminophen 5-325 mg Tablet PO ×2 (02:01→15:39)
[2023-09-28 05:06] VITALS: BP 108/73; PULSE 89; RESP 16; TEMP 36.8; O2SAT 97
[2023-09-28] MEDS: docusate sodium 100 mg Capsule PO ×2 (09:52→21:01)
[2023-09-28 09:53] VITALS: BP 122/84; PULSE 84; RESP 16; TEMP 36.8
[2023-09-28] MEDS: ibuprofen 800 mg tablet PO ×3 (09:53→21:02)
[2023-09-28] MEDS: benzocaine-menthol 78 gm Canister 1 SPRAY TOPICAL (10:45)
--- NOTE | 2023-09-28 14:37 | P.PN_ITS ---
Subjective 2 Subjective: The patient is doing well overall at this time. Her bleeding is decreasing well. She is ambulating, voiding, passing gas and tolerating food by mouth. Her pain has been increased associated with breast-feeding. The medications are doing okay to help with her pain at this point. Vitals/I&O/Wt Last Vital Signs Temp 98.3 F 09/28/23 09:53 Pulse 84 09/28/23 09:53 Resp 16 09/28/23 09:53 BP 122/84 09/28/23 09:53 Pulse Ox 97 09/28/23 05:06 O2 Del Method Room Air 09/28/23 05:06 09/27/23 09/28/23 09/28/23 22:59 06:59 14:59 Intake Total 1400 / 4000.000 Balance 1400 / 3700.000 Weight last 48 hrs Weight 190 lb Physical Exam 2 Narrative: General: Alert and oriented x3 Cardiac: Regular rate and rhythm without murmurs Lungs: Clear to auscultation bilaterally without wheezes, crackles or rhonchi Abdomen: Soft, mild tenderness over uterus. The uterus is firm and 2 cm below the umbilicus. Extremities: +1 pitting edema in the bilateral lower extremities Urinary Catheter Management: Pink Latex: Cath Placed During This Visit: yes, but has since been removed by the nurse Reason for Continuing Indwelling Catheter: Decision to DC Catheter Urinary Catheter Date of Insertion: 09/27/23 Urinary Catheter Time of Insertion: 09:15 Date Urinary Catheter Removed: 09/27/23 Time Urinary Catheter Discontinued: 11:35 Data 09/28/23 00:54 A&P Assessment and plan (1) Spontaneous vaginal delivery: The patient is doing well overall at this time. She is having some pain associated with breast-feeding. She is doing well otherwise. We will plan for discharge home tomorrow as long as everything continues to go well. Routine discharge instructions were discussed. Attestations 2 Medical Necessity Statement*: The patient will be here for greater than 2 midnights due to routine intrapartum and management of labor and delivery. Coding Level of Care Code Acute Code for Chg Fwd Diagnoses Spontaneous vaginal delivery O80
[2023-09-28 15:40] VITALS: BP 107/74; PULSE 100; RESP 16; TEMP 36.7
[2023-09-28 20:53] VITALS: BP 109/70; PULSE 84; RESP 16; TEMP 36.6; O2SAT 98
[2023-09-29 05:50] VITALS: BP 100/66; PULSE 80; RESP 16; TEMP 36.6; TEMP 36.7; O2SAT 97
[2023-09-29] MEDS: lanolin oint 7 gm 1 APPLIC TOPICAL (08:14)
[2023-09-29] MEDS: ibuprofen 800 mg tablet PO (08:14)
[2023-09-29] MEDS: docusate sodium 100 mg Capsule PO (08:14)
--- NOTE | 2023-09-29 09:50 | ANE.PACU2 ---
Inpatient post-anesthesia follow up: Airway intact: Yes Vital signs: Temperature 98.0 F Pulse Rate 80 Respiratory Rate 16 Blood Pressure 100/66 Pulse Oximetry 97 Oxygen Delivery Me thod Room Air Oxygen Flow Rate Fraction of Inspir ed Oxygen Hydration adequate: Yes Nausea and vomiting: Yes Pain level: 1 Mental status: Baseline Epidural Start/End: Epidural Start Date: 09/27/23 Epidural Start Time: 06:40 Epidural End Date: 09/27/23 Epidural End Time: 12:35
[2023-09-29 10:00] VITALS: BP 120/80; PULSE 87; RESP 17; O2SAT 97
--- NOTE | 2023-09-29 12:23 | PM.DCS ---
Discharge Providers Date of Admission: 09/27/23 06:21 Date of Discharge: September 29, 2023 Attending Provider at Admission: Alfredo Toledo MD Attending Provider at Discharge: Alfredo Toledo MD Primary Care Provider: Loreto Bowers MD Diagnoses at Discharge Discharge Diagnosis (1) Spontaneous vaginal delivery: Status: Acute Reason for Visit Reason for Visit: contractions, possible ROM Hospital Course Hospital Course This is a 32-year-old G2 now P2 who presented with spontaneous rupture of membranes at 39 weeks 2 days gestation. She had a normal spontaneous vaginal delivery of a viable male . She has done well . She is ambulating, tolerating a regular diet, has decreased vaginal bleeding. Physical Exam Narrative: Alert sitting up in bed with the , heart regular rate and rhythm, lungs clear to auscultation bilaterally, abdomen is soft and nontender, fundus is firm, extremities have some edema but no calf tenderness. Urinary Catheter Management: Pink Latex: Cath Placed During This Visit: yes, but has since been removed by the nurse Reason for Continuing Indwelling Catheter: Decision to DC Catheter Urinary Catheter Date of Insertion: 09/27/23 Urinary Catheter Time of Insertion: 09:15 Date Urinary Catheter Removed: 09/27/23 Time Urinary Catheter Discontinued: 11:35 Discharge Data Studies Completed and Pending Laboratory Results WBC 11.18 10^3/uL (3.29-11.43) 09/28/23 00:54 RBC 4.27 10^6/uL (3.85-5.65) 09/28/23 00:54 Hgb 13.30 g/dL (11.27-16.99) 09/28/23 00:54 Hct 38.4 % (36-47) 09/28/23 00:54 MCV 89.9 fl (85-98) 09/28/23 00:54 MCH 31.1 pg (27-33) 09/28/23 00:54 MCHC 34.6 g/dL (30-55) 09/28/23 00:54 RDW 14.7 % (12.1-15.1) 09/28/23 00:54 Plt Count 174 10^3/cmm (157-399) 09/28/23 00:54 MPV 11.3 fL (7.4-10.4) H 09/28/23 00:54 Neut % (Auto) 69.6 % 09/27/23 05:40 Lymph % (Auto) 22.6 % 09/27/23 05:40 [place] % (Auto) 5.3 % 09/27/23 05:40 Eos % (Auto) 1.9 % 09/27/23 05:40 Baso % (Auto) 0.3 % 09/27/23 05:40 Neut # (Auto) 6.30 10^3/uL (1.8-7.7) 09/27/23 05:40 Lymph # (Auto) 2.1 10^3/uL (0.8-4.8) 09/27/23 05:40 [place] # (Auto) 0.5 10^3/uL (0.2-0.9) 09/27/23 05:40 Eos # (Auto) 0.2 10^3/uL (0.0-0.8) 09/27/23 05:40 Baso # (Auto) 0.0 10^3/uL (0.0-0.1) 09/27/23 05:40 Nucleated RBC % (auto) 0 % 09/27/23 05:40 Nucleated RBCs # 0.0 /100WBC 09/27/23 05:40 POC Glucose 97 mg/dL (70-110) 09/27/23 06:00 Blood Type B Positive 09/27/23 05:40 Rho(D) Type Rh positive 09/27/23 05:40 Antibody Screen Negative 09/27/23 05:40 Vitals Last Vital Signs Temp 98.0 F 09/29/23 05:50 Pulse 87 09/29/23 10:00 Resp 17 09/29/23 10:00 BP 120/80 09/29/23 10:00 Pulse Ox 97 09/29/23 10:00 O2 Del Method Room Air 09/29/23 10:00 Discharge Plan Discharge Patient Disposition: Home Condition: Stable Prescriptions: Continued prenat.vits,shauna,[id number] Tablet 1 tab PO DAILY Discharge Orders: Discharge Order (Routine); Ordered 09/29/23 Ordered By: Loreto Bowers Discharge Diet: Usual diet Discharge Activity: Limit activity as instructed Patient Instructions: Opioid Safety Activity Restrictions/Additional Instructions: Nothing per vagina for 6 weeks Discharge Attestations Time Spent in Discharge Care*: less than 30 min Quality Metrics Clinical Quality Measures [ No reported AMI, CVA or VTE this stay] Coding Level of Care Code Acute Code for Chg Fwd Diagnoses Spontaneous vaginal delivery O80
[2023-09-29 13:09] VITALS: BP 126/82; PULSE 85; RESP 17; TEMP 36.6; O2SAT 98
[2023-09-29 14:38] VITALS: BP 126/82; PULSE 85; RESP 17; TEMP 36.6; O2SAT 98
== END 2023-09-29 14:38 | disposition home or self-care (01) | DRG 807 ==
LOC: OPOB 06:21 → OBGYN 06:21
PROVIDERS: Admitting Provider Family Medicine; PCP Family Medicine; Visit Provider Family Medicine
DX: O24.420 Gestational diabetes mellitus in childbirth, diet controlled (principal); Z37.0 Single live birth; O70.1 Second degree perineal laceration during delivery; Z3A.39 39 weeks gestation of pregnancy
CPT/HCPCS: 36415; 36416; 51702; 59025; 59409; 82962; 85025; 85027; 86850; 86900; 96374; 98960; 99211; J2590; J2795; J3010; J7120; J7121

== ENCOUNTER 2025-02-06 19:42 | Emergency (ER) | payer OTHER, SELFPAY ==
--- OUTSIDE RECORDS SUMMARY | 2021-10-25 02:00 | XMS_ITS | Continuity of Care Document ---
Author Organization [facility] Address [id number] [address] Phone Care Team Providers Care Quality Compliance Manager Name Role Phone Contreras Ng MD Unavailable Unavailable Problems Condition Type Effective Dates (start - stop) Clini shauna Status Comments No Known Problems Procedures Procedure Date Finalize Template Workaround No Charge IMMUNIZATION ADMIN, EACH ADD TDAP VACCINE >7 IM IMMUNIZATION ADMIN FLU VAC NO PRSV 4 WALT 6 Months+ 022 Finalize Template Workaround Immigration Physical CHLAMYDIA/GONNORRHEA TRICHOMONAS VAGINALIS AMPLIF Quantiferon-TB RPR Advance Directives Directive Yes / No Effective Date File Name No Information Encounters Encounter Description Practice Location Reason(s) For Visit Diagnoses Date Provider Providers Copied on Encounter [facility], [id number], [id number], [place] tel:[phone] [facility] Completing Immigration Paperwork (chief complaint) Encounter for other administrative examinations 2 Hernandez Chairez. [address], [place], [id number] , [place]. tel:[phone] Referring Provider: Contreras Ng, [address] [place], [address] . tel:[phone] [facility], [id number] [facility], [place], [place], [id number], [place] tel:[phone] [facility] Immigration Physical (chief complaint) History and physical examination, immigration 2 Hernandez Chairez. [address], [place], [id number] , [place]. tel:[phone] Referring Provider: Contreras Ng, [address] [place], [address] . tel:[phone] Family History Family Member Type Diagnosis Age At Onset No Information Immunizations Vaccine Date Status Comments Tdap (7 yrs and older) administered Note: Patient tolerated procedure wellNo reaction while in clinic ; Source: New Immunization Record Flu Vaccine 6 Months and older administered Note: Patient tolera melanie procedure wellMp reaction while in clinic ; Source: New Immunization Record Payers Payer name Insurance type Covered republican ID Authoriza tion(s) No Information Social History Type Description Quantity Date Captured Comments Alcohol Use Details Unknown Caffeine Use Details Unknown Tobacco Use Status No Information Smoking Status No Information Sex Female Chief Complaint And Reason For Visit From encounter dated '10/25/2021 07:00'. Completing Immigration Paperwork (chief complaint). Description: Pt presents for f/u immigration physical, pt denies any new concerns. Reason For Referral Reason For Referral No Information History Of Present Illness Encounter Date Complaint History Of Prese nt Illness Completing Immigration Paperwork Pt presents for f/u immigration physical, pt denies any new concerns. Immigration Physical Patient pre sents for immigration physical, see form I-693 for details. No other concerns today. Functional Status Date Functional Assessmen t No Information Instructions Date Instruction Additional Infor dc Form I-693 completed , no further follow-up needed, see scanned form for details. Related to Encounter for other administrative examinations Will draw Quantifero n-TB, RPR and urine GC, Pt will need to finish COVID vaccine series (need 2nd injection). Will contact pt when results are available. Related to History and physical examination, immigration Assessments Type Assessment Date assessment History and physical examination , immigration Patient Care Teams Name Effective Dates (start - stop) Status Members No Information
[2025-02-06 19:49] VITALS: BP 104/71; PULSE 85; RESP 18; TEMP 36.8; O2SAT 98; BMI 25.3
--- OUTSIDE RECORDS SUMMARY | 2025-02-06 19:52 | XMS_ITS | Data Portability ---
Author Organization HUMBERTO Silver [facility], [facility] Address [address] [facility] [address] [place] [address] Care Team Providers Care Sock Examiner Name Role Phone LORETO HERNANDEZ Primary Care Provider Unavailabl e Assessment No assessment recorded. Plan of Treatment Reminders Order Date Submit Date Provider Last Modified By Organization Details Last Modified Time Details Appointments ULTRASO UND 2024 01:45P M ULTRASOUND Not available Not available Not available BarrROB 2024 03:15P M Loreto Hernandez MD Not available Not available Not available Lab pregnan cy test, urine 2024 025 [email or web address] [facility] ([facility]), [address] [place] [address], [phone], 01/26/2025 14:02:20 BMP, serum or plasma 2024 025 Maraquia [facility], [address] [place] [address], [address] [place], [address], 08/13/2024 10:47:36 hemoglo bin A1C/hem oglobin total, QN, blood 2024 025 [facility], [address] [place] [address], [address], [place], [address], 08/12/2024 10:14:30 HbA1c (hemogl obin A1c), blood 2023 024 [email or web address] [facility] ([facility]), [address] [place] [address], [phone], 10/03/2024 18:57:47 Referral None recorde d. Procedures None recorde d. Surgeries None recorde d. Imaging US, obstetr ic, 1st trimest er 2024 025 [email or web address] [facility] ([facility]), [address] [facility], [place], [address], 01/20/2025 13:07:32 Medication Orders Prenata l Vitamin 27 mg iron-80 [address] mcg tablet [address] [facility] ([place], [place]Pharmacy #[id number], [address] [facility] [address], [place], [address], 01/18/2025 14:32:09 Patient TargetsNo targets recorded. Patient InstructionsNo instructions recorded. Reason for Referral None Reported. Results Created Date Observation Date Name Description Value Unit Range Abnormal Flag Note LastModifiedBy Organization Detail LastModifiedTime 09/04/19 24 09/07/2023 STREP TOCOC CUS, GROUP B CULTU RE streptococcu s, group B culture SEE NOTE STREP TOCOC CUS, GROUP B CULTU RE Micro Numbe r: [id number] Test Statu s: Final Speci men Sourc e: Vagin al/an orect al Speci men Quali ty: Adequ ate Resul t: No group B Strep tococ cus isola melanie Note per CDC guide lines optim al recov adalberto is achie girma by swabb ing both the lower vagin a and rectu m (thro ugh the anal sphin cter) . Not Available [facility] [address] , [place], [address], 09/07/2023 07:56:56 08/12/1908/12/2024 HBA1C hemaglobin A1C 5.2 4.2-6. 5 Not Available [facility] [address], [place], [address], 08/12/2024 10:14:30 08/12/19 25 08/13/2024 BASIC METAB OLIC PANEL glucose 94 mg/dL 65-99 normal Fasti ng refer ence inter melody Not Available [place] [address] [place], [address], 08/13/2024 10:47:36 08/12/19 25 08/13/2024 BASIC METAB OLIC PANEL urea nitrogen (BUN) 7 mg/dL 7-25 normal Not Available [address] [place], [address], 08/13/2024 10:47:36 08/12/19 25 08/13/2024 BASIC METAB OLIC PANEL creatinine 0.65 mg/dL 0.50-0 .97 normal Not Available [facility] [place] [address], [address], 08/13/2024 10:47:36 08/12/19 25 08/13/2024 BASIC METAB OLIC PANEL eGFR 121 mL/mi n/1.7 3m2 > or = 60 normal Not Available [address], [address], 08/13/2024 10:47:36 08/12/19 25 08/13/2024 BASIC METAB OLIC PANEL BUN/creatini ne ratio SEE NOTE: (calc ) 6-22 Not Repor melanie: BUN and Creat inine are withi n refer ence range . Not Available [place] [address] [place], [address], 08/13/2024 10:47:36 08/12/1908/13/2024 BASIC METAB OLIC PANEL sodium 139 mmol/ L 135-14 6 normal Not Available [place] [address] [place], [address], 08/13/2024 10:47:36 08/12/19 25 08/13/2024 BASIC METAB OLIC PANEL potassium 4.1 mmol/ L 3.5-5. 3 normal Not Available [place] [address] [place], [address], 08/13/2024 10:47:36 08/12/19 25 08/13/2024 BASIC METAB OLIC PANEL chloride 104 mmol/ L 98-110 normal Not Available [address], [address], 08/13/2024 10:47:36 08/12/19 25 08/13/2024 BASIC METAB OLIC PANEL carbon dioxide 28 mmol/ L 20-32 normal Not Available [place] [address] [place], [address], 08/13/2024 10:47:36 08/12/19 25 08/13/2024 BASIC METAB OLIC PANEL calcium 9.4 mg/dL 8.6-10 .2 normal Not Available [place] [address] [place], [address], 08/13/2024 10:47:36 01/19/20 25 01/18/2025 pregn zoran test, urine HCG positi ve Not Available [facility] ([facility]) [address] [place] [address], [phone], 01/18/2025 14:15:57 Result Notes None recorded. Problems Name Problem SNOMED Code Status Onset Date Resolution Date Notes Provider Name and Address Organization Details Recorded Time Gestational diabetes mellitus 80715693 Active MANDA graff [facility], RobLGracia 4 16:52:57 Gestational diabetes mellitus 29080355 Completed MANDA graff [facility], GregoriaCLadi 4 16:52:57 57273621 Completed 202208/10/2024 CLARY graff [facility], [place] 5 14:10:28 94378799 Active 2024 [facility] 14:10:28 Problem Notes None recorded. Procedures Surgical History Date Name Laterality Status Provider Name and Address Organization Details Recorded Time 03/18/2023 Date of Last Pap Smear completed CLARY MCNAIR [facility], [facility] 04/17/2023 15:04:47 Imaging Results None recorded. Procedure Notes None recorded. Medical Equipment None Reported. Allergies No known drug allergies Medications Name Sig Start Date Stop Date Status Note LastModified by Organization Details LastModified Time OneTouch Ultra Blue Test Strips active Not Available Not Available Not Available ondansetron 8 mg disintegrati ng tablet 1 tab po TID 30 min prior to meals prn n/v 08/07 completed Not Available Not Available Not Available amoxicillin 875 mg tablet TAKE 1 TABLET BY MOUTH TWICE DAILY UNTIL GONE 03/18 completed Not Available Not Available Not Available OneTouch Ultra Test strips TEST 4 TIMES A DAY 11/09 completed Not Available Not Available Not Available metformin ER 500 mg tablet,exten ded release 24 hr TAKE 1 TABLET BY MOUTH EVERY DAY FOR 30 DAYS 11/09 completed Not Available Not Available Not Available nitrofuranto in monohydrate/ macrocrystal s 100 mg capsule TAKE 1 CAPSULE BY MOUTH EVERY 12 HOURS FOR 7 DAYS 09/04 completed Not Available Not Available Not Available Plus 29 mg iron-1 mg tablet Take 1 tablet every day by oral route for 30 days. 08/10 completed Not Available Not Available Not Available Vitamin 27 mg iron-800 mcg tablet Take 1 tablet every day by oral route. 2024 active Not Available Not Available Not Avai lable M-Kirk Plus 27 mg iron-1 mg tablet TAKE 1 TABLET BY MOUTH EVERY DAY active Not Available Not Available No t Available OneTouch Ultra2 Meter USE DIRECTED . 11/09 completed Not Available Not Available Not Available OneTouch Delica Plus Lancet 30 gauge USE DIRECTED . 11/09 completed Not Available Not Available Not Available Vitals Date Recorded Body height Body mass index (BMI) Body weight Body temperature Oxygen saturation Oxygen saturation in Arterial blood by Pulse oximetry Heart rate Systolic And Diastolic Provider Name and Address Organization Details Last Updated DateTime 5 167.64 cm 28.4 kg/m2 66578.2 6 g 97.3 [degF] 98 % 98 % 102 /min 110/70 mm[Hg] [facility] 5 16:30:49 Date Recorded Body height Body mass index (BMI) Body weight Body temperature Oxygen saturation Oxygen saturation in Arterial blood by Pulse oximetry Heart rate Systolic And Diastolic Provider Name and Address Organization Details Last Updated DateTime 4 167.64 cm 30.8 kg/m2 27463.1 4267 g 96.9 [degF] 97 % 97 % 106 /min 100/70 mm[Hg] CLARY [facility] 4 13:56:58 Date Recorded Body height Body mass index (BMI) Body weight Body temperature Oxygen saturation Oxygen saturation in Arterial blood by Pulse oximetry Heart rate Systolic And Diastolic Provider Name and Address Organization Details Last Updated DateTime 4 167.64 cm 30.8 kg/m2 85499.1 4267 g 97.1 [degF] 98 % 98 % 71 /min 110/74 mm[Hg] [facility] 4 15:43:22 Date Recorded Body height Body mass index (BMI) Body temperature Oxygen saturation Oxygen saturation in Arterial blood by Pulse oximetry Heart rate Systolic And Diastolic Provider Name and Address Organization Details Last Updated DateTime 4 167.64 cm 27.3 kg/m2 97.7 [degF] 98 % 98 % 84 /min 90/60 mm[Hg] CLARY [facility] 4 16:20:52 Date Recorded Body weight Provider Name an d Address Organization Details Last Updated DateTime 11/10/2023 85792.47444 g [facility] 11/10/2023 16:53:04 Date Recorded Body height Body mass index (BMI) Body weight Body temperature Oxygen saturation Oxygen saturation in Arterial blood by Pulse oximetry Heart rate Systolic And Diastolic Provider Name and Address Organization Details Last Updated DateTime 5 167.64 cm 25.7 kg/m2 98731.1 9 g 97.9 [degF] 98 % 98 % 96 /min 115/65 mm[Hg] CLARY LAKHWINDER MCNAIR [facility] 14:10:23 Social History Question Answer Notes LastModified by Organizat Cle[employer] Details LastModified Time Tobacco Smoking Status Never Smoker MANDA graff [facility] 02/12/2023 14:44:20 If You Are , What Was Your Level Of Alcohol Consumption Prior To ? None [email or web address] Information not available 02/12/2023 Sex: Unknown Functional Status Question Answer Note LastModified by Organizat ion Details LastModified Time Do you use any illicit or recreational drugs? No Information not available 02/12/2023 What is your level of alcohol consumption? None Information not available 02/12/2023 Mental Status None recorded. Family History Relationship Description Onset Age of this Age Resolved Age Notes LastModified by Organization Details LastModified Time Father No current problems or disability [email or web address] Not available 11/2022 15:05:15 Mother No current problems or disability [email or web address] Not available 11/2022 15:05:15 Medical History Condition Response Coronary Artery Disease N Other N Gout N Kidney Stones N Blood Diseases N Hyperthyroidism N Breast Cancer N Blood Transfusion N Depression N Hypothyroidism N Lung Disease N COPD N Defects or Inherited Disease N Developmental or Behavioral Disorders N Breast Problem N Difficulty Swallowing N Anesthesia Complications N Meniere's disease N Anxiety Disorder N Muscle, Joint, or Bone Problems N Vision or Eye Problems N Arthritis N Polyps N Infertility N Cancer N Varicosities N Stroke N Endometriosis N Bladder or Kidney Problems N High Cholesterol N Liver Disease N Fibromyalgia N Headaches N Kidney Disease N Allergies/Hayfever N Heart Problems N Ear or Hearing Problems N Hospitalizations N Thyroid Problems N GI Problems N ADD/ADHD N Skin Problems N Eating Disorder N Anemia N Constipation N Mental Illness N Ovarian Cancer N Diabetes N Bedwetting N Seizures/Epilepsy N Tuberculosis N Eczema N Diverticulitis N Abuse/Domestic Violence N Asthma N Reflux/GERD N Hepatitis N Heart Disease N Pulmonary Embolism N Pre-Eclampsia N Hypertension N Chronic Ear Infections N Osteoporosis N Chicken Pox N Autism Spectrum Disorder (ASD) N Thrombophilias N Gynecological History Statement/Question Response Abnormal Pap N Date of Last Pap Smear 03/18/2023 Obstetrics History GPAL:G 4 P 2 0 1 2 Type Value Full Term 2 Spontaneous 1 Living 2 Total 4 Immunizations Vaccine Type Date Status Note Provider Nam e and Address Organization Details Recorded Time Tdap 2 completed CLARY KEANE MCNAIR [facility] 04/17/2023 15:03:07 Influenza, split virus, trivalent, preservative 2 completed CLARY LAKHWINDER graff [facility] 04/17/2023 15:03:07 Tdap 4 completed Not Available [facility] 01/18/2025 13:57:34 RSV, bivalent, protein subunit RSVpreF, diluent reconstituted, 0.5 mL, PF 4 completed Not Available [facility] 01/18/2025 13:57:34 Past Encounters Encounter ID Performer Location Encounter Start Date Encounter Closed Date Diagnosis/Indication Diagnosis SNOMED-CT Code Diagnosis ICD10 Code Diagnosis Note [id number] Loreto Hernandez MD [facility] ([facility]) [address] [place] [phone] 02/12/2023 14:37:28 02/12/2023 16:01:12 Normal in multigravida 1625420575 84362 Z34.81 I reviewed what to avoid in and the plan of care. Nausea and vomiting 1693 1999 R11.2 [id number] Loreto Hernandez MD [facility] ([facility]) [address] [place] [id number] 03/11/2023 15:18:21 03/12/2023 11:17:56 [id number] Loreto Hernandez MD [facility] ([facility]) [address] [place] [id number] 5 03/18/2023 14:34:11 03/18/2023 17:37:40 Gestation period, 11 weeks 55449232 Z3A.11 Normal pre gnancy in multigravida 1380730386 22624 Z34.81 [id number] Loreto Hernandez MD [facility] ([facility]) [address] [place] [address] [id number] 5 04/17/2023 14:38:10 04/27/2023 17:10:34 Gestation period, 16 weeks 45756538 Z3A.16 Normal pre gnancy in multigravida 1422896373 46365 Z34.81 [id number] Loreto Hernandez MD [facility] ([facility]) [address] [place] [id number] 5 05/19/2023 14:29:05 05/19/2023 15:20:01 Gestation period, 20 weeks 87977588 Z3A.20 Normal pre gnancy in multigravida 3128237414 37384 Z34.81 [id number] Loreto Hernandez MD [facility] ([facility]) [address] [place] [id number] 5 05/19/2023 13:50:11 05/19/2023 19:05:25 [id number] Loreto Hernandez MD [facility] ([facility]) [address] [place] [id number] 5 06/19/2023 14:16:35 06/22/2023 13:05:22 Normal in multigravida 8007244512 72294 Z34.82 Gestation period, 25 weeks 46327791 Z3A.25 [id number] Loreto Hernandez MD [facility] ([facility]) [address] [place] [address] [id number] 5 07/10/2023 13:51:47 07/10/2023 15:11:41 Gestation period, 28 weeks 67159273 Z3A.28 Normal pre gnancy in multigravida 4616035652 29966 Z34.82 [id number] Loreto Hernandez MD [facility] ([facility]) [address] [place] [id number] 5 07/24/2023 14:42:11 07/24/2023 17:23:29 Gestation period, 30 weeks 97835677 Z3A.30 57891504 Z33.1 Gestationa l diabetes mellitus 85295013 O24.419 new dx. discussed 4 times daily testing and given log. instructed to bring glucose monitor to jeanine Elizabeth for teaching. I briefly discussed diabetic diet. High risk 4720 0007 O09.93 GDM. [id number] FER JIMENEZ [facility] ([facility]) [address] [place] [address] [id number] 5 07/30/2023 09:49:50 07/30/2023 14:01:34 Gestational diabetes mellitus 47035467 O24.419 Will start monitoring today. [id number] Lorteo Hernandez MD [facility] ([facility]) [address] [place] [id number] 5 08/07/2023 14:43:56 08/07/2023 17:53:44 Gestation period, 32 weeks 9454666 Z3A.32 Normal pre gnancy in multigravida 3935007090 83900 Z34.82 Gestationa l diabetes mellitus 12597911 O24.001 [id number] Loreto Hernandez MD [facility] ([facility]) [address] [place] [address] [id number] 5 08/07/2023 14:44:41 08/07/2023 17:56:44 [id number] Loreto Hernandez MD [facility] ([facility]) [address] [place] [address] [id number] 5 08/21/2023 14:36:17 08/21/2023 15:36:37 Gestation period, 34 weeks 88335285 Z3A.34 Gestationa l diabetes mellitus 95629019 O24.419 several sugars out of range, recommende d starting metformin, they were trying diet control. Normal pre gnancy in multigravida 8387151811 59144 Z34.82 Acute urin nisha tract infection 073938021 N39.0 [id number] Loreto Hernandez MD [facility] ([facility]) [address] [place] [address] [id number] 5 09/04/2023 15:01:29 09/04/2023 16:04:03 Gestation period, 36 weeks 22658153 Z3A.36 Gestationa l diabetes mellitus 02553542 O24.419 several sugars out of range, recommende d starting metformin, they were trying diet control. Normal pre gnancy in multigravida 8782363365 66218 Z34.82 [id number] Loreto Hernandez MD [facility] ([facility]) [address] [place] [address] [place] [address] 09/04/2023 14:25:48 09/08/2023 09:09:28 Gestational diabetes mellitus 32270110 O24.419 several sugars out of range, recommende d starting metformin, they were trying diet control. [id number] Loreto Hernandez MD [facility] ([facility]) [address] [place] [address] [id number] 5 09/11/2023 13:48:49 09/11/2023 14:35:11 Gestation period, 37 weeks 44393507 Z3A.37 Normal pre gnancy in multigravida 5544647322 71958 Z34.82 Gestationa l diabetes mellitus 73569238 O24.419 almost all sugars in range. she didnt start metformin, has only been doing diet. [id number] Loreto Hernandez MD [facility] ([facility]) [address] [place] [id number] 5 09/18/2023 15:35:24 09/18/2023 16:34:39 Gestation period, 38 weeks 05067586 Z3A.38 Gestationa l diabetes mellitus 23408294 O24.419 her sugar log Normal pre gnancy in multigravida 7884880550 73492 Z34.82 [id number] Loreto Hernandez MD [facility] ([facility]) [address] [place] [id number] 5 11/10/2023 16:16:53 11/20/2023 21:41:05 state 82579857 Z39.2 Having some right upper leg/hip pain. Gestationa l diabetes mellitus 64188742 O24.419 they are concerned for dm cause it runs in her family. check HgA1C in 2 months. [id number] Loreto Hernandez MD [facility] ([facility]) [address] [place] [id number] 5 08/10/2024 16:23:36 08/13/2024 06:05:56 Past history of gestational diabetes mellitus 554047689 Z86.32 Return to clinic fasting for lab work 08/10/2024 Adult [facility] th examination 278489102 Z00.00 [id number] Loreto Hernandez MD [facility] ([facility]) [address] [place] [address] [place] [address] 01/18/2025 13:57:17 01/20/2025 13:07:32 Amenorrhea 46294827 N91.2 Gestation period, 5 weeks 09803856 Z3A.01 I reviewed what to avoid in and the plan of care. Health Concerns Section Related Observation LastModified by Organization Detai ls LastModified Time None Recorded Concern Status LastModified by Organization Details LastModified Time None Recorded Advance Directives Directive None Recorded Payers Insurance Date Sequence Insurance Name Policy Number Policy Atkins Covered Member ID Atkins Member ID Guarantor Name 02/05/2025 1 [employer] [place] Laura Thomas [id number] Laura Thomas 08/10/2024 1 [place] [id number] Laura Bobbyyuki [id number] Laura Bobbyyadira Notes Date Note Type Note Provider Name and Address Organization Details Recorded Time 09/11/2023 text/html ob routineRep orted by PatientHPIFor associated symptoms, patient reportsedemabut reportsno abdominal pain,no cramping,no contractions,normal movement,no bleeding,no nausea,no emesis,no constipation,no headache, andno dizziness.ROS as noted in the HPI Loreto Hernandez MD [address] [place] [address], [phone], [facility] 09/14/2023 11:17:49 09/18/2023 text/html ob routineRep orted by PatientHPIFor associated symptoms, patient reportsno abdominal pain,no cramping,no contractions,normal movement,no bleeding,no dysuria,no nausea,no emesis,no constipation,no headache, andno dizziness. Loreto Hernandez MD [address] [place] [address], [phone], [facility] 09/20/2023 17:13:46 11/10/2023 text/html VisitReported by PatientHPIFor context, patient reportsno complications,no labor complications, andgood support from partner/family. For associated symptoms, patient reportsno abnormal bleeding,no pelvic pain,no constipation, andno dysuria. For contraception plan, patient reportsdeclines contraception.ROS as noted in the HPI right hip pain after sitting in bed for a while, needs help getting up.declines control.mood is good, no problems there. Loreto Hernandez MD [address] [place] [address], [phone], [facility] 11/16/2023 10:42:26 08/10/2024 text/html Annual WellnessReported by PatientSocial/Behavior al HistoryFor diet and nutrition, patient reportshealthy diet. For fracture risk, patient reportsno sudden unexplained fractures. For physical activity, patient reportsgood physical condition. For additional lifestyle factors, patient reportsno tobacco useandno alcohol intake.Mental Status:For depression risk, patient reportsnever feels sad, empty, or tearful. Loreto Hernandez MD [address] [place] [address], [phone], [facility] 08/11/2024 12:22:22 01/18/2025 text/html ROS as noted in the HPI Loreto Hernandez MD [address] [place] [address], [phone], [facility] 01/19/2025 17:59:33 OBGyn Episode Ob Episode Information Episode Created Date Number of Fetuses Patient Bloodtype Patient rh Status Prepregnancy Weight lbs Domestic Partner Domestic Partner Phone Father Name Coding Compliance Auditor Status 02/13/20 23 1 B Positive Uche Borrero CLOSED Fetus Data First Name Last Name Admitted to NICU Weight (g) Sex Living Outcome Pediatric Complications Fetus ID Race Codes Race Delivery Type Misaelkathy Perry kenny false [phone] M 1664 VAGINAL Problems Problem Notes Problem Name Start Date End Date Resolution Snomed Code Not e Gestational diabetes mellitus 57690844 Joby Calculation Initial Joby Date Initial Exam Date Initial Exam Provider Initial Ultrasound Date Last Menstrual Period Date Ultra Sound Weeks Gestation 10/02/2023 02/12/2023 03/11/2023 12/26/2022 11 Eighteen To Twenty Week Joby Update Ultra Sound Date Fundal Height At Umbil Quickening Date Ultra Sound Latest Weeks Gestation Final Joby Confirmed By Final Joby Confirmed Date Final Joby Date Ultra Sound Latest Days Gestation 0 [email or web address] 03/18/2023 10/02/19 24 0 Pre- Flowsheet Flowsheet Date 02/12/2023 Delgado Score Blood Edema Fundus Height Fundus Units Glucose Ketones Leukocytes Nitrite Labor Signs Protein Cervic Dilation Cervic Effacement Cervic Station Type Weight in lbs Pre/Post Dialysis Refused With clothes 0.0 BP Diastolic BP Location Tested BP Systolic BP Type R arm sitting Fetus Heart Rate Present Fetus Movement Comments Flowsheet Date 03/11/2023 Delgado Score Blood Edema Fundus Height Fundus Units Glucose Ketones Leukocytes Nitrite Labor Signs Protein Cervic Dilation Cervic Effacement Cervic Station Type Weight in lbs Pre/Post Dialysis Refused BP Diastolic BP Location Tested BP Systolic BP Type Fetus Heart Rate Present Fetus Movement Comments Flowsheet Date 03/18/2023 Delgado Score Blood Edema Fundus Height Fundus Units Glucose Ketones Leukocytes Nitrite Labor Signs Protein Cervic Dilation Cervic Effacement Cervic Station Type Weight in lbs Pre/Post Dialysis Refused With clothes 158.994152468506 BP Diastolic BP Location Tested BP Systolic BP Type 76 L arm 122 sitting Fetus Heart Rate Present A 165 Fetus Movement Comments Flowsheet Date 04/17/2023 Delgado Score Blood Edema Fundus Height Fundus Units Glucose Ketones Leukocytes Nitrite Labor Signs Protein Cervic Dilation Cervic Effacement Cervic Station 18 trace trace trace Type Weight in lbs Pre/Post Dialysis Refused Weight 167.204700857635 BP Diastolic BP Location Tested BP Systolic BP Type 70 115 Fetus Heart Rate Present A 155 Fetus Movement Comments Flowsheet Date 05/19/2023 Delgado Score Blood Edema Fundus Height Fundus Units Glucose Ketones Leukocytes Nitrite Labor Signs Protein Cervic Dilation Cervic Effacement Cervic Station Type Weight in lbs Pre/Post Dialysis Refused BP Diastolic BP Location Tested BP Systolic BP Type Fetus Heart Rate Present Fetus Movement Comments Flowsheet Date 05/19/2023 Delgado Score Blood Edema Fundus Height Fundus Units Glucose Ketones Leukocytes Nitrite Labor Signs Protein Cervic Dilation Cervic Effacement Cervic Station 20 none none neg Type Weight in lbs Pre/Post Dialysis Refused Weight 177.682413821797 BP Diastolic BP Location Tested BP Systolic BP Type 70 120 Fetus Heart Rate Present A 145 Fetus Movement Comments Boy. Wants a circ. Flowsheet Date 06/19/2023 Delgado Score Blood Edema Fundus Height Fundus Units Glucose Ketones Leukocytes Nitrite Labor Signs Protein Cervic Dilation Cervic Effacement Cervic Station 25 none trace Negative neg Type Weight in lbs Pre/Post Dialysis Refused With clothes 186.949367248236 BP Diastolic BP Location Tested BP Systolic BP Type 76 R arm 124 sitting Fetus Heart Rate Present A 148 Fetus Movement Comments swelling - generalized Flowsheet Date 07/10/2023 Delgado Score Blood Edema Fundus Height Fundus Units Glucose Ketones Leukocytes Nitrite Labor Signs Protein Cervic Dilation Cervic Effacement Cervic Station 29 trace trace trace Type Weight in lbs Pre/Post Dialysis Refused With clothes 190.082030660136 BP Diastolic BP Location Tested BP Systolic BP Type 72 103 Fetus Heart Rate Present A 150 Fetus Movement Comments Hernandez for peds. Want to talk about control after . Kick counts gone over and hand out given. Flowsheet Date 07/15/2023 Delgado Score Blood Edema Fundus Height Fundus Units Glucose Ketones Leukocytes Nitrite Labor Signs Protein Cervic Dilation Cervic Effacement Cervic Station Type Weight in lbs Pre/Post Dialysis Refused BP Diastolic BP Location Tested BP Systolic BP Type Fetus Heart Rate Present Fetus Movement Comments Faxed records to [facility]. Fail 1 hr gtt Flowsheet Date 07/24/2023 Delgado Score Blood Edema Fundus Height Fundus Units Glucose Ketones Leukocytes Nitrite Labor Signs Protein Cervic Dilation Cervic Effacement Cervic Station 30 none none trace Type Weight in lbs Pre/Post Dialysis Refused Weight 194.229362974094 BP Diastolic BP Location Tested BP Systolic BP Type 60 105 Fetus Heart Rate Present A 145 Fetus Movement Comments dx GDM. (failed 3hr) Flowsheet Date 07/30/2023 Delgado Score Blood Edema Fundus Height Fundus Units Glucose Ketones Leukocytes Nitrite Labor Signs Protein Cervic Dilation Cervic Effacement Cervic Station Type Weight in lbs Pre/Post Dialysis Refused Weight 195.448756452853 BP Diastolic BP Location Tested BP Systolic BP Type 60 106 Fetus Heart Rate Present Fetus Movement Comments Flowsheet Date 08/07/2023 Delgado Score Blood Edema Fundus Height Fundus Units Glucose Ketones Leukocytes Nitrite Labor Signs Protein Cervic Dilation Cervic Effacement Cervic Station 35 none trace trace Type Weight in lbs Pre/Post Dialysis Refused Weight 194.296133516745 BP Diastolic BP Location Tested BP Systolic BP Type 68 105 Fetus Heart Rate Present A 144 Fetus Movement Comments starting metformin, fastings just above normal at 100, postprandials are good, only one was 141 Flowsheet Date 08/07/2023 Delgado Score Blood Edema Fundus Height Fundus Units Glucose Ketones Leukocytes Nitrite Labor Signs Protein Cervic Dilation Cervic Effacement Cervic Station Type Weight in lbs Pre/Post Dialysis Refused BP Diastolic BP Location Tested BP Systolic BP Type Fetus Heart Rate Present Fetus Movement Comments Flowsheet Date 08/21/2023 Delgado Score Blood Edema Fundus Height Fundus Units Glucose Ketones Leukocytes Nitrite Labor Signs Protein Cervic Dilation Cervic Effacement Cervic Station 35 none 3+ trace Type Weight in lbs Pre/Post Dialysis Refused Weight 192.272981928206 BP Diastolic BP Location Tested BP Systolic BP Type 72 115 Fetus Heart Rate Present A 142 Fetus Movement Comments .She is having really bad he adaches and dizziness. RSV and TDAP RX given today. Flowsheet Date 09/04/2023 Delgado Score Blood Edema Fundus Height Fundus Units Glucose Ketones Leukocytes Nitrite Labor Signs Protein Cervic Dilation Cervic Effacement Cervic Station Type Weight in lbs Pre/Post Dialysis Refused BP Diastolic BP Location Tested BP Systolic BP Type Fetus Heart Rate Present Fetus Movement Comments Flowsheet Date 09/04/2023 Delgado Score Blood Edema Fundus Height Fundus Units Glucose Ketones Leukocytes Nitrite Labor Signs Protein Cervic Dilation Cervic Effacement Cervic Station 36 none 2+ trace Type Weight in lbs Pre/Post Dialysis Refused Weight 191.865426004671 BP Diastolic BP Location Tested BP Systolic BP Type 70 100 Fetus Heart Rate Present A 145 Fetus Movement Comments GBS done today Flowsheet Date 09/11/2023 Delgado Score Blood Edema Fundus Height Fundus Units Glucose Ketones Leukocytes Nitrite Labor Signs Protein Cervic Dilation Cervic Effacement Cervic Station 37 none trace trace Type Weight in lbs Pre/Post Dialysis Refused Weight 191.882777706256 BP Diastolic BP Location Tested BP Systolic BP Type 70 100 Fetus Heart Rate Present A 140 Fetus Movement Comments Having some mild back pain. Flowsheet Date 09/18/2023 Delgado Score Blood Edema Fundus Height Fundus Units Glucose Ketones Leukocytes Nitrite Labor Signs Protein Cervic Dilation Cervic Effacement Cervic Station 38 none none Negative neg Type Weight in lbs Pre/Post Dialysis Refused With clothes 191.084807536247 BP Diastolic BP Location Tested BP Systolic BP Type 74 L arm 110 sitting Fetus Heart Rate Present A 135 Fetus Movement Comments Flowsheet Date 11/10/2023 Delgado Score Blood Edema Fundus Height Fundus Units Glucose Ketones Leukocytes Nitrite Labor Signs Protein Cervic Dilation Cervic Effacement Cervic Station Type Weight in lbs Pre/Post Dialysis Refused Weight 169.214134855706 BP Diastolic BP Location Tested BP Systolic BP Type 60 90 Fetus Heart Rate Present Fetus Movement Comments Flowsheet Date 08/10/2024 Delgado Score Blood Edema Fundus Height Fundus Units Glucose Ketones Leukocytes Nitrite Labor Signs Protein Cervic Dilation Cervic Effacement Cervic Station Type Weight in lbs Pre/Post Dialysis Refused With clothes 176.116042411270 BP Diastolic BP Location Tested BP Systolic BP Type 70 R arm 110 sitting Fetus Heart Rate Present Fetus Movement Comments Menstrual History Last Menstrual Date Menses Monthly On Bcp Conception Prior Menses Frequency Hcg Plus Date Menarche Onset Age 0612/26/2022 Genetic Screening And Infection History Question Response Note Patient's Age Will Be 35 Years Or Older At Estim ated Date of Delivery false Thalassemia (American, [place]er, Mediterranean, Or Background): MCV < 80 false Neural Tube Defect (Meningomyelocele, Spina Bifi da, Or Anencephaly) false Congenital Heart Defect false Down Syndrome false Bert-Sachs (eg, Congregation, Cajun, [place]er-[place]ck) f alse Annette Disease false Sickle Cell Disease Or Trait () false Hemophilia Or Other Blood Disorders false Muscular Dystrophy false Cystic Fibrosis false Baraga's Chorea false Intellectual Disability/Autism false If Yes, Was Person Tested For Fragile X? false Other Inherited Genetic Or Chromosomal Disorder false Maternal Metabolic Disorder (eg, Type 1 Diabetes , PKU) false Patient Or Baby's Father Had A Child With Defects Not Listed Above false Recurrent Loss, Or A Stillbirth false Medications (including Suppl ements, Vitamins, Herbs, OTC Drugs), Illicit/Recreational Drugs, Alcohol false If Yes, Agent(s) And Strength/Dosage false Any Other Genetic History false Live With Someone With TB Or Exposed To TB false Patient Or Partner Has History Of Genital Herpes false Rash Or Viral Illness Since Last Menstrual Perio d false History Of STD, Gonorrhea, Chlamydia, HPV, Syphi lis false Other Infection History false History of HIV false History of Hepatitis false Prior GBS-infected child false Hemoglobinopathy Or Carrier false Other Structural Defect false Recent Travel History Outside of Country false Mental Retardation/Autism false Delivery Information Delivery Date Delivery Type Labor Anesthesia Weeks Gestation Incision Type Labor Labor Length Hrs Delivered By Post Complications Tubal Sterilization Discharge Date Comments 4 39.2 Loreto Hernandez MD None GDM, diet controlle d Discharge Information Feeding Method Contraceptive Method Maternal HG B and HCT Levels Ob Episode Information Episode Created Date Number of Fetuses Patient Bloodtype Patient rh Status Prepregnancy Weight lbs Domestic Partner Domestic Partner Phone Father Name Coding Compliance Auditor Status 02/13/20 23 1 CLOSED Fetus Data First Name Last Name Admitted to NICU Weight (g) Sex Living Outcome Pediatric Complications Fetus ID Race Codes Race Delivery Type M Full Term [id number] VAGINAL Joby Calculation Initial Joby Date Initial Exam Date Initial Exam Provider Initial Ultrasound Date Last Menstrual Period Date Ultra Sound Weeks Gestation 0 Eighteen To Twenty Week Joby Update Ultra Sound Date Fundal Height At Umbil Quickening Date Ultra Sound Latest Weeks Gestation Final Joby Confirmed By Final Joby Confirmed Date Final Joby Date Ultra Sound Latest Days Gestation 0 0 Menstrual History Last Menstrual Date Menses Monthly On Bcp Conception Prior Menses Frequency Hcg Plus Date Menarche Onset Age Delivery Information Delivery Date Delivery Type Labor Anesthesia Weeks Gestation Incision Type Labor Labor Length Hrs Delivered By Post Complications Tubal Sterilization Discharge Date Comments 2 Discharge Information Feeding Method Contraceptive Method Maternal HG B and HCT Levels Ob Episode Information Episode Created Date Number of Fetuses Patient Bloodtype Patient rh Status Prepregnancy Weight lbs Domestic Partner Domestic Partner Phone Father Name Coding Compliance Auditor Status 11/10/19 24 1 DELETED Joby Calculation Initial Joby Date Initial Exam Date Initial Exam Provider Initial Ultrasound Date Last Menstrual Period Date Ultra Sound Weeks Gestation 0 Eighteen To Twenty Week Joby Update Ultra Sound Date Fundal Height At Umbil Quickening Date Ultra Sound Latest Weeks Gestation Final Joby Confirmed By Final Joby Confirmed Date Final Joby Date Ultra Sound Latest Days Gestation 0 0 Menstrual History Last Menstrual Date Menses Monthly On Bcp Conception Prior Menses Frequency Hcg Plus Date Menarche Onset Age Delivery Information Delivery Date Delivery Type Labor Anesthesia Weeks Gestation Incision Type Labor Labor Length Hrs Delivered By Post Complications Tubal Sterilization Discharge Date Comments 4 Discharge Information Feeding Method Contraceptive Method Maternal HG B and HCT Levels Ob Episode Information Episode Created Date Number of Fetuses Patient Bloodtype Patient rh Status Prepregnancy Weight lbs Domestic Partner Domestic Partner Phone Father Name Coding Compliance Auditor Status 01/19/20 25 1 OPEN Fetus Data First Name Last Name Admitted to NICU Weight (g) Sex Living Outcome Pediatric Complications Fetus ID Race Codes Race Delivery Type [id number] Joby Calculation Initial Joby Date Initial Exam Date Initial Exam Provider Initial Ultrasound Date Last Menstrual Period Date Ultra Sound Weeks Gestation 01/18/2025 12/14/2024 0 Eighteen To Twenty Week Joby Update Ultra Sound Date Fundal Height At Umbil Quickening Date Ultra Sound Latest Weeks Gestation Final Joby Confirmed By Final Joby Confirmed Date Final Joby Date Ultra Sound Latest Days Gestation 0 09/21/19 26 0 Pre-kirk Flowsheet Flowsheet Date 01/18/2025 Delgado Score Blood Edema Fundus Height Fundus Units Glucose Ketones Leukocytes Nitrite Labor Signs Protein Cervic Dilation Cervic Effacement Cervic Station Type Weight in lbs Pre/Post Dialysis Refused Weight 159.748716610141 BP Diastolic BP Location Tested BP Systolic BP Type 65 115 Fetus Heart Rate Present Fetus Movement Comments Menstrual History Last Menstrual Date Menses Monthly On Bcp Conception Prior Menses Frequency Hcg Plus Date Menarche Onset Age 0612/14/2024 false Genetic Screening And Infection History Question Response Note Patient's Age Will Be 35 Years Or Older At Estim ated Date of Delivery false Thalassemia (American, [place], Mediterranean, Or Background): MCV < 80 false Neural Tube Defect (Meningomyelocele, Spina Bifi da, Or Anencephaly) false Congenital Heart Defect false Down Syndrome false Bert-Sachs (eg, Congregation, Cajun, [place]er-[place]) f alse Annette Disease false Sickle Cell Disease Or Trait () false Hemophilia Or Other Blood Disorders false Muscular Dystrophy false Cystic Fibrosis false Baraga's Chorea false Intellectual Disability/Autism false If Yes, Was Person Tested For Fragile X? false Other Inherited Genetic Or Chromosomal Disorder false Maternal Metabolic Disorder (eg, Type 1 Diabetes , PKU) false Patient Or Baby's Father Had A Child With Defects Not Listed Above false Recurrent Loss, Or A Stillbirth false Medications (including Suppl ements, Vitamins, Herbs, OTC Drugs), Illicit/Recreational Drugs, Alcohol false If Yes, Agent(s) And Strength/Dosage false Any Other Genetic History false Live With Someone With TB Or Exposed To TB false Patient Or Partner Has History Of Genital Herpes false Rash Or Viral Illness Since Last Menstrual Perio d false History Of STD, Gonorrhea, Chlamydia, HPV, Syphi lis false Other Infection History false History of HIV false History of Hepatitis false Prior GBS-infected child false Hemoglobinopathy Or Carrier false Other Structural Defect false Recent Travel History Outside of Country false Mental Retardation/Autism false Delivery Information Delivery Date Delivery Type Labor Anesthesia Weeks Gestation Incision Type Labor Labor Length Hrs Delivered By Post Complications Tubal Sterilization Discharge Date Comments Discharge Information Feeding Method Contraceptive Method Maternal HG B and HCT Levels
[2025-02-06 20:26] LABS: Hematocrit 40.4 % (36-47); Hemoglobin 14.00 g/dL (11.27-16.99); Mean Corpuscular HGB Conc 34.7 g/dL (30-55); Mean Corpuscular Hemoglobin 28.9 pg (27-33); Mean Corpuscular Volume 83.5 fl (85-98); Nucleated Red Blood Cells % 0 %; Platelet Count 248 10^3/cmm (157-399); Red Blood Count 4.84 10^6/uL (3.85-5.65); White Blood Count 10.58 10^3/uL (3.29-11.43)
[2025-02-06 21:00] VITALS: BP 110/76; PULSE 89; RESP 16; O2SAT 98
[2025-02-06 21:08] LABS: Alanine Aminotransferase 79 U/L (0-33); Albumin Level 3.9 g/dL (3.5-5.2); Alkaline Phosphatase 106 U/L (35-105); Anion Gap 16.9 (5-19); Aspartate Amino Transferase 40 U/L (0-32); Blood Urea Nitrogen 8 mg/dL (6-20); Calcium 9.2 mg/dL (8.5-10.5); Carbon Dioxide 23 mmol/L (22-29); Chloride 99 mmol/L (98-107); Creatinine Clr Calc Pharmacy 204.2091; Globulin 3.1 g/dL (1.3-4.6); Glucose 93 mg/dL (65-115); Osmolality Calculated 278 mOsm/kg (285-295); Potassium 3.9 mmol/L (3.5-5.1); Sodium 135 mmol/L (136-145); Total Protein 7.0 g/dL (6.6-8.7)
[2025-02-06 21:31] LABS: Glucose Urine UA Negative (Normal); Nitrate Urine Negative (Negative); Specific Gravity, Urine 1.009 (1.005-1.030)
[2025-02-06 21:35] LABS: Add Urine Microscopic? YES
[2025-02-06] MEDS: lidocaine 2% viscous 15 ML, aluminum-mag hydrox-simethicon 30 ML, sucralfate oral liq 1 GM PO (21:36)
--- NOTE | 2025-02-06 21:48 | USR_ITS ---
PROCEDURE INFORMATION: Exam: US First Trimester, Transabdominal Exam date and time: 02/06/2025 10:39 PM Age: 34 years old Clinical indication: complicated by abdominal or pelvic pain; Other: Suprapubic pain per order; Gestational age or lmp: 9w 0d by ultrasound; ; Additional info: Suprapubic pain, verify intrauterine LABS AND CLINICAL REPORTS: Last menstrual period start date: 12/31/2024 Gestational age (Established): 5 w 2 d Estimated due date (Established): 10/07/2025 TECHNIQUE: Imaging protocol: Real-time transabdominal obstetrical ultrasound of the maternal pelvis and a first trimester , less than 14 weeks 0 days, with image documentation. COMPARISON: US OB >= 14 weeks fetus [id number] 05/19/2023 1:38 PM FINDINGS: GESTATION: Gestation: Yolk sac measures 3.5 mm. Embryo/ cardiac activity (BPM): 176 bpm Extra-embryonic membranes/Placenta: Small ill-defined hypoechoic collections adjacent to the gestational sac measuring 1.5 x 0.3 x 0.8 cm and 1.2 x 0.8 x 1.5 cm. Amniotic/Chorionic fluid: Amniotic and extra-amniotic fluid are normal for gestational age. BIOMETRY: Gestational age (AUA): 9 weeks 0 days MATERNAL: Uterus: Unremarkable. Cervix: Cervical length measures 3.8 cm. Right ovary/adnexa: Right ovary measures 1.9 x 1.2 x 2.4 cm (3 mL). Normal waveforms on color Doppler imaging. Left ovary/adnexa: Left ovary measures 3.4 x 2.3 x 1.9 cm (7.6 mL). Normal waveforms on color Doppler imaging. Intraperitoneal space: No intraperitoneal free fluid. US/US OB <= 14 weeks fetus [id number] IMPRESSION: 1. Single live intrauterine with estimated gestational age 9 weeks 0 days. Normal heart rate. 2. Tiny mildly complex fluid collections adjacent to the gestational sac measuring up to 1.5 cm could represent small subchorionic hematomas.
--- NOTE | 2025-02-06 22:01 | ED_ITS ---
Documented by User: Bo Joy DO 02/06/25 22:51 HPI - Nausea/Vomiting/Diarrhea 2 General: Chief complaint: Nausea/Vomiting/Diarrhea Stated complaint: N\Not Eating Time Seen by Provider: 02/06/25 19:47 History of Present Illness: Laura Thomas, a woman, presents to the emergency department with complaints of nausea, vomiting, and abdominal pain that began approximately 17 days ago on January 20. The patient reports experiencing nausea and vomiting for 17 days, vomiting three times per day. This appears similar to morning sickness she experienced in previous pregnancies, though it started earlier than usual in this . She also complains of abdominal pain described as all up here in the upper abdomen. Her mentions that she has not been eating due to gastritis-like symptoms, which he describes as heartburn. The patient's urination frequency is reported as not too much, with urine described as kind of yellow. She denies chest pain, shortness of breath, constipation, or diarrhea. Her last menstrual period was reported as January 10, though there is uncertainty about the exact gestational age. She is scheduled for ultrasound in 2 days. Related Data Home Medications ?Medication ?Instructions ?Recorded ?Confirmed prenat.vits,shauna,[id number] 1 tab PO DAILY 02/11/22 09/27/23 Previous Rx's ?Medication ?Instructions ?Recorded famotidine 20 mg tablet (Pepcid) 20 mg PO BID #60 tabs 02/06/25 ondansetron 4 mg disintegrating 4 mg PO Q6H PRN nausea and 02/06/25 tablet vomiting #30 tabs Allergies Allergy/AdvReac Type Severity Reaction Status Date / Time metoclopramide Allergy ALGY-Rash Verified 09/27/23 06:48 Review of Systems 2 General: Reports: 10 or more systems reviewed and unremarkable except in HPI and below PFSH ED 2 PFSH: Surgical History Status post laparoscopic cholecystectomy (07/13/21) Social History Smoking and tobacco/nicotine status: never used tobacco/nicotine Physical Exam 2 Const: COMMON NORMALS: no acute distress, patient oriented x3, healthy appearing, alert and well nourished HENMT: COMMON NORMALS: normocephalic HEAD & SCALP: normocephalic Eye: COMMON NORMALS: EOMs intact bilaterally Neck/C-Spine: COMMON NORMALS: full ROM and supple Resp: COMMON NORMALS: normal respiratory effort, No retractions and clear to auscultation bilaterally AUSCULTATION: clear to auscultation bilaterally Cardio: COMMON NORMALS: regular rate, regular rhythm, No gallops present (Cardio) and No murmurs present (Cardio) RATE: regular rate RHYTHM: r egular rhythm GI: COMMON NORMALS: Soft to palpation PALPATION: Yes Soft to palpation, Yes Tenderness to palpation present (GI) Details: other (Suprapubic), No Guarding due to palpation present (GI) and No Rebound tenderness present Extremity: GENERAL: Yes normal exam except as noted Neuro: COMMON NORMALS: patient oriented x3 SENSORIUM/ORIENTATION: Yes alert Skin: COMMON NORMALS: no rashes or lesions noted GENERAL SKIN EXAM: no rashes or lesions noted Course 2 Vital Signs: Vital signs: Vital Signs Temperature 98.2 F 02/06/25 19:49 Pulse Rate 89 02/07/25 00:02 Respiratory Rate 16 02/07/25 00:02 Blood Pressure 102/63 02/07/25 00:02 Pulse Oximetry 99 02/07/25 00:02 Oxygen Delivery Me thod Room Air 02/06/25 22:30 MDM - Nausea/Vomiting/Diarrhea Medical Decision Making Hyperemesis gravidarum: Patient reports nausea and vomiting 3 times daily for the past 17 days, consistent with hyperemesis gravidarum. Last menstrual period reported as January 10, but hCG levels 137,000 suggest she may be further along than 5 weeks gestation. Patient has experienced similar symptoms in previous pregnancies, though onset was earlier this time. Abdominal pain reported suprapubic - Administer IV fluids for hydration - Perform urinalysis to rule out urinary tract infection - Performed a limited ultrasound to verify intrauterine Gastritis/Heartburn: Patient's reports gastritis symptoms and difficulty eating. This may be related to -induced gastroesophageal reflux or exacerbation of pre-existing gastritis. - Administered GI cocktail with minimal improvement - Educate on dietary modifications and lifestyle changes to manage symptoms Lab Data 02/06/25 20:18 02/06/25 20:18 Radiology Impressions Ultrasound 02/06/25 21:48 IMPRESSION: 1. Single live intrauterine with estimated gestational age 9 weeks 0 days. Normal heart rate. 2. Tiny mildly complex fluid collections adjacent to the gestational sac measuring up to 1.5 cm could represent small subchorionic hematomas. Laboratory Results WBC 10.58 10^3/uL (3.29-11.43) 02/06/25 20:18 RBC 4.84 10^6/uL (3.85-5.65) 02/06/25 20:18 Hgb 14.00 g/dL (11.27-16.99) 02/06/25 20:18 Hct 40.4 % (36-47) 02/06/25 20:18 MCV 83.5 fl (85-98) L 02/06/25 20:18 MCH 28.9 pg (27-33) 02/06/25 20:18 MCHC 34.7 g/dL (30-55) 02/06/25 20:18 RDW 12.5 % (12.1-15.1) 02/06/25 20:18 Plt Count 248 10^3/cmm (157-399) 02/06/25 20:18 MPV 10.7 fL (7.4-10.4) H 02/06/25 20:18 Neut % (Auto) 74.4 % 02/06/25 20:18 Lymph % (Auto) 15.9 % 02/06/25 20:18 [place] % (Auto) 5.1 % 02/06/25 20:18 Eos % (Auto) 3.7 % 02/06/25 20:18 Baso % (Auto) 0.5 % 02/06/25 20:18 Neut # (Auto) 7.88 10^3/uL (1.8-7.7) H 02/06/25 20:18 Lymph # (Auto) 1.7 10^3/uL (0.8-4.8) 02/06/25 20:18 [place] # (Auto) 0.5 10^3/uL (0.2-0.9) 02/06/25 20:18 Eos # (Auto) 0.4 10^3/uL (0.0-0.8) 02/06/25 20:18 Baso # (Auto) 0.1 10^3/uL (0.0-0.1) 02/06/25 20:18 Nucleated RBC % (auto) 0 % 02/06/25 20:18 Nucleated RBCs # 0.0 /100WBC 02/06/25 20:18 Sodium 135 mmol/L (136-145) L 02/06/25 20:18 Potassium 3.9 mmol/L (3.5-5.1) 02/06/25 20:18 Chloride 99 mmol/L (98-107) 02/06/25 20:18 Carbon Dioxide 23 mmol/L (22-29) 02/06/25 20:18 Anion Gap 16.9 (5-19) 02/06/25 20:18 BUN 8 mg/dL (6-20) 02/06/25 20:18 Creatinine 0.4 mg/dL (0.5-0.9) L 02/06/25 20:18 GFR Calculation 223.8 mL/min (90-130) H 02/06/25 20:18 Glucose 93 mg/dL (65-115) 02/06/25 20:18 Calculated Osmolality 278 mOsm/kg (285-295) L 02/06/25 20:18 Calcium 9.2 mg/dL (8.5-10.5) 02/06/25 20:18 Total Bilirubin 0.5 mg/dL (0.15-1.2) 02/06/25 20:18 AST 40 U/L (0-32) H 02/06/25 20:18 ALT 79 U/L (0-33) H 02/06/25 20:18 Alkaline Phosphatase 106 U/L (35-105) H 02/06/25 20:18 Total Protein 7.0 g/dL (6.6-8.7) 02/06/25 20:18 Albumin 3.9 g/dL (3.5-5.2) 02/06/25 20:18 Globulin 3.1 g/dL (1.3-4.6) 02/06/25 20:18 Ser , Semi-Qnt 275308.00 mIU/mL 02/06/25 20:18 Urine Color Yellow (Yellow) 02/06/25 21:20 Urine Appearance Clear (CLEAR) 02/06/25 21:20 Urine pH 6.5 (5-7) 02/06/25 21:20 Ur Specific [place] 1.009 (1.005-1.030) 02/06/25 21:20 Urine Protein Negative (Negative) 02/06/25 21:20 Urine Glucose (UA) Negative (Normal) 02/06/25 21:20 Urine Ketones Negative (Negative) 02/06/25 21:20 Urine Blood Negative (Negative) 02/06/25 21:20 Urine Nitrate Negative (Negative) 02/06/25 21:20 Urine Bilirubin Negative (Negative) 02/06/25 21:20 Urine Urobilinogen 1.0 mg/dL (Negative) 02/06/25 21:20 Ur Leukocyte Esterase Trace (Negative) A 02/06/25 21:20 Urine RBC 0-2 /hpf (0-2) 02/06/25 21:20 Urine WBC 0-5 /hpf (0-5) 02/06/25 21:20 Ur Squamous Epith Cells 0-5 /hpf (0-5) 02/06/25 21:20 Amorphous Sediment Not Reportable 02/06/25 21:20 Urine Bacteria None seen /hpf (NONE) 02/06/25 21:20 Hyaline Casts 0-4 /lpf H 02/06/25 21:20 All radiology interpretation(s) finalized by discharge Discharge Plan Discharge Patient Disposition: Home Clinical Impression: Hyperemesis gravidarum Nausea and vomiting Qualifiers: Vomiting type: unspecified Qualified Code(s): R11.2 - Nausea with vomiting, unspecified Condition: Stable Prescriptions: New ondansetron 4 mg tablet,disintegrating 4 mg PO Q6H PRN (Reason: nausea and vomiting) Qty: 30 0RF famotidine [Pepcid] 20 mg tablet 20 mg PO BID Qty: 60 0RF No Action prenat.vits,shauna,[id number] Tablet 1 tab PO DAILY Discharge Orders: Discharge ED (Routine); Ordered 02/06/25 Ordered By: Isael Hardy Referrals: Loreto Bowers MD [Primary Care Provider, Family Practice] - 1-3 days Patient Instructions: Hyperemesis Gravidarum (ED), Opioid Safety, Pain Management, Patient Portal & Rashid Instructions Activity Restrictions/Additional Instructions: Return for worsening symptoms despite treatment. Medication as directed. Call your doctor in the morning for a follow-up appointment. Print Language: Mongolian Coding Level of Care Code ED Parts Manager for [employer] F[employer] Documented by User: Isael Hardy, 02/07/25 00:47 HPI - Nausea/Vomiting/Diarrhea 2 General: Chief complaint: Nausea/Vomiting/Diarrhea Stated complaint: N\Not Eating Time Seen by Provider: 02/06/25 19:47 Related Data Home Medications ?Medication ?Instructions ?Recorded ?Confirmed prenat.vits,shauna,[id number] 1 tab PO DAILY 02/11/22 09/27/23 Previous Rx's ?Medication ?Instructions ?Recorded famotidine 20 mg tablet (Pepcid) 20 mg PO BID #60 tabs 02/06/25 ondansetron 4 mg disintegrating 4 mg PO Q6H PRN nausea and 02/06/25 tablet vomiting #30 tabs Allergies Allergy/AdvReac Type Severity Reaction Status Date / Time metoclopramide Allergy ALGY-Rash Verified 09/27/23 06:48 PFSH ED 2 PFSH: Surgical History Status post laparoscopic cholecystectomy (07/13/21) Social History Smoking and tobacco/nicotine status: never used tobacco/nicotine Course 2 Vital Signs: Vital signs: Vital Signs Temperature 98.2 F 02/06/25 19:49 Pulse Rate 89 02/07/25 00:02 Respiratory Rate 16 02/07/25 00:02 Blood Pressure 102/63 02/07/25 00:02 Pulse Oximetry 99 02/07/25 00:02 Oxygen Delivery Me thod Room Air 02/06/25 22:30 MDM - Nausea/Vomiting/Diarrhea Medical Decision Making Hyperemesis gravidarum: Patient reports nausea and vomiting 3 times daily for the past 17 days, consistent with hyperemesis gravidarum. Last menstrual period reported as January 10, but hCG levels 137,000 suggest she may be further along than 5 weeks gestation. Patient has experienced similar symptoms in previous pregnancies, though onset was earlier this time. Abdominal pain reported suprapubic - Administer IV fluids for hydration - Perform urinalysis to rule out urinary tract infection - Performed a limited ultrasound to verify intrauterine Gastritis/Heartburn: Patient's reports gastritis symptoms and difficulty eating. This may be related to -induced gastroesophageal reflux or exacerbation of pre-existing gastritis. - Administered GI cocktail with minimal improvement - Educate on dietary modifications and lifestyle changes to manage symptoms Patient checked out at shift change. She is improved after IV antiemetic and fluid bolus here. Ultrasound reveals a single live intrauterine at 9 weeks. heart rate is normal. Tiny subchorionic hematomas. With her improvement, she will be allowed discharge on antiemetics. She will call her primary doctor in the morning for follow-up appointment. Lab Data 02/06/25 20:18 02/06/25 20:18 Radiology Impressions Ultrasound 02/06/25 21:48 IMPRESSION: 1. Single live intrauterine with estimated gestational age 9 weeks 0 days. Normal heart rate. 2. Tiny mildly complex fluid collections adjacent to the gestational sac measuring up to 1.5 cm could represent small subchorionic hematomas. Laboratory Results WBC 10.58 10^3/uL (3.29-11.43) 02/06/25 20:18 RBC 4.84 10^6/uL (3.85-5.65) 02/06/25 20:18 Hgb 14.00 g/dL (11.27-16.99) 02/06/25 20:18 Hct 40.4 % (36-47) 02/06/25 20:18 MCV 83.5 fl (85-98) L 02/06/25 20:18 MCH 28.9 pg (27-33) 02/06/25 20:18 MCHC 34.7 g/dL (30-55) 02/06/25 20:18 RDW 12.5 % (12.1-15.1) 02/06/25 20:18 Plt Count 248 10^3/cmm (157-399) 02/06/25 20:18 MPV 10.7 fL (7.4-10.4) H 02/06/25 20:18 Neut % (Auto) 74.4 % 02/06/25 20:18 Lymph % (Auto) 15.9 % 02/06/25 20:18 [place] % (Auto) 5.1 % 02/06/25 20:18 Eos % (Auto) 3.7 % 02/06/25 20:18 Baso % (Auto) 0.5 % 02/06/25 20:18 Neut # (Auto) 7.88 10^3/uL (1.8-7.7) H 02/06/25 20:18 Lymph # (Auto) 1.7 10^3/uL (0.8-4.8) 02/06/25 20:18 [place] # (Auto) 0.5 10^3/uL (0.2-0.9) 02/06/25 20:18 Eos # (Auto) 0.4 10^3/uL (0.0-0.8) 02/06/25 20:18 Baso # (Auto) 0.1 10^3/uL (0.0-0.1) 02/06/25 20:18 Nucleated RBC % (auto) 0 % 02/06/25 20:18 Nucleated RBCs # 0.0 /100WBC 02/06/25 20:18 Sodium 135 mmol/L (136-145) L 02/06/25 20:18 Potassium 3.9 mmol/L (3.5-5.1) 02/06/25 20:18 Chloride 99 mmol/L (98-107) 02/06/25 20:18 Carbon Dioxide 23 mmol/L (22-29) 02/06/25 20:18 Anion Gap 16.9 (5-19) 02/06/25 20:18 BUN 8 mg/dL (6-20) 02/06/25 20:18 Creatinine 0.4 mg/dL (0.5-0.9) L 02/06/25 20:18 GFR Calculation 223.8 mL/min (90-130) H 02/06/25 20:18 Glucose 93 mg/dL (65-115) 02/06/25 20:18 Calculated Osmolality 278 mOsm/kg (285-295) L 02/06/25 20:18 Calcium 9.2 mg/dL (8.5-10.5) 02/06/25 20:18 Total Bilirubin 0.5 mg/dL (0.15-1.2) 02/06/25 20:18 AST 40 U/L (0-32) H 02/06/25 20:18 ALT 79 U/L (0-33) H 02/06/25 20:18 Alkaline Phosphatase 106 U/L (35-105) H 02/06/25 20:18 Total Protein 7.0 g/dL (6.6-8.7) 02/06/25 20:18 Albumin 3.9 g/dL (3.5-5.2) 02/06/25 20:18 Globulin 3.1 g/dL (1.3-4.6) 02/06/25 20:18 Ser , Semi-Qnt 912520.00 mIU/mL 02/06/25 20:18 Urine Color Yellow (Yellow) 02/06/25 21:20 Urine Appearance Clear (CLEAR) 02/06/25 21:20 Urine pH 6.5 (5-7) 02/06/25 21:20 Ur Specific [place] 1.009 (1.005-1.030) 02/06/25 21:20 Urine Protein Negative (Negative) 02/06/25 21:20 Urine Glucose (UA) Negative (Normal) 02/06/25 21:20 Urine Ketones Negative (Negative) 02/06/25 21:20 Urine Blood Negative (Negative) 02/06/25 21:20 Urine Nitrate Negative (Negative) 02/06/25 21:20 Urine Bilirubin Negative (Negative) 02/06/25 21:20 Urine Urobilinogen 1.0 mg/dL (Negative) 02/06/25 21:20 Ur Leukocyte Esterase Trace (Negative) A 02/06/25 21:20 Urine RBC 0-2 /hpf (0-2) 02/06/25 21:20 Urine WBC 0-5 /hpf (0-5) 02/06/25 21:20 Ur Squamous Epith Cells 0-5 /hpf (0-5) 02/06/25 21:20 Amorphous Sediment Not Reportable 02/06/25 21:20 Urine Bacteria None seen /hpf (NONE) 02/06/25 21:20 Hyaline Casts 0-4 /lpf H 02/06/25 21:20 Discharge Plan Discharge Patient Disposition: Home Clinical Impression: Hyperemesis gravidarum Nausea and vomiting Qualifiers: Vomiting type: unspecified Qualified Code(s): R11.2 - Nausea with vomiting, unspecified Condition: Stable Prescriptions: New ondansetron 4 mg tablet,disintegrating 4 mg PO Q6H PRN (Reason: nausea and vomiting) Qty: 30 0RF famotidine [Pepcid] 20 mg tablet 20 mg PO BID Qty: 60 0RF No Action prenat.vits,shauna,[id number] Tablet 1 tab PO DAILY Discharge Orders: Discharge ED (Routine); Ordered 02/06/25 Ordered By: Isael Hardy Referrals: Loreto Bowers MD [Primary Care Provider, Family Practice] - 1-3 days Patient Instructions: Hyperemesis Gravidarum (ED), Opioid Safety, Pain Management, Patient Portal & Rashid Instructions Activity Restrictions/Additional Instructions: Return for worsening symptoms despite treatment. Medication as directed. Call your doctor in the morning for a follow-up appointment. Print Language: Mongolian Coding Level of Care Code ED Parts Manager for Nelson Dave
[2025-02-06 22:30] VITALS: BP 121/80; PULSE 82; RESP 16; O2SAT 99
[2025-02-06] MEDS: ondansetron 2 mg/ML SDV 2 mL 8 MG IVP (23:22)
[2025-02-07 00:02] VITALS: BP 102/63; PULSE 89; RESP 16; O2SAT 99
== END 2025-02-07 00:04 | disposition home or self-care (01) ==
PROVIDERS: General Practice; Emergency Provider Emergency Medicine; PCP Family Medicine
DX: O21.0 Mild hyperemesis gravidarum (principal); Z3A.00 Weeks of gestation of pregnancy not specified
CPT/HCPCS: 36415; 76801; 80053; 81001; 84702; 85025; 96361; 96374; 99284; J2405; J7030; J9999

== ENCOUNTER 2025-02-22 19:56 | Emergency (ER) | payer OTHER, SELFPAY ==
[2025-02-22 20:09] VITALS: BP 108/74; PULSE 90; RESP 20; TEMP 37; O2SAT 99
[2025-02-22 21:55] LABS: Hematocrit 41.4 % (36-47); Hemoglobin 14.50 g/dL (11.27-16.99); Mean Corpuscular HGB Conc 35.0 g/dL (30-55); Mean Corpuscular Hemoglobin 29.4 pg (27-33); Mean Corpuscular Volume 84.0 fl (85-98); Nucleated Red Blood Cells % 0 %; Platelet Count 239 10^3/cmm (157-399); Red Blood Count 4.93 10^6/uL (3.85-5.65); White Blood Count 10.90 10^3/uL (3.29-11.43)
[2025-02-22 22:04] LABS: Alanine Aminotransferase 52 U/L (0-33); Albumin Level 3.9 g/dL (3.5-5.2); Alkaline Phosphatase 103 U/L (35-105); Anion Gap 14.0 (5-19); Aspartate Amino Transferase 23 U/L (0-32); Blood Urea Nitrogen 7 mg/dL (6-20); Calcium 9.5 mg/dL (8.5-10.5); Carbon Dioxide 25 mmol/L (22-29); Chloride 100 mmol/L (98-107); Globulin 3.4 g/dL (1.3-4.6); Glucose 70 mg/dL (65-115); Lipase 30 U/L (13-60); Osmolality Calculated 276 mOsm/kg (285-295); Potassium 4.0 mmol/L (3.5-5.1); Sodium 135 mmol/L (136-145); Total Protein 7.3 g/dL (6.6-8.7)
--- NOTE | 2025-02-22 22:48 | ED_ITS ---
HPI - Nausea/Vomiting/Diarrhea 2 General: Chief complaint: Nausea/Vomiting/Diarrhea Stated complaint: N\tired\Headache Time Seen by Provider: 02/22/25 22:44 History of Present Illness: 34-year-old female who is approximately 11 weeks who presents the emergency room with continued fatigue, heartburn, nausea vomiting and a headache. She has been to the ER recently. She has multiple medications at home for this and nothing seems to be helping. No abdominal pain. No vaginal discharge. No vaginal bleeding. Related Data Home Medications ?Medication ?Instructions ?Recorded ?Confirmed prenat.vits,shauna,[id number] 1 tab PO DAILY 02/11/22 09/27/23 Previous Rx's ?Medication ?Instructions ?Recorded famotidine 20 mg tablet (Pepcid) 20 mg PO BID #60 tabs 02/06/25 ondansetron 4 mg disintegrating 4 mg PO Q6H PRN nausea and 02/06/25 tablet vomiting #30 tabs cefdinir 300 mg capsule 300 mg PO BID 5 days #10 cap s 02/22/25 ondansetron 8 mg disintegrating 8 mg PO Q6H #14 tabs 0 02/22/25 tablet promethazine 25 mg rectal 25 mg CO Q6H PRN nausea and 02/22/25 suppository vomiting #12 ea sucralfate 1 gram tablet (Carafate) 1 g PO TID 4 weeks #84 tabs 02/22/25 Allergies Allergy/AdvReac Type Severity Reaction Status Date / Time metoclopramide Allergy ALGY-Rash Verified 02/22/25 20:11 Review of Systems 2 Narrative: Constitutional symptoms: Negative except as documented in HPI. Skin symptoms: Negative except as documented in HPI. Eye symptoms: Negative except as documented in HPI. ENMT symptoms: Negative except as documented in HPI. Respiratory symptoms: Negative except as documented in HPI. Cardiovascular symptoms: Negative except as documented in HPI. Gastrointestinal symptoms: Negative except as documented in HPI. Genitourinary symptoms: Negative except as documented in HPI. Musculoskeletal symptoms: Negative except as documented in HPI. Neurologic symptoms: Negative except as documented in HPI. Psychiatric symptoms: Negative except as documented in HPI. Endocrine symptoms: Negative except as documented in HPI. PFSH ED 2 PFSH: Surgical History Status post laparoscopic cholecystectomy (12/31/21) Social History Smoking and tobacco/nicotine status: never used tobacco/nicotine Physical Exam 2 Narrative: EXAM NARRATIVE: General: Alert, no acute distress. Skin: Warm, dry. Head: Normocephalic, atraumatic. Neck: Supple, trachea midline. Eye: Extraocular movements are intact. Ears, nose, mouth and throat: mucosa moist. Cardiovascular: Regular, Normal peripheral perfusion. Respiratory: Lungs are clear to auscultation, respirations are non-labored, breath sounds are equal, Symmetrical chest wall expansion. Gastrointestinal: Soft, Nontender, gravid Musculoskeletal: Normal ROM, no deformity. Neurological: Alert and oriented, No focal neurological deficit observed. Psychiatric: Cooperative, appropriate mood & affect. Course 2 Vital Signs: Vital signs: Vital Signs Temperature 98.6 F 02/22/25 20:09 Pulse Rate 80 02/22/25 23:49 Respiratory Rate 20 H 02/22/25 20:09 Blood Pressure 106/77 02/22/25 23:49 Pulse Oximetry 100 02/22/25 23:49 Oxygen Delivery Me thod Room Air 02/22/25 23:07 MDM - Nausea/Vomiting/Diarrhea Medical Decision Making Medical decision making: Differential diagnosis for this patient with nausea and vomiting including but not limited to and based on the above HPI, review of systems and physical exam: Urinary tract infection. Appendicitis. Cholecystitis. Hyperemesis. Dehydration. Renal failure. Gastroenteritis. Orders placed to evaluate differential diagnosis based on the above differential, HPI and physical exam Lab Review: Laboratory results were reviewed and interpreted by myself the emergency room physician. Lab work is fairly unremarkable. No leukocytosis. No anemia. No renal failure. She does have signs of a urinary tract infection with 11-20 whites and 1+ bacteria. I reviewed the patient's medical record. Reexamination: Patient has remained stable. No increased work of breathing. No altered mental status. She says she feels quite a bit better Assessment and plan: Hyperemesis gravidarum Urinary tract infection ?Normal saline bolus, IV fluids, IV Pepcid and IV Zofran - Discharged home - Discussed plan with patient. Answered any questions. - Evaluation and treatment of this problem were appropriate in the emergency setting. Lab Data 02/22/25 21:15 02/22/25 21:15 Laboratory Results WBC 10.90 10^3/uL (3.29-11.43) 02/22/25 21:15 RBC 4.93 10^6/uL (3.85-5.65) 02/22/25 21:15 Hgb 14.50 g/dL (11.27-16.99) 02/22/25 21:15 Hct 41.4 % (36-47) 02/22/25 21:15 MCV 84.0 fl (85-98) L 02/22/25 21:15 MCH 29.4 pg (27-33) 02/22/25 21:15 MCHC 35.0 g/dL (30-55) 02/22/25 21:15 RDW 13.0 % (12.1-15.1) 02/22/25 21:15 Plt Count 239 10^3/cmm (157-399) 02/22/25 21:15 MPV 10.7 fL (7.4-10.4) H 02/22/25 21:15 Neut % (Auto) 71.7 % 02/22/25 21:15 Lymph % (Auto) 17.9 % 02/22/25 21:15 [place] % (Auto) 5.0 % 02/22/25 21:15 Eos % (Auto) 4.4 % 02/22/25 21:15 Baso % (Auto) 0.5 % 02/22/25 21:15 Neut # (Auto) 7.83 10^3/uL (1.8-7.7) H 02/22/25 21:15 Lymph # (Auto) 2.0 10^3/uL (0.8-4.8) 02/22/25 21:15 [place] # (Auto) 0.5 10^3/uL (0.2-0.9) 02/22/25 21:15 Eos # (Auto) 0.5 10^3/uL (0.0-0.8) 02/22/25 21:15 Baso # (Auto) 0.1 10^3/uL (0.0-0.1) 02/22/25 21:15 Nucleated RBC % (auto) 0 % 02/22/25 21:15 Nucleated RBCs # 0.0 /100WBC 02/22/25 21:15 Sodium 135 mmol/L (136-145) L 02/22/25 21:15 Potassium 4.0 mmol/L (3.5-5.1) 02/22/25 21:15 Chloride 100 mmol/L (98-107) 02/22/25 21:15 Carbon Dioxide 25 mmol/L (22-29) 02/22/25 21:15 Anion Gap 14.0 (5-19) 02/22/25 21:15 BUN 7 mg/dL (6-20) 02/22/25 21:15 Creatinine 0.4 mg/dL (0.5-0.9) L 02/22/25 21:15 GFR Calculation 223.8 mL/min (90-130) H 02/22/25 21:15 Glucose 70 mg/dL (65-115) 02/22/25 21:15 Calculated Osmolality 276 mOsm/kg (285-295) L 02/22/25 21:15 Calcium 9.5 mg/dL (8.5-10.5) 02/22/25 21:15 Total Bilirubin 0.5 mg/dL (0.15-1.2) 02/22/25 21:15 AST 23 U/L (0-32) 02/22/25 21:15 ALT 52 U/L (0-33) H 02/22/25 21:15 Alkaline Phosphatase 103 U/L (35-105) 02/22/25 21:15 Total Protein 7.3 g/dL (6.6-8.7) 02/22/25 21:15 Albumin 3.9 g/dL (3.5-5.2) 02/22/25 21:15 Globulin 3.4 g/dL (1.3-4.6) 02/22/25 21:15 Lipase 30 U/L (13-60) 02/22/25 21:15 Ser , Semi-Qnt 933864.00 mIU/mL 02/22/25 21:15 Urine Color Yellow (Yellow) 02/22/25 23:17 Urine Appearance Clear (CLEAR) 02/22/25 23:17 Urine pH 5.5 (5-7) 02/22/25 23:17 Ur Specific [place] 1.013 (1.005-1.030) 02/22/25 23:17 Urine Protein Negative (Negative) 02/22/25 23:17 Urine Glucose (UA) Negative (Normal) 02/22/25 23:17 Urine Ketones Negative (Negative) 02/22/25 23:17 Urine Blood Negative (Negative) 02/22/25 23:17 Urine Nitrate Negative (Negative) 02/22/25 23:17 Urine Bilirubin Negative (Negative) 02/22/25 23:17 Urine Urobilinogen 1.0 mg/dL (Negative) 02/22/25 23:17 Ur Leukocyte Esterase 1+ (Negative) A 02/22/25 23:17 Urine RBC 0-2 /hpf (0-2) 02/22/25 23:17 Urine WBC 11-20 /hpf (0-5) H 02/22/25 23:17 Ur Squamous Epith Cells 6-10 /hpf (0-5) 02/22/25 23:17 Amorphous Sediment Not Reportable 02/22/25 23:17 Urine Bacteria 1+ /hpf (NONE) H 02/22/25 23:17 Hyaline Casts 0-4 /lpf H 02/22/25 23:17 No radiology studies performed this visit Discharge Plan Discharge Patient Disposition: Home Clinical Impression: Hyperemesis gravidarum, Urinary tract infection affecting Condition: Stable Prescriptions: New promethazine 25 mg suppository 25 mg CO Q6H PRN (Reason: nausea and vomiting) Qty: 12 0RF sucralfate [Carafate] 1 gram tablet 1 g PO TID 28 Days Qty: 84 0RF Rx Instructions: with meals ondansetron 8 mg tablet,disintegrating 8 mg PO Q6H Qty: 14 0RF Rx Instructions: Take 1/2-1 tab every 6 hours as needed for nausea and vomiting cefdinir 300 mg capsule 300 mg PO BID 5 Days Qty: 10 0RF No Action ondansetron 4 mg tablet,disintegrating 4 mg PO Q6H PRN (Reason: nausea and vomiting) Qty: 30 0RF famotidine [Pepcid] 20 mg tablet 20 mg PO BID Qty: 60 0RF prenat.vits,shauna,[id number] Tablet 1 tab PO DAILY Discharge Orders: Discharge ED (Routine); Ordered 02/22/25 Ordered By: Ksenia Crain Referrals: Loreto Bowers MD [Primary Care Provider, Family Practice] Discharge Diet: Advance as tolerated Discharge Activity: Increase activity as tolerated Patient Instructions: Hyperemesis Gravidarum (ED), Opioid Safety, Pain Management, Patient Portal & Rashid Instructions Activity Restrictions/Additional Instructions: Thank you for choosing [facility] for your healthcare needs today. You have been screened and evaluated and felt safe for discharge. Health conditions do change or evolve sometimes and as such it is important that you follow up with your Primary Doctor to be re checked, 3-5 days is a general good time frame for follow up. You are always welcome to return to the ED for re assessment if your symptoms are worsening or you have new concerns Print Language: Haitian Coding Level of Care Code ED Organic Preparation Technician for Nelson Dave
[2025-02-22 23:07] VITALS: BP 100/63; PULSE 77; O2SAT 100
[2025-02-22 23:38] LABS: Glucose Urine UA Negative (Normal); Nitrate Urine Negative (Negative); Specific Gravity, Urine 1.013 (1.005-1.030)
[2025-02-22 23:49] VITALS: BP 106/77; PULSE 80; O2SAT 100
[2025-02-23] MEDS: cefTRIAXone 1,000 mg SDV 1000 MG IVP (00:47)
[2025-02-23 01:02] VITALS: BP 116/84; PULSE 85; O2SAT 99
== END 2025-02-23 01:04 | disposition home or self-care (01) ==
PROVIDERS: Emergency Provider Emergency Medicine; PCP Family Medicine
DX: O21.0 Mild hyperemesis gravidarum (principal); O23.41 Unspecified infection of urinary tract in pregnancy, first trimester; N39.0 Urinary tract infection, site not specified; Z3A.11 11 weeks gestation of pregnancy
CPT/HCPCS: 36415; 80053; 81001; 83690; 84702; 85025; 96374; 96375; 99284; J0696; J3490